=== PATIENT | male | born 1945 | race Caucasian/White ===

== ENCOUNTER → 2016-10-06 | Outpatient (CLI) | payer OTHER ==
[~2016-10-06] MED LIST: ALLO300T2 PO; AMLO-110 PO; ASPI-435 PO; ATOR10TA88 PO; BENA1TAB19 PO; CHOL1000 PO; COLC0.6T54 PO; FLM4 PO; INSUINJ12 SC; LEVE500T13 PO; LVMI SQ; METO50TA17 PO; NTRGSL/4 SL; NVLG SQ; NVLGI SC; PANT1TAB48 PO; PHEN-1043 PO; PRS5 PO; PYRI50TA2 PO; SENN-91 PO
[2016-10-06 13:28] LABS: ESTIMATED AVERAGE GLUCOSE 206 mg/dl; HA1C FLAG Normal (Normal)
[2016-10-06 13:41] LABS: HEMATOCRIT 42.5 % (42-52); MEAN CELL VOLUME 86.9 fL (80-100); MEAN CORPUSCULAR HEMOGLOBIN 28.2 pg (25-34); MEAN CORPUSCULAR HGB CONC 32.5 g/dl (32-36); MEAN PLATELET VOLUME 11.7 fL (7.4-10.4); PLATELET COUNT 217 K/uL (130-400); RED BLOOD COUNT 4.89 M/uL (4.7-6.1); WHITE BLOOD COUNT 7.73 K/uL (4.8-10.8)
[2016-10-06 13:46] LABS: BLOOD UREA NITROGEN 41 mg/dl (7-18); BUN/CREATININE RATIO 21.3 (10-20); CALCIUM 9.4 mg/dl (8.5-10.1); CARBON DIOXIDE 24 mmol/L (21-32); CHLORIDE 108 mmol/L (98-107); GLUCOSE 178 mg/dl (70-99); PHOSPHORUS 3.6 mg/dl (2.5-4.9); POTASSIUM 4.5 mmol/L (3.5-5.1); SODIUM 142 mmol/L (136-145)
[2016-10-06 13:49] LABS: URINE APPEARANCE CLEAR (CLEAR); URINE BILIRUBIN NEG (NEG); URINE COLOR YELLOW; URINE EPITHELIAL CELL AUTO >30 /lpf (0-5); URINE NITRITE NEG (NEG); URINE PROTIEN/CREAT RATIO 0.4 (0-0.2); URINE SPECIFIC GRAVITY 1.011 (1.000-1.030); URINE TOTAL PROTEIN 49.4 mg/dl (0-11.9); UROBILINOGEN NEG (NEG)
[2016-10-06 14:01] LABS: MANUAL MICROSCOPIC REQUIRED? NO; REVIEW REQ? YES
== END ==
LOC: C.LABMFLN 16:26
PROVIDERS: ATTEND Internal Medicine Nephrology
DX: N18.3 Chronic kidney disease, stage 3 (moderate) (principal); E55.9 Vitamin D deficiency, unspecified; E11.22 Type 2 diabetes mellitus with diabetic chronic kidney disease

== ENCOUNTER → 2017-01-10 | Outpatient (CLI) | payer OTHER ==
[~2017-01-10] MED LIST changes: +ATOR10TA82 PO; -ATOR10TA88 PO; -BENA1TAB19 PO; +BENA1TAB53 PO; -PYRI50TA2 PO; +PYRI50TA8 PO
== END | disposition home or self-care (01) ==
LOC: C.LABMFLN 11:14
PROVIDERS: ATTEND Physician Assistant
DX: R30.0 Dysuria (principal); A49.8 Other bacterial infections of unspecified site

== ENCOUNTER 2017-01-11 11:36 | Inpatient (IN) | payer OTHER ==
[~2017-01-11] VITALS: Ht 167.6 cm; Wt 96.6 kg
[~2017-01-11 11:36] MED LIST changes: -ASPI-435 PO; -BENA1TAB53 PO; -FLM4 PO; -LVMI SQ; -METO50TA17 PO; -NVLG SQ; -PHEN-1043 PO; -PRS5 PO
[2017-01-11] MEDS ORDERED: BENA1TAB53 PO (11:59)
[2017-01-11] MEDS ORDERED: LVMI SQ (11:59)
[2017-01-11] MEDS ORDERED: ASPI-435 PO (11:59)
[2017-01-11] MEDS ORDERED: NVLG SQ (11:59)
[2017-01-11] MEDS ORDERED: SODIUM CHLORIDE 0.9% 1000ML 250 ML IV STA (12:44)
[2017-01-11] MEDS ORDERED: SODIUM CHLORIDE 0.9% 1000ML 1,000 ML IV STA (12:44)
--- NOTE | 2017-01-11 13:04 | DIAGNOSTIC IMAGING REPORT ---
CHEST ONE VIEW PORTABLE CLINICAL HISTORY: CHEST PAIN pain COMPARISON STUDY: 06/08/2016 FINDINGS: Mild cardiomegaly. Prior median sternotomy. Diaphragms smooth. Lungs are clear. IMPRESSION: Mild stable cardiomegaly. Otherwise negative study Electronically signed by: Prashant Glasgow M.D. 01/11/2017 1:03 PM Dictated Date/Time: 01/11/2017 1:02 PM
[2017-01-11] MEDS ORDERED: CEFTRIAXONE SOD INJ 1 GM ADDVIAL IV STA (13:10)
[2017-01-11 13:40] LABS: HEMATOCRIT 35.2 % (42-52); MEAN CELL VOLUME 87.8 fL (80-100); MEAN CORPUSCULAR HEMOGLOBIN 29.2 pg (25-34); MEAN CORPUSCULAR HGB CONC 33.2 g/dl (32-36); MEAN PLATELET VOLUME 10.9 fL (7.4-10.4); PLATELET COUNT 192 K/uL (130-400); RED BLOOD COUNT 4.01 M/uL (4.7-6.1); WHITE BLOOD COUNT 26.32 K/uL (4.8-10.8)
[2017-01-11 13:52] LABS: INR 1.1 (0.9-1.1); PARTIAL THROMBOPLASTIN RATIO 1.3
[2017-01-11 14:03] LABS: BUN/CREATININE RATIO 14.8 (10-20); CALCIUM 9.4 mg/dl (8.5-10.1); CREATININE 2.6 mg/dl (0.60-1.40); POTASSIUM 3.9 mmol/L (3.5-5.1)
--- NOTE | 2017-01-11 14:03 | DIAGNOSTIC IMAGING REPORT ---
HEAD CT NONCONTRAST CT DOSE: 638.56 mGycm HISTORY: Mental status change eval for weakness in left leg TECHNIQUE: Multiaxial CT images of the head were performed without the use of intravenous contrast. Comparison: 10/31/2015 Findings: The paranasal sinuses and mastoid air cells are clear. Old right cerebral infarct unchanged in the prior exam. No new or interval finding. No evidence for acute intracranial hemorrhage. No midline shift. Impression: Old right cerebral infarct. No acute process. Electronically signed by: Prashant Glasgow M.D. 01/11/2017 2:02 PM Dictated Date/Time: 01/11/2017 2:00 PM
[2017-01-11 14:32] LABS: BASO % 0.2 %; BASO ABS # 0.04 K/uL (0-0.2); COMPLETE YES; IG% 0.5 %; LYMPH % 8.5 %; LYMPH ABS # 2.24 K/uL (1.2-3.4); MONO % 5.4 %; NEUT % 85.4 %
--- NOTE | 2017-01-11 14:50 | EMERGENCY ROOM VISIT NOTE ---
History Report prepared by Anthony: Alphonso Molina Under the Supervision of: Dr. Virgilio Regalado M.D. First contact with patient: 12:40 Chief Complaint: FALL Stated Complaint: FALL,FEVER History of Present Illness The patient is a 71 year old male who presents to the Emergency Room with complaints of persistent fever of 102 degrees beginning two days ago. He was seen by his PCP's office yesterday for similar symptoms. Per , the patient has been having increased urinary frequency recently. She states that the patient was started on Ciprofloxacin for a possible UTI yesterday. The patient states that he developed diarrhea last night. He denies any black or bloody stool. The patient's states that the patient has fallen three times since yesterday as well. She states "his legs just give out". She states that he has been having difficulties with this for several days. The patient states that the only part of his body that hurts are his knees. He has a history of previous strokes, and has baseline left leg weakness. He denies any chest pain, SOB, or headache. The patient is not on any blood thinners other than aspirin. Source of History: patient, spouse/significant other () Onset: Yesterday Symptom Intensity: 102 degrees Quality: other (fever) Timing: other (persistent) Associated Symptoms: + urinary symptoms (increased frequency), No SOB, No chest pain, No headache Review of Systems See HPI for pertinent positives & negatives. A total of 10 systems reviewed and were otherwise negative. Past Medical & Surgical Medical Problems: (1) CVA (cerebral infarction) (2) Diabetes (3) Hyperkalemia (4) Pulmonary embolism Surgical Problems: (1) H/O heart bypass surgery (2) History of back surgery (3) History of penile implant Old medical records were reviewed. Nurse's notes were reviewed and I agree with. Family History Diabetes mellitus Hypertension Kidney disease Social History Smoking Status: Former Smoker Alcohol Use: none Drug Use: none Marital Status: Housing Status: lives with family Occupation Status: retired Current/Historical Medications Scheduled Allopurinol (Zyloprim), 300 MG PO DAILY Amlodipine (Norvasc), 10 MG PO DAILY Aspirin (Aspirin 81), 81 MG PO DAILY Atorvastatin (Lipitor), 20 MG PO DAILY Benazepril (Lotensin), 40 MG PO DAILY Cholecalciferol (Vitamin D3), 5,000 UNITS PO DAILY Colchicine (Colchicine), 0.6 MG PO DAILY Insulin Aspart (Novolog), 18 UNIT SQ WM Insulin Detemir (Levemir), 65 UNITS SQ HS Levetiracetam (Keppra), 500 MG PO Q12 Nitroglycerin (Nitrostat), 1 TAB SL UD Pantoprazole (Protonix), 40 MG PO DAILY Pyridoxine Hcl (Vitamin B-6), 100 MG PO DAILY Sennosides-Docusate Sodium (Senna S), 1 TABLET PO AMPM Allergies Coded Allergies: Aspirin (Verified Allergy, Severe, SWOLLEN TONGUE, 01/11/17) Citric Acid (Verified Allergy, Severe, SWOLLEN TONGUE, 01/11/17) Sodium Bicarbonate (Verified Allergy, Severe, SWOLLEN TONGUE, 01/11/17) Adhesives (Verified Allergy, Unknown, SKIN BLISTERS AND TEARING, 01/11/17) Physical Exam Vital Signs Date Time Temp Pulse Resp B/P Pulse Ox O2 Delivery O2 Flow Rate FiO2 01/11/17 14:06 98 20 143/71 01/11/17 12:38 100 24 163/90 95 Room Air 01/11/17 12:35 95 Room Air 01/11/17 11:40 36.8 108 20 135/66 97 Room Air Physical Exam General: Well developed, well nourished, chronically ill appearing older male in no acute distress, breathing comfortably on room air. Normal speech. [place] catheter in place with a leg bag in place draining yellow urine. HEENT: Normal cephalic atraumatic. Pupils are equal round and reactive to light. Extraocular movements are intact. Oropharynx is pink with moist mucous membranes. No swelling of the mouth lips or tongue. Neck: Supple with a midline trachea. No meningeal signs or stiffness, no JVD or bruits. No Stridor. Chest: Clear to auscultation bilaterally. No wheezes or rhonchi. No increased work of breathing. Heart: regular rate and rhythm. Abdomen: Soft nontender, nondistended without rebound guarding or rigidity. Extremities: No cyanosis clubbing or edema. No calf tenderness or assymetry Spine/Back. Non tender to palpation. No CVA tenderness Skin: Good turgor without rashes. Neurologic exam: Cranial nerves two through 12 are intact. Motor and sensation are intact. Baseline weakness of the left side. Medical Decision & Procedures ER Provider Diagnostic Interpretation: Radiology results as stated below per my review and radiologist interpretation: HEAD CT NONCONTRAST Findings: The paranasal sinuses and mastoid air cells are clear. Old right cerebral infarct unchanged in the prior exam. No new or interval finding. No evidence for acute intracranial hemorrhage. No midline shift. Impression: Old right cerebral infarct. No acute process. Electronically signed by: Prashant Glasgow M.D. CHEST ONE VIEW PORTABLE FINDINGS: Mild cardiomegaly. Prior median sternotomy. Diaphragms smooth. Lungs are clear. IMPRESSION: Mild stable cardiomegaly. Otherwise negative study Electronically signed by: Prashant Glasgow M.D. Laboratory Results 01/11/17 13:15 Red Blood Count 4.01, Mean Corpuscular Volume 87.8, Mean Corpuscular Hemoglobin 29.2, Mean Corpuscular Hemoglobin Concent 33.2, Mean Platelet Volume 10.9, Neutrophils (%) (Auto) 85.4, Lymphocytes (%) (Auto) 8.5, Monocytes (%) (Auto) 5.4, Eosinophils (%) (Auto) 0.0, Basophils (%) (Auto) 0.2, Neutrophils # (Auto) 22.50, Lymphocytes # (Auto) 2.24, Monocytes # (Auto) 1.42, Eosinophils # (Auto) 0.00, Basophils # (Auto) 0.04 01/11/17 13:15 Test 01/11/17 12:23 01/11/17 13:15 01/11/17 13:18 01/11/17 13:21 Bedside Prothrombin Time INR 1.2 (0.9-1.1) Bedside Glucose 179 mg/dl (70-99) White Blood Count 26.32 K/uL (4.8-10.8) Red Blood Count 4.01 M/uL (4.7-6.1) Hemoglobin 11.7 g/dL (14.0-18.0) Hematocrit 35.2 % (42-52) Mean Corpuscular Volume 87.8 fL (80-100) Mean Corpuscular Hemoglobin 29.2 pg (25-34) Mean Corpuscular Hemoglobin Concent 33.2 g/dl (32-36) Platelet Count 192 K/uL (130-400) Mean Platelet Volume 10.9 fL (7.4-10.4) Neutrophils (%) (Auto) 85.4 % Lymphocytes (%) (Auto) 8.5 % Monocytes (%) (Auto) 5.4 % Eosinophils (%) (Auto) 0.0 % Basophils (%) (Auto) 0.2 % Neutrophils # (Auto) 22.50 K/uL (1.4-6.5) Lymphocytes # (Auto) 2.24 K/uL (1.2-3.4) Monocytes # (Auto) 1.42 K/uL (0.11-0.59) Eosinophils # (Auto) 0.00 K/uL (0-0.5) Basophils # (Auto) 0.04 K/uL (0-0.2) RDW Standard Deviation 48.9 fL (36.4-46.3) RDW Coefficient of Variation 15.2 % (11.5-14.5) Immature Granulocyte % (Auto) 0.5 % Immature Granulocyte # (Auto) 0.12 K/uL (0.00-0.02) Prothrombin Time 12.0 SECONDS (9.0-12.0) Prothromb Time International Ratio 1.1 (0.9-1.1) Activated Partial Thromboplast Time 34.1 SECONDS (21.0-31.0) Partial Thromboplastin Ratio 1.3 Anion Gap 8.0 mmol/L (3-11) Est Creatinine Clear Calc Drug Dose 27.4 ml/min Estimated GFR () 27.1 Estimated GFR (Non- 23.4 BUN/Creatinine Ratio 14.8 (10-20) Calcium Level 9.4 mg/dl (8.5-10.1) Total Bilirubin 0.8 mg/dl (0.2-1) Direct Bilirubin 0.2 mg/dl (0-0.2) Aspartate Amino Transf (AST/SGOT) 31 U/L (15-37) Alanine Aminotransferase (ALT/SGPT) 49 U/L (12-78) Alkaline Phosphatase 95 U/L (45-117) Total Protein 8.0 gm/dl (6.4-8.2) Albumin 3.4 gm/dl (3.4-5.0) Lipase 139 U/L (73-393) Bedside Troponin I 0.810 ng/ml (0-0.045) Bedside Lactic Acid Venous 1.55 mmol/L (0.90-1.70) Laboratory studies as stated above per my review. Medications Administered Medications (Trade) Dose Ordered Sig/Ziyad Route Start Time Stop Time Status Last Admin Dose Admin Sodium Chloride 250 ml @ 999 mls/hr Q16M STAT IV 01/11/17 12:44 01/11/17 12:59 DC 01/11/17 13:08 999 MLS/HR Sodium Chloride (Nss 1000ml) 1,000 ml @ 100 mls/hr Q10H STAT IV 01/11/17 12:44 01/11/17 22:43 01/11/17 13:05 100 MLS/HR Ceftriaxone Sodium (Rocephin Inj) 1 gm NOW STAT IV 01/11/17 13:10 01/11/17 13:12 DC 01/11/17 14:42 1 GM ECG Indication: other (falls) Rate (beats per minute): 99 Rhythm: normal sinus Findings: other (LVH. LAD. ) Comparison ECG Date: Jun 08, 2016 Change: The rate has increased. ED Course 1240: Past medical records reviewed. The patient was evaluated in room B12B, and a complete history and physical examination were performed. 1244: Ordered Sodium Chloride 1000 ml @ 100 mls/hr IV, Sodium Chloride 250 ml @ 999 mls/hr IV. 1322: I reassessed the patient. She is resting comfortably awaiting his CT. 1310: Ordered Rocephin Inj 1 gm IV. 1442: Upon reevaluation, the patient is resting comfortably. I discussed the results and treatment plan with the patient. He verbalized agreement of the treatment plan. The patient will be evaluated for further management. Medical Decision Differentials include, but are not limited to; sepsis, UTI, CVA, dehydration, and electrolyte or metabolic abnormality. This patient comes in as described above. he's had weakness and falls. He was seen by his doctors office yesterday with fever and urinary symptoms. He was started on Cipro, he had 3 dosages. He's fallen twice a day has baseline weakness on his left side from previous stroke but seems more weaker just in general. IV access established. Initially he was coughing and I wanted make sure he was in congestive heart failure so was given a smaller bolus initially as he was normotensive and non-tachycardic. Chest x-ray noted up being clear. I checked his urinalysis from yesterday and culture and he has gram negative bacilli. Most likely this is Escherichia coli. I did consult hour ED pharmacist recommended Rocephin based on this. He was given 1 g Rocephin IV. His lactic acid is not elevated. His white count was significantly elevated. BUN and creatinine are elevated compared to baseline mildly. He is not anemic. CAT scan of his head is unremarkable. With his creatinine being at more elevated as well as his white count being elevated, I did also order a CT stone study to make sure that he does not have a no obstructive uropathy. I have consulted Dr. Gray who saw the patient ER and will admit him for further treatment and evaluation. Consults Time Called: 1418 Consulting Physician: Dr. Vianney IniguezTHE [facility] [place] Returned Call: [phone] Discussed the patient's case with Dr. Faith. The patient will be evaluated for further management. Impression Primary Impression: UTI (urinary tract infection) Additional Impressions: Sepsis Weakness Scribe Attestation The scribe's documentation has been prepared under my direction and personally reviewed by me in its entirety. I confirm that the note above accurately reflects all work, treatment, procedures, and medical decision making performed by me. Departure Information Dispostion Being Evaluated By Hospitalist Referrals Tamiko Maier M.D. (PCP) Patient Instructions My [facility] Problem Qualifiers
[2017-01-11] MEDS ORDERED: POLYETHYLENE (MIRALAX) 17 GM PACK PO PRN (15:00)
[2017-01-11] MEDS ORDERED: NITROGLYCERIN 0.4 MG SL PER TAB CHARGE SL PRN (15:00)
[2017-01-11] MEDS ORDERED: MAGNESIUM HYDROXIDE SUSP 30 ML UDC PO PRN (15:00)
[2017-01-11] MEDS ORDERED: ALUMINUM/MAGNESIUM/SIMETH (MAALOX MAX) 30 ML UDC PO PRN (15:00)
[2017-01-11] MEDS ORDERED: ONDANSETRON INJ 2 MG/ML 2 ML VIAL IV PRN (15:00)
[2017-01-11] MEDS ORDERED: GLUCOSE 10 TABS/TUBE PO PRN (15:15)
[2017-01-11] MEDS ORDERED: GLUCAGON FOR INJ 1 MG VIAL SQ PRN (15:15)
[2017-01-11] MEDS ORDERED: DEXTROSE 50% 50 ML SYR IV PRN (15:15)
[2017-01-11] MEDS ORDERED: GLUCOSE 40% GEL 15 GM TUBE PO PRN (15:15)
--- NOTE | 2017-01-11 15:27 | History and Physical ---
History & Physical Date & Time of Service: January 11, 2017 at 15:02 Chief Complaint: Fall,Fever Primary Care Physician: Tamiko Maier M.D. History of Present Illness Source: patient, family, clinic records, hospital records Patient is a pleasant 71 y/o male, with PMHx of CVA w/ residual left-sided weakness, T2DM, CKD stage III, HTN, seizure disorder, GERD, and gout, who presented to the ED because of persistent fevers/chills, weakness, and pain w/ urination. According to family, patient has been spiking a fever around 102 since Tuesday. Patient admits to bilateral lower extremity weakness. According to family, patient is usually able to ambulate w/ a walker. On Tuesday, patient was so weak, he was unable to ambulation to hindu. +burning w/ urination. Patient does have a history of CVA w/ residual left-sided weakness. Patient denies confusion, facial droop, changes in vision, slurred speech, worsening/ new weakness. Patient denies any sweats, lightheadedness, dizziness, vision changes, CP, palpitations, edema, SOB, wheezing, cough, abdominal pain, nausea, vomiting, diarrhea, melena, numbness/tingling, muscle/joint pain, anxiety/ depression, active bleeding, or new skin discoloration/changes. Past Medical/Surgical History Medical Problems: CVA w/ residual left-sided weakness T2DM CKD stage III HTN seizure disorder GERD gout Surgical Problems: (1) H/O heart bypass surgery Status: Resolved (2) History of back surgery Status: Resolved (3) History of penile implant Status: Resolved Family History Diabetes mellitus Hypertension Kidney disease Social History Smoking Status: Former Smoker Drug Use: none Marital Status: Housing status: lives with family Occupational Status: retired Immunizations History of Influenza Vaccine: Yes History of Tetanus Vaccine?: Yes History of Pneumococcal: Yes Pneumococcal Date: Mar 17, 2008 History of Hepatitis B Vaccine: Unknown Multi-Drug Resistant Organisms History of MDRO: No Allergies Coded Allergies: Aspirin (Verified Allergy, Severe, SWOLLEN TONGUE, 01/11/17) Citric Acid (Verified Allergy, Severe, SWOLLEN TONGUE, 01/11/17) Sodium Bicarbonate (Verified Allergy, Severe, SWOLLEN TONGUE, 01/11/17) Adhesives (Verified Allergy, Unknown, SKIN BLISTERS AND TEARING, 01/11/17) Home Medications Scheduled Allopurinol (Zyloprim), 300 MG PO DAILY Amlodipine (Norvasc), 10 MG PO DAILY Aspirin (Aspirin 81), 81 MG PO DAILY Atorvastatin (Lipitor), 20 MG PO DAILY Benazepril (Lotensin), 40 MG PO DAILY Cholecalciferol (Vitamin D3), 5,000 UNITS PO DAILY Colchicine (Colchicine), 0.6 MG PO DAILY Insulin Aspart (Novolog), 18 UNIT SQ WM Insulin Detemir (Levemir), 65 UNITS SQ HS Levetiracetam (Keppra), 500 MG PO Q12 Nitroglycerin (Nitrostat), 1 TAB SL UD Pantoprazole (Protonix), 40 MG PO DAILY Pyridoxine Hcl (Vitamin B-6), 100 MG PO DAILY Sennosides-Docusate Sodium (Senna S), 1 TABLET PO AMPM Physical Exam Vital Signs Date Time Temp Pulse Resp B/P Pulse Ox O2 Delivery O2 Flow Rate FiO2 01/11/17 14:06 98 20 143/71 01/11/17 12:38 100 24 163/90 95 Room Air 01/11/17 12:35 95 Room Air 01/11/17 11:40 36.8 108 20 135/66 97 Room Air General Appearance: no apparent distress, + obese Head: normocephalic, atraumatic Eyes: normal inspection, PERRL ENT: hearing grossly normal Neck: supple Respiratory/Chest: lungs clear, no respiratory distress, no accessory muscle use Cardiovascular: + tachycardia (rhythm regular ) Abdomen/GI: normal bowel sounds, soft, + tenderness (suprapubic tenderness ) Extremities/Musculoskelatal: no calf tenderness, no pedal edema Neurologic/Psych: alert, normal mood/affect, oriented x 3 Skin: normal color, warm/dry, no rash Diagnostics Laboratory Results Results Past 24 Hours Test 01/11/17 12:23 01/11/17 13:15 01/11/17 13:18 01/11/17 13:21 Range/Units Bedside Prothrombin Time INR 1.2 0.9-1.1 Bedside Glucose 179 70-99 mg/dl White Blood Count 26.32 4.8-10.8 K/uL Red Blood Count 4.01 4.7-6.1 M/uL Hemoglobin 11.7 14.0-18.0 g/dL Hematocrit 35.2 42-52 % Mean Corpuscular Volume 87.8 80-100 fL Mean Corpuscular Hemoglobin 29.2 25-34 pg Mean Corpuscular Hemoglobin Concent 33.2 32-36 g/dl Platelet Count 192 130-400 K/uL Mean Platelet Volume 10.9 7.4-10.4 fL Neutrophils (%) (Auto) 85.4 % Lymphocytes (%) (Auto) 8.5 % Monocytes (%) (Auto) 5.4 % Eosinophils (%) (Auto) 0.0 % Basophils (%) (Auto) 0.2 % Neutrophils # (Auto) 22.50 1.4-6.5 K/uL Lymphocytes # (Auto) 2.24 1.2-3.4 K/uL Monocytes # (Auto) 1.42 0.11-0.59 K/uL Eosinophils # (Auto) 0.00 0-0.5 K/uL Basophils # (Auto) 0.04 0-0.2 K/uL RDW Standard Deviation 48.9 36.4-46.3 fL RDW Coefficient of Variation 15.2 11.5-14.5 % Immature Granulocyte % (Auto) 0.5 % Immature Granulocyte # (Auto) 0.12 0.00-0.02 K/uL Prothrombin Time 12.0 9.0-12.0 SECONDS Prothromb Time International Ratio 1.1 0.9-1.1 Activated Partial Thromboplast Time 34.1 21.0-31.0 SECONDS Partial Thromboplastin Ratio 1.3 Sodium Level 140 136-145 mmol/L Potassium Level 3.9 3.5-5.1 mmol/L Chloride Level 107 98-107 mmol/L Carbon Dioxide Level 25 21-32 mmol/L Anion Gap 8.0 3-11 mmol/L Blood Urea Nitrogen 39 7-18 mg/dl Creatinine 2.60 0.60-1.40 mg/dl Est Creatinine Clear Calc Drug Dose 27.4 ml/min Estimated GFR () 27.1 Estimated GFR (Non- 23.4 BUN/Creatinine Ratio 14.8 10-20 Random Glucose 184 70-99 mg/dl Calcium Level 9.4 8.5-10.1 mg/dl Total Bilirubin 0.8 0.2-1 mg/dl Direct Bilirubin 0.2 0-0.2 mg/dl Aspartate Amino Transf (AST/SGOT) 31 15-37 U/L Alanine Aminotransferase (ALT/SGPT) 49 12-78 U/L Alkaline Phosphatase 95 45-117 U/L Total Protein 8.0 6.4-8.2 gm/dl Albumin 3.4 3.4-5.0 gm/dl Lipase 139 73-393 U/L Bedside Troponin I 0.810 0-0.045 ng/ml Bedside Lactic Acid Venous 1.55 0.90-1.70 mmol/L Microbiology Results 01/11/17 Blood Culture, Received Pending 01/11/17 Blood Culture, Received Pending Diagnostic Radiology HEAD CT NONCONTRAST CT DOSE: 638.56 mGycm HISTORY: Mental status change eval for weakness in left leg TECHNIQUE: Multiaxial CT images of the head were performed without the use of intravenous contrast. Comparison: 10/31/2015 Findings: The paranasal sinuses and mastoid air cells are clear. Old right cerebral infarct unchanged in the prior exam. No new or interval finding. No evidence for acute intracranial hemorrhage. No midline shift. Impression: Old right cerebral infarct. No acute process. Electronically signed by: Prashant Glasgow M.D. 01/11/2017 2:02 PM Dictated Date/Time: 01/11/2017 2:00 PM The status of this report is Signed. Draft = Not yet reviewed or approved by Radiologist. Signed = Reviewed and approved by Radiologist. CHEST ONE VIEW PORTABLE CLINICAL HISTORY: CHEST PAIN pain COMPARISON STUDY: 06/08/2016 FINDINGS: Mild cardiomegaly. Prior median sternotomy. Diaphragms smooth. Lungs are clear. IMPRESSION: Mild stable cardiomegaly. Otherwise negative study Electronically signed by: Prashant Glasgow M.D. 01/11/2017 1:03 PM Dictated Date/Time: 01/11/2017 1:02 PM The status of this report is Signed. Draft = Not yet reviewed or approved by Radiologist. Signed = Reviewed and approved by Radiologist. EKG REMIGIO WEATHERS ID:[id number] 11-JAN-2017 14:01:10 [facility] Normal sinus rhythm Left axis deviation Abnormal ECG When compared with ECG of 08-JUN-2016 22:38, Vent. rate has increased BY 46 BPM 25mm/s 10mm/mV 150Hz 8.0 SP2 12SL 241 VIVIANA: 13 Referred by: Referred Self Unconfirmed Vent. rate 99 BPM KS interval 172 ms QRS duration 110 ms QT/QTc 350/449 ms P-R-T axes 63 -63 84 1945 (71 yr) Male 89in 1lb [facility]15 [employer]erial [employer] Duster:CHACORTA TINAJERO Test ind: Impression Assessment and Plan 71 y/o male, with PMHx of CVA w/ residual left-sided weakness, T2DM, CKD stage III, HTN, seizure disorder, GERD, and gout, who presented to the ED because of persistent fevers/chills, weakness, and pain w/ urination. UTI w/ sepsis w/ HR >90 and WBC >12.00: - Admit to tele for cardiac monitoring - Trend cardiac enzymes- initial trop 0.810 - IV Rocephin - IVF @ 125 ml/hr - Pyridium contraindicated due to CrCl <50 - UCx and BCx pending - Tylenol PRN pain and/or fever - Head CT- negative for acute intracranial process - CXR- negative study - Abdominal CT pending CARLITOS on CKD stage III- baseline Cr. 1.6-2.0: - Treat w/ IVF - Follow PRP - Hold nephrotoxic agents Weakness: PT/OT consulted HTN: - Hold Benazepril due to CARLITOS - Continue Norvasc 10 mg daily - Hydralazine 10 mg IV PRN Gout: - Continue Allopurinol - Hold Colchicine due to CARLITOS T2DM: - Hold home regimen - BSG ACHS w/ sliding insulin scale h/o CVA w/ residual left-sided weakness: Continue ASA 81 mg daily and Lipitor 20 mg daily Seizure disorder: Keppra 500 mg PO q12h GERD: Protonix daily GI Prophylaxis: Maalox PRN, IV Zofran PRN, Colace and/or Milk of Mag PRN DVT prophylaxis: Heparin 5000 units SQ q12 hrs, PHIL and SCDs Code Status: LEVEL I, FULL Dispo: - From home, lives w/ family - PT/OT consulted - immigration services officer consulted Level of Care Telemetry Resuscitation Status FULL RESUSCITATION VTE Prophylaxis VTE Risk Assessment Done? Y/N: Yes Risk Level: Moderate Given or contraindicated: Unfractionated heparin SQ, T.E.D. Stockings, SCD's
[2017-01-11] MEDS: INSULIN ASPART 100 UNITS/ML 3 ML PEN SC SCH ×2 (16:30→21:08)
[2017-01-11 16:43] VITALS: BP 163/76; PULSE 102; TEMP 37.3; O2SAT 93
--- NOTE | 2017-01-11 16:50 | DIAGNOSTIC IMAGING REPORT ---
CT SCAN OF THE ABDOMEN AND PELVIS WITHOUT CONTRAST CLINICAL HISTORY: Generalized abdominal pain. Trauma. Small bowel obstruction. COMPARISON STUDY: October 19, 2013 TECHNIQUE: CT scan of the abdomen and pelvis was performed from the lung bases to the proximal femurs. Images are reviewed in the axial, sagittal, and coronal planes. IV contrast was not administered for this examination. CT DOSE: 2022.42 mGy.cm FINDINGS: Lower chest: There is respiratory motion artifact. There are no significant pleural effusions. There is no pneumothorax. There is small hiatal hernia Liver: There is mild hepatomegaly ((21 cm). No masses are visualized this noncontrast study. Gallbladder: Unremarkable. Spleen: The spleen is borderline enlarged measuring 11.5 cm Pancreas: Unremarkable. Adrenal glands: Unremarkable. Kidneys: The unenhanced kidneys are normal in size without hydronephrosis. There is no contour deforming renal mass lesion. No renal calculi are identified. Bowel: There are no transition zones indicate bowel obstruction. There is colonic diverticulosis. There are no acute peridiverticular inflammatory changes. There is no evidence of acute appendicitis Peritoneum: There is no intraperitoneal free air or abdominal ascites. There is small fat-containing hernias. Vasculature: There is an indwelling IVC filter. There is no abdominal aortic aneurysm. Adenopathy: None. Pelvic viscera: The prostate is enlarged measuring 6.3 cm. There is a reservoir from a trial implant. There is bladder wall thickening. Skeletal structures: There are postsurgical changes of discectomies laminectomies and posterior spinal fusion. IMPRESSION: 1. No acute abdominal or pelvic findings 2. No evidence of bowel obstruction. No evidence of free air 3. Diverticulosis. No evidence of acute diverticulitis. No evidence of acute appendicitis 4. Prostamegaly and mild bladder wall thickening Electronically signed by: Julius Veronica M.D. 01/11/2017 4:48 PM Dictated Date/Time: 01/11/2017 4:43 PM
[2017-01-11 17:03] VITALS: BP 163/76; PULSE 102; TEMP 37.3; O2SAT 93; Ht 167.6 cm; Wt 96.6 kg
[2017-01-11] MEDS: SODIUM CHLORIDE 0.9% 1000ML 1,000 ML IV SCH (17:26)
[2017-01-11] MEDS: ACETAMINOPHEN 325 MG TAB PO PRN (17:34)
[2017-01-11 19:13] VITALS: BP 130/63; PULSE 98; TEMP 37; O2SAT 92
[2017-01-11] MEDS: LEVETIRACETAM 500 MG TAB PO SCH (21:01)
[2017-01-11] MEDS: HEPARIN SOD 5000 UNIT/0.5 ML CARP SQ SCH (21:08)
[2017-01-11 21:50] LABS: URINE APPEARANCE CLEAR (CLEAR); URINE BILIRUBIN NEG (NEG); URINE COLOR YELLOW; URINE EPITHELIAL CELL AUTO >30 /lpf (0-5); URINE NITRITE NEG (NEG); URINE SPECIFIC GRAVITY 1.019 (1.000-1.030); UROBILINOGEN NEG (NEG)
[2017-01-11 21:52] LABS: MANUAL MICROSCOPIC REQUIRED? NO; REVIEW REQ? NO
[2017-01-11 23:49] VITALS: BP 169/76; PULSE 100; TEMP 36.9; O2SAT 97
[2017-01-12] MEDS: SODIUM CHLORIDE 0.9% 1000ML 1,000 ML IV SCH ×4 (00:42→23:59)
[2017-01-12 05:01] VITALS: BP 157/73; PULSE 99; TEMP 36.9; O2SAT 93
[2017-01-12 05:07] LABS: HEMATOCRIT 33.1 % (42-52); MEAN CELL VOLUME 88.5 fL (80-100); MEAN CORPUSCULAR HEMOGLOBIN 28.3 pg (25-34); MEAN PLATELET VOLUME 10.5 fL (7.4-10.4); PLATELET COUNT 190 K/uL (130-400); RED BLOOD COUNT 3.74 M/uL (4.7-6.1); WHITE BLOOD COUNT 19.06 K/uL (4.8-10.8)
[2017-01-12 05:34] LABS: BLOOD UREA NITROGEN 39 mg/dl (7-18); BUN/CREATININE RATIO 19.4 (10-20); CALCIUM 8.7 mg/dl (8.5-10.1); CARBON DIOXIDE 24 mmol/L (21-32); CHLORIDE 108 mmol/L (98-107); GLUCOSE 258 mg/dl (70-99); POTASSIUM 4.2 mmol/L (3.5-5.1); SODIUM 141 mmol/L (136-145)
[2017-01-12 06:58] VITALS: BP 160/73; PULSE 108; TEMP 36.7; O2SAT 93
[2017-01-12] MEDS: INSULIN ASPART 100 UNITS/ML 3 ML PEN SC SCH ×4 (08:51→21:20)
[2017-01-12] MEDS: PYRIDOXINE HCL 50 MG TAB PO SCH (08:57)
[2017-01-12] MEDS: ALLOPURINOL 300 MG TAB PO SCH (08:58)
[2017-01-12] MEDS: ATORVASTATIN 20 MG TAB PO SCH (08:58)
[2017-01-12] MEDS: PANTOprazole SOD 40 MG TAB PO SCH (08:59)
[2017-01-12] MEDS: CHOLECALCIFEROL 1000 INTER.UNIT TAB PO SCH (08:59)
[2017-01-12] MEDS: AMLODIPINE BESYLATE 5 MG TAB PO SCH (08:59)
[2017-01-12] MEDS: ASPIRIN 81 MG ECTAB PO SCH (08:59)
[2017-01-12] MEDS ORDERED: COLCHICINE 0.6 MG TAB PO SCH (09:00)
[2017-01-12] MEDS: HEPARIN SOD 5000 UNIT/0.5 ML CARP SQ SCH ×2 (09:03→21:20)
--- NOTE | 2017-01-12 09:49 | Hospitalist Progress Note ---
Hospitalist Progress Note Date of Service January 12, 2017. (Chitra Bah PA-C) Subjective Pt evaluation today including: conversation w/ patient, physical exam, chart review, lab review, review of studies, review of inpatient medication list Patient seen and evaluated. He was admitted overnight for fevers/chills, weakness, and painful urination. He states he uses [place] catheters at home when necessary. CT reveals prostamegaly and mild bladder wall thickening. He states the discomfort with urination is improving but frequency remains. During exam patient states he feels like he needs to void but having some retention. He does not recall having issues with broken stream or hesitancy in the past. Will bladder scan and he may need straight cath vs [place] placed. He does not think he has been seen by a Urologist and could not see anything in [employer] He does not recall ever being on medications such as Flomax or Proscar. He states that he feels better overall and was actually anticipating going home today. He does report looser stools [employer] but states he BM here was formed. Constitutional: + weakness (improving), No chills, No fever ENT: No nasal symptoms, No sore throat Respiratory: + cough, No shortness of breath Cardiovascular: No chest pain Abdomen: No GI bleeding, No constipation, No diarrhea, No nausea, No pain, No vomiting Musculoskeletal: No calf pain Male : + dysuria, + incontinence, + urinary frequency, No hematuria Neurologic: + numbness/tingling (chronic - intermittent) Heme: No abnormal bleeding/bruising Skin: No rash (Chitra Bah, ASHLEYC) Medications Current Inpatient Medications Medications (Trade) Dose Ordered Sig/Ziyad Route Start Time Stop Time Status Last Admin Dose Admin Heparin Sodium (Porcine) 5000 unit 5,000 unit Q12 SQ 01/11/17 21:00 02/10/17 20:59 01/12/17 09:03 5,000 UNIT Sodium Chloride (Nss 1000ml) 1,000 ml @ 125 mls/hr Q8H IV 01/11/17 16:30 02/10/17 14:51 01/12/17 08:57 125 MLS/HR Acetaminophen (Tylenol Tab) 650 mg Q4H PRN PO 01/11/17 15:00 02/10/17 14:59 01/11/17 17:34 650 MG Al Hydrox/Mg Hydrox/Simethicone (Maalox Max Susp) 15 ml Q4H PRN PO 01/11/17 15:00 02/10/17 14:59 Magnesium Hydroxide (Milk Of Magnesia Susp) 30 ml Q12H PRN PO 01/11/17 15:00 02/10/17 14:59 Ondansetron HCl (Zofran Inj) 4 mg Q6H PRN IV 01/11/17 15:00 02/10/17 14:59 Nitroglycerin (Nitrostat Tab) 0.4 mg UD PRN SL 01/11/17 15:00 02/10/17 14:59 Polyethylene (Miralax Powder Packet) 17 gm DAILY PRN PO 01/11/17 15:00 02/10/17 14:59 Allopurinol (Zyloprim Tab) 300 mg DAILY PO 01/12/17 09:00 02/11/17 08:59 01/12/17 08:58 300 MG Amlodipine Besylate (Norvasc Tab) 10 mg DAILY PO 01/12/17 09:00 02/11/17 08:59 01/12/17 08:59 10 MG Aspirin (Ecotrin Tab) 81 mg DAILY PO 01/12/17 09:00 02/11/17 08:59 01/12/17 08:59 81 MG Atorvastatin Calcium (Lipitor Tab) 20 mg DAILY PO 01/12/17 09:00 02/11/17 08:59 01/12/17 08:58 20 MG Cholecalciferol (Vitamin D Tab) 1,000 inter.unit DAILY PO 01/12/17 09:00 02/11/17 08:59 01/12/17 08:59 1,000 INTER.UNIT Levetiracetam (Keppra Tab) 500 mg Q12 PO 01/11/17 21:00 02/10/17 20:59 01/11/17 21:01 500 MG Pantoprazole Sodium (Protonix Tab) 40 mg DAILY PO 01/12/17 09:00 02/11/17 08:59 01/12/17 08:59 40 MG Pyridoxine HCl (Vitamin B-6 Tab) 100 mg DAILY PO 01/12/17 09:00 02/11/17 08:59 01/12/17 08:57 100 MG Senna/Docusate Sodium (Senokot S Tab) 1 tab BID PRN PO 01/11/17 15:00 02/10/17 14:59 Hydralazine HCl 10 mg 10 mg Q6 PRN IV. 01/11/17 15:00 02/10/17 14:59 Ceftriaxone Sodium/Dextrose (Rocephin Inj/ Dextrose Add-[place] 50ML) 50 ml @ 100 mls/hr Q24H IV 01/12/17 14:00 01/20/17 13:59 Insulin Aspart (novoLOG ASPART) SLIDING SCALE G... ACHS SC 01/11/17 16:30 02/10/17 16:29 01/12/17 08:51 5 UNITS Glucose (Glucose 40% Gel) 15-30 GRAMS 15 GRAMS... UD PRN PO 01/11/17 15:15 02/10/17 15:14 Glucose (Glucose Chew Tab) 4-8 Tablets 4 Tabl... UD PRN PO 01/11/17 15:15 02/10/17 15:14 Dextrose (Dextrose 50% 50ML Syringe) 25-50ML OF 50% DW IV FOR... UD PRN IV 01/11/17 15:15 02/10/17 15:14 Glucagon (Glucagon Inj) 1 mg UD PRN SQ 01/11/17 15:15 02/10/17 15:14 (Chitra Bah, ASHLEYC) Objective Vital Signs Date Time Temp Pulse Resp B/P Pulse Ox O2 Delivery O2 Flow Rate FiO2 01/12/17 06:58 36.7 108 18 160/73 93 Room Air 01/12/17 05:01 36.9 99 20 157/73 93 Room Air 01/12/17 04:00 Room Air 01/12/17 00:00 Room Air 01/11/17 23:49 36.9 100 20 169/76 97 Room Air 01/11/17 20:00 Room Air 01/11/17 19:13 37.0 98 22 130/63 92 Room Air 01/11/17 17:03 37.3 102 20 163/76 93 Room Air 01/11/17 16:43 37.3 102 20 163/76 93 Room Air 01/11/17 15:59 36.8 102 24 154/72 95 01/11/17 15:30 102 24 154/72 01/11/17 15:00 103 25 153/72 01/11/17 14:06 98 20 143/71 01/11/17 12:38 100 24 163/90 95 Room Air 01/11/17 12:35 95 Room Air 01/11/17 11:40 36.8 108 20 135/66 97 Room Air (Chitra Bah PA-C) Physical Exam General Appearance: WD/WN, no apparent distress, + obese, + pertinent finding ( flat affect/mask-like face) Eyes: normal inspection ENT: hearing grossly normal Neck: supple, no JVD, trachea midline Respiratory/Chest: lungs clear, normal breath sounds, no respiratory distress, no accessory muscle use Cardiovascular: regular rate, rhythm, no gallop, no murmur Abdomen: normal bowel sounds, non tender, + distended Extremities: no pedal edema, no calf tenderness Neurologic/Psychiatric: alert, oriented x 3, + pertinent finding (L residual deficits from previous CVA (baseline)) Skin: normal color (Chitra Bah, ASHLEYC) Laboratory Results Last 24 Hours Test 01/11/17 12:23 01/11/17 13:15 01/11/17 13:18 01/11/17 13:21 Bedside Prothrombin Time INR 1.2 Bedside Glucose 179 mg/dl White Blood Count 26.32 K/uL Red Blood Count 4.01 M/uL Hemoglobin 11.7 g/dL Hematocrit 35.2 % Mean Corpuscular Volume 87.8 fL Mean Corpuscular Hemoglobin 29.2 pg Mean Corpuscular Hemoglobin Concent 33.2 g/dl Platelet Count 192 K/uL Mean Platelet Volume 10.9 fL Neutrophils (%) (Auto) 85.4 % Lymphocytes (%) (Auto) 8.5 % Monocytes (%) (Auto) 5.4 % Eosinophils (%) (Auto) 0.0 % Basophils (%) (Auto) 0.2 % Neutrophils # (Auto) 22.50 K/uL Lymphocytes # (Auto) 2.24 K/uL Monocytes # (Auto) 1.42 K/uL Eosinophils # (Auto) 0.00 K/uL Basophils # (Auto) 0.04 K/uL RDW Standard Deviation 48.9 fL RDW Coefficient of Variation 15.2 % Immature Granulocyte % (Auto) 0.5 % Immature Granulocyte # (Auto) 0.12 K/uL Prothrombin Time 12.0 SECONDS Prothromb Time International Ratio 1.1 Activated Partial Thromboplast Time 34.1 SECONDS Partial Thromboplastin Ratio 1.3 Sodium Level 140 mmol/L Potassium Level 3.9 mmol/L Chloride Level 107 mmol/L Carbon Dioxide Level 25 mmol/L Anion Gap 8.0 mmol/L Blood Urea Nitrogen 39 mg/dl Creatinine 2.60 mg/dl Est Creatinine Clear Calc Drug Dose 27.4 ml/min Estimated GFR () 27.1 Estimated GFR (Non- 23.4 BUN/Creatinine Ratio 14.8 Random Glucose 184 mg/dl Calcium Level 9.4 mg/dl Total Bilirubin 0.8 mg/dl Direct Bilirubin 0.2 mg/dl Aspartate Amino Transf (AST/SGOT) 31 U/L Alanine Aminotransferase (ALT/SGPT) 49 U/L Alkaline Phosphatase 95 U/L Total Protein 8.0 gm/dl Albumin 3.4 gm/dl Lipase 139 U/L Bedside Troponin I 0.810 ng/ml Bedside Lactic Acid Venous 1.55 mmol/L Test 01/11/17 16:48 01/11/17 19:57 01/11/17 21:00 01/11/17 21:18 Bedside Glucose 166 mg/dl 230 mg/dl Creatine Kinase MB Ratio Creatine Kinase MB 1.5 ng/ml Troponin I 0.433 ng/ml Test 01/12/17 04:55 01/12/17 07:31 White Blood Count 19.06 K/uL Red Blood Count 3.74 M/uL Hemoglobin 10.6 g/dL Hematocrit 33.1 % Mean Corpuscular Volume 88.5 fL Mean Corpuscular Hemoglobin 28.3 pg Mean Corpuscular Hemoglobin Concent 32.0 g/dl RDW Standard Deviation 49.4 fL RDW Coefficient of Variation 15.3 % Platelet Count 190 K/uL Mean Platelet Volume 10.5 fL Sodium Level 141 mmol/L Potassium Level 4.2 mmol/L Chloride Level 108 mmol/L Carbon Dioxide Level 24 mmol/L Anion Gap 9.0 mmol/L Blood Urea Nitrogen 39 mg/dl Creatinine 2.00 mg/dl Est Creatinine Clear Calc Drug Dose 35.7 ml/min Estimated GFR () 37.3 Estimated GFR (Non- 32.2 BUN/Creatinine Ratio 19.4 Random Glucose 258 mg/dl Calcium Level 8.7 mg/dl Creatine Kinase MB 1.1 ng/ml Creatine Kinase MB Ratio Troponin I 0.228 ng/ml Bedside Glucose 259 mg/dl (Chitra Bah PA-C) Assessment and Plan 71 y/o male, with PMHx of CVA w/ residual left-sided weakness, T2DM, CKD stage III, HTN, seizure disorder, GERD, and gout, who presented to the ED because of persistent fevers/chills, weakness, and pain w/ urination. Sepsis 2/2 UTI: Klebsiella and E. Coli - UCx (outpatient 01/10) - Pansensitive Klebsiella pneumoniae and pansensitive E. 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 - patient has H/O inflatable implant for ED - Continue Rocephin 1 g IV until BCx results - did receive one dose Cipro [employer] - NSS 125 mL/hr - Bladder scan and straight cath as necessary - consideration for Urology input or outpatient follow-up Elevated Troponins: - Troponins peaked at 0.810 (POC reading), thne 0.433 and now 0.228 - likely demand ischemia vs CARLITOS on CKD Acute Kidney Injury on CKD Stage III: Baseline Cr 1.6-2.0 - Cr improved to 2.0 from 2.6 on admission - continue hydration - Hold nephrotoxic agents and follow BMP Weakness: Likely from UTI superimposed on L residual deficits from prior CVA - PT/OT evaluations - pending HTN: - Hold Benazepril due to CARLITOS - Continue Norvasc 10 mg daily and Hydralazine 10 mg IV PRN T2DM: - Hold home regimen - Levemir 65 units SC HS and Novolog - Add Lantus 20 units SC BID with SSI with correction factor 30 and carb ratio 9 - will monitor sugars and possible place back on home regimen - BSG ACHS H/O CVA w/ Residual L-Sided Weakness: ASA 81 mg daily and Lipitor 20 mg daily Seizure Disorder: STABLE - Keppra 500 mg BID DVT Prophylaxis: Heparin 5000 units SC Q12H, PHIL/SCDs Code Status: FULL RESUSCITATION Dispo: From home, lives w/ family - PT/OT consulted - director financial services consulted Continued [facility] stay due to: multiple IV medications needed (Chitra Bah PA-C)
[2017-01-12] MEDS: LEVETIRACETAM 500 MG TAB PO SCH ×2 (09:59→21:21)
[2017-01-12 12:00] VITALS: BP 167/75; PULSE 97; TEMP 36.9; O2SAT 97
[2017-01-12] MEDS ORDERED: INSULIN GLARGINE SOLOSTAR 100 UNITS/ML 3 ML PEN SC ONE (13:00)
[2017-01-12] MEDS ORDERED: CEFTRIAXONE SOD INJ 1 GM in DEXTROSE 5% ADD-VANTAGE 50ML 50 ML IV SCH (14:00)
[2017-01-12 15:32] VITALS: BP 136/70; PULSE 91; TEMP 37.1; O2SAT 94
[2017-01-12 20:06] VITALS: BP 153/71; PULSE 99; TEMP 37.4; O2SAT 94
[2017-01-12] MEDS: INSULIN GLARGINE SOLOSTAR 100 UNITS/ML 3 ML PEN SC SCH (21:19)
[2017-01-12 23:31] VITALS: BP 161/74; PULSE 93; TEMP 36.9; O2SAT 93
[2017-01-13] VITALS (9 sets, daily range): BP systolic 149–176; BP diastolic 65–82; PULSE 82–92; TEMP 36.4–36.8; O2SAT 92–95
[2017-01-13] MEDS ORDERED: OXYCODONE HCL IR 5 MG TAB (IMMEDIATE RELEASE) PO PRN (00:30)
[2017-01-13 05:48] LABS: MEAN CELL VOLUME 88.9 fL (80-100); MEAN CORPUSCULAR HEMOGLOBIN 29.2 pg (25-34); MEAN CORPUSCULAR HGB CONC 32.8 g/dl (32-36); MEAN PLATELET VOLUME 10.9 fL (7.4-10.4); PLATELET COUNT 191 K/uL (130-400); WHITE BLOOD COUNT 11.56 K/uL (4.8-10.8)
[2017-01-13 06:26] LABS: BUN/CREATININE RATIO 20.8 (10-20); CREATININE 1.6 mg/dl (0.60-1.40); POTASSIUM 3.9 mmol/L (3.5-5.1)
[2017-01-13 06:29] LABS: CALCIUM 8.8 mg/dl (8.5-10.1)
[2017-01-13] MEDS: SODIUM CHLORIDE 0.9% 1000ML 1,000 ML IV SCH ×3 (08:00→23:44)
[2017-01-13] MEDS: LEVETIRACETAM 500 MG TAB PO SCH ×2 (08:01→21:29)
[2017-01-13] MEDS: CHOLECALCIFEROL 1000 INTER.UNIT TAB PO SCH (08:02)
[2017-01-13] MEDS: PYRIDOXINE HCL 50 MG TAB PO SCH (08:02)
[2017-01-13] MEDS: PANTOprazole SOD 40 MG TAB PO SCH (08:02)
[2017-01-13] MEDS: ALLOPURINOL 300 MG TAB PO SCH (08:02)
[2017-01-13] MEDS: ATORVASTATIN 20 MG TAB PO SCH (08:03)
[2017-01-13] MEDS: AMLODIPINE BESYLATE 5 MG TAB PO SCH (08:03)
[2017-01-13] MEDS: ASPIRIN 81 MG ECTAB PO SCH (08:03)
[2017-01-13] MEDS: INSULIN GLARGINE SOLOSTAR 100 UNITS/ML 3 ML PEN SC SCH ×2 (08:05→21:33)
[2017-01-13] MEDS: HEPARIN SOD 5000 UNIT/0.5 ML CARP SQ SCH ×2 (08:06→21:34)
[2017-01-13] MEDS: INSULIN ASPART 100 UNITS/ML 3 ML PEN SC SCH ×4 (08:08→21:32)
--- NOTE | 2017-01-13 09:33 | Hospitalist Progress Note ---
Hospitalist Progress Note Date of Service January 13, 2017. (Chitra Bah PA-C) Subjective Pt evaluation today including: conversation w/ patient, conversation w/ family (Denise (phone)), physical exam, chart review, lab review, review of studies, review of inpatient medication list Patient seen and evaluated. Had run of SVT overnight that was not sustained. Had bladder pain overnight overnight with frequency and minimal urine output when voiding. Pain improved with pain medication. Consulted urology as patient has not been evaluated in the past and prostamegaly present on imaging. Also had a previous penile implant procedure. Per , patient does frequently take baths at home and soaks in the tub. She states he does not get UTIs frequently. She states that the only use the [place] catheters when needed. These catheters were more frequently used prior to admission as he was having a lot of weakness and incontinence. He continues to have some incontinence. Constitutional: No chills, No fever Eyes: No worsening of vision ENT: No sore throat, No trouble swallowing Respiratory: No cough, No shortness of breath Cardiovascular: No chest pain Abdomen: No constipation, No diarrhea, No nausea, No pain, No vomiting Musculoskeletal: No calf pain, No swelling Male : + incontinence, + urinary frequency Neurologic: + balance problems (H/O CVA), + weakness (generalized (improving ); L sided residual deficits) Skin: No rash (Chitra Bah, ASHLEYC) Medications Current Inpatient Medications Medications (Trade) Dose Ordered Sig/Ziyad Route Start Time Stop Time Status Last Admin Dose Admin Heparin Sodium (Porcine) 5000 unit 5,000 unit Q12 SQ 01/11/17 21:00 02/10/17 20:59 01/13/17 08:06 5,000 UNIT Sodium Chloride (Nss 1000ml) 1,000 ml @ 125 mls/hr Q8H IV 01/11/17 16:30 02/10/17 14:51 01/13/17 08:00 125 MLS/HR Acetaminophen (Tylenol Tab) 650 mg Q4H PRN PO 01/11/17 15:00 02/10/17 14:59 01/11/17 17:34 650 MG Al Hydrox/Mg Hydrox/Simethicone (Maalox Max Susp) 15 ml Q4H PRN PO 01/11/17 15:00 02/10/17 14:59 Magnesium Hydroxide (Milk Of Magnesia Susp) 30 ml Q12H PRN PO 01/11/17 15:00 02/10/17 14:59 Ondansetron HCl (Zofran Inj) 4 mg Q6H PRN IV 01/11/17 15:00 02/10/17 14:59 Nitroglycerin (Nitrostat Tab) 0.4 mg UD PRN SL 01/11/17 15:00 02/10/17 14:59 Polyethylene (Miralax Powder Packet) 17 gm DAILY PRN PO 01/11/17 15:00 02/10/17 14:59 Allopurinol (Zyloprim Tab) 300 mg DAILY PO 01/12/17 09:00 02/11/17 08:59 01/13/17 08:02 300 MG Amlodipine Besylate (Norvasc Tab) 10 mg DAILY PO 01/12/17 09:00 02/11/17 08:59 01/13/17 08:03 10 MG Aspirin (Ecotrin Tab) 81 mg DAILY PO 01/12/17 09:00 02/11/17 08:59 01/13/17 08:03 81 MG Atorvastatin Calcium (Lipitor Tab) 20 mg DAILY PO 01/12/17 09:00 02/11/17 08:59 01/13/17 08:03 20 MG Cholecalciferol (Vitamin D Tab) 1,000 inter.unit DAILY PO 01/12/17 09:00 02/11/17 08:59 01/13/17 08:02 1,000 INTER.UNIT Levetiracetam (Keppra Tab) 500 mg Q12 PO 01/11/17 21:00 02/10/17 20:59 01/13/17 08:01 500 MG Pantoprazole Sodium (Protonix Tab) 40 mg DAILY PO 01/12/17 09:00 02/11/17 08:59 01/13/17 08:02 40 MG Pyridoxine HCl (Vitamin B-6 Tab) 100 mg DAILY PO 01/12/17 09:00 02/11/17 08:59 01/13/17 08:02 100 MG Senna/Docusate Sodium (Senokot S Tab) 1 tab BID PRN PO 01/11/17 15:00 02/10/17 14:59 Hydralazine HCl 10 mg 10 mg Q6 PRN IV. 01/11/17 15:00 02/10/17 14:59 Ceftriaxone Sodium/Dextrose (Rocephin Inj/ Dextrose Add-[place] 50ML) 50 ml @ 100 mls/hr Q24H IV 01/12/17 14:00 01/20/17 13:59 01/12/17 12:37 100 MLS/HR Insulin Aspart (novoLOG ASPART) SLIDING SCALE G... ACHS SC 01/11/17 16:30 02/10/17 16:29 01/13/17 08:08 5 UNITS Glucose (Glucose 40% Gel) 15-30 GRAMS 15 GRAMS... UD PRN PO 01/11/17 15:15 02/10/17 15:14 Glucose (Glucose Chew Tab) 4-8 Tablets 4 Tabl... UD PRN PO 01/11/17 15:15 02/10/17 15:14 Dextrose (Dextrose 50% 50ML Syringe) 25-50ML OF 50% DW IV FOR... UD PRN IV 01/11/17 15:15 02/10/17 15:14 Glucagon (Glucagon Inj) 1 mg UD PRN SQ 01/11/17 15:15 02/10/17 15:14 Insulin Glargine (Lantus Solostar Pen) 20 unit BID SC 01/12/17 21:00 02/11/17 20:59 01/13/17 08:05 20 UNIT Oxycodone HCl (Roxicodone Immediate Rel Tab) 5 mg Q4H PRN PO 01/13/17 00:30 01/27/17 00:29 01/13/17 00:54 5 MG (Chitra Bah PA-C) Objective Vital Signs Date Time Temp Pulse Resp B/P Pulse Ox O2 Delivery O2 Flow Rate FiO2 01/13/17 07:41 36.5 90 16 149/65 93 Room Air 01/13/17 04:00 36.6 87 20 154/74 92 01/13/17 04:00 Room Air 01/13/17 00:00 Room Air 01/12/17 23:31 36.9 93 16 161/74 93 01/12/17 20:06 37.4 99 18 153/71 94 Room Air 01/12/17 20:00 Room Air 01/12/17 16:00 Room Air 01/12/17 15:32 37.1 91 20 136/70 94 Room Air 01/12/17 12:00 36.9 97 20 167/75 97 Room Air 01/12/17 12:00 Room Air (Chitra Bah PA-C) Physical Exam General Appearance: WD/WN, no apparent distress, + pertinent finding (flat affect; mask-like face) Eyes: sclerae normal ENT: hearing grossly normal Neck: supple, no JVD, trachea midline Respiratory/Chest: lungs clear, normal breath sounds, no respiratory distress, no accessory muscle use Cardiovascular: regular rate, rhythm, no gallop, no murmur Abdomen: normal bowel sounds, non tender, soft, + distended Extremities: no pedal edema, no calf tenderness Neurologic/Psychiatric: alert, oriented x 3 Skin: normal color (Chitra Bah PA-C) Laboratory Results Last 24 Hours Test 01/12/17 11:40 01/12/17 16:21 01/12/17 20:27 01/13/17 05:15 Bedside Glucose 347 mg/dl 318 mg/dl 319 mg/dl White Blood Count 11.56 K/uL Red Blood Count 3.60 M/uL Hemoglobin 10.5 g/dL Hematocrit 32.0 % Mean Corpuscular Volume 88.9 fL Mean Corpuscular Hemoglobin 29.2 pg Mean Corpuscular Hemoglobin Concent 32.8 g/dl RDW Standard Deviation 48.7 fL RDW Coefficient of Variation 15.0 % Platelet Count 191 K/uL Mean Platelet Volume 10.9 fL Sodium Level 143 mmol/L Potassium Level 3.9 mmol/L Chloride Level 112 mmol/L Carbon Dioxide Level 24 mmol/L Anion Gap 7.0 mmol/L Blood Urea Nitrogen 33 mg/dl Creatinine 1.60 mg/dl Est Creatinine Clear Calc Drug Dose 44.5 ml/min Estimated GFR () 48.8 Estimated GFR (Non- 42.1 BUN/Creatinine Ratio 20.8 Random Glucose 200 mg/dl Calcium Level 8.8 mg/dl Test 01/13/17 07:43 Bedside Glucose 191 mg/dl (Chitra Bah PA-C) Assessment and Plan 71 y/o male, with PMHx of CVA w/ residual left-sided weakness, T2DM, CKD stage III, HTN, seizure disorder, GERD, and gout, who presented to the ED because of persistent fevers/chills, weakness, and pain w/ urination. Sepsis 2/2 UTI: Klebsiella, E. Coli, Pseudomonas: - UCx (outpatient 01/10) - Pansensitive Klebsiella pneumoniae, pansensitive E. 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 implant malfunction/complication? is having pain along shaft of penis Elevated Troponins: - Troponins peaked at 0.810 (POC reading), thne 0.433 and now 0.228 - likely demand ischemia vs CARLITOS on CKD Acute Kidney Injury on CKD Stage III: Baseline Cr 1.6-2.0 - Cr is improved to approx. baseline at 1.6 today - Hold nephrotoxic agents and follow BMP Weakness: Likely from UTI superimposed on L residual deficits from prior CVA - PT/OT evaluations - recommendations for acute inpatient rehab HTN: - Hold Benazepril due to CARLITOS - Continue Norvasc 10 mg daily and Hydralazine 10 mg IV PRN T2DM: - Hold home regimen - Levemir 65 units SC HS and Novolog - Continues to have glucose in 300s and will tighten coverage as below: - Add Lantus 25 units SC BID with SSI with correction factor 25 and carb ratio 8 - will monitor sugars and possible place back on home regimen - BSG ACHS H/O CVA w/ Residual L-Sided Weakness: ASA 81 mg daily and Lipitor 20 mg daily Seizure Disorder: STABLE - Keppra 500 mg BID DVT Prophylaxis: Heparin 5000 units SC Q12H, PHIL/SCDs Code Status: FULL RESUSCITATION Dispo: From home, lives w/ family - PT/OT consulted - recommendations for possible inpatient rehab - patient would like [facility] - guest services attendant consulted (Chitra Bah, PAHiraC)
[2017-01-13] MEDS: DOCUSATE SODIUM/SENNA 50/8.6MG TAB PO PRN (10:54)
[2017-01-13] MEDS ORDERED: CEFEPIME CONSULT ACTIVE PRN ×2 (13:00)
[2017-01-13] MEDS: CEFEPIME IV 2,000 MG in DEXTROSE 5% 100ML 100 ML IV SCH (14:34)
--- NOTE | 2017-01-13 14:39 | Progress Note ---
Progress Note Date of Service January 13, 2017. Progress Note ID Consult Dictated #[id number] A/P: 1. UTI - polymicrobial -Would continue with cefepime for 10 days total, no po options -blood cultures negative, ok for picc line -thank you
[2017-01-13] MEDS: ACETAMINOPHEN 325 MG TAB PO PRN (16:00)
--- NOTE | 2017-01-13 16:52 | INFECT. DISEASE CONSULTATION ---
DATE OF CONSULTATION: 01/13/2017 HISTORY OF PRESENT ILLNESS: This is a 71-year-old gentleman who was admitted after he had fevers at home as high as 102 degrees. He also had generalized weakness. His is present on my examination and provides the majority of his history. She states that he had increased weakness over the weekend and then developed fevers. They were seen by their primary physician on 01/10/2017 and a urine culture was obtained. Results of that are growing pansensitive Klebsiella pneumonia, pansensitive E. coli and pseudomonas which is resistant to Cipro and Levaquin. He was given Cipro by his primary care physician. His gave him 1 dose and he had a fall at home and an episode of diarrhea. His symptoms continued and he was admitted to the hospital on 01/11/2017. Blood and urine cultures from 01/11/2017 are negative. His urinalysis in the ER had 10-30 WBCs but no bacteria. He has been afebrile since admission to the hospital. His initial white blood cell count was elevated at 26 but has improved to 11.5 today. His initial creatinine was also elevated at 2.6 and has improved to 1.6 today. A CAT scan of the abdomen and pelvis was done in the ER and shows an enlarged prostate at 6.3 cm with old implant in place. There were no other infectious concerns on CAT scan. On my examination today, he is out of bed to chair and states he is feeling better. He states his fevers and chills are resolved; however, he continues to complain of dysuria and burning sensation. His appetite is poor, but he denies any nausea, vomiting or any additional diarrhea. He denies any chest pain, cough, shortness of breath. All remaining review of systems are reviewed and are negative. PAST MEDICAL HISTORY: Significant for CVA with left-sided weakness, type 2 diabetes, chronic kidney disease, hypertension, seizure disorder, gout and GERD. SURGICAL HISTORY: Significant for CABG, back surgery and penile implant. FAMILY HISTORY: Noncontributory. SOCIAL HISTORY: Significant for a history of tobacco use. He denies any alcohol or drug use. He is and lives with his . ALLERGIES: HE HAS ALLERGIES TO ASPIRIN, CITRIC ACID, SODIUM BICARBONATE, AND TAPE. CURRENT MEDICATIONS: Include Lantus, cefepime, Roxicodone, allopurinol, Norvasc, Ecotrin, Lipitor, vitamin D, Protonix, vitamin B6, subcu heparin, Keppra, insulin, Tylenol, Maalox, Zofran, Senokot, MiraLax and hydralazine. PHYSICAL EXAMINATION: VITAL SIGNS: He is afebrile, pulse is 92, respiratory rate 16, blood pressure 165/74, oxygen saturation is 95% on room air. GENERAL: He is awake, alert and oriented. He is in no acute distress. HEENT: Mucous membranes are moist. Extraocular muscles are intact. HEART: Regular. LUNGS: Clear bilaterally. ABDOMEN: Soft, nontender, nondistended. There is no edema. SKIN: Without rash. LABORATORY STUDIES: CBC today reveals a white blood cell count of 11.5, hemoglobin 10.5, platelets are 191. Chemistry panel today reveals sodium of 143, potassium 3.9, chloride 112, bicarbonate 24, BUN 33, creatinine 1.6, glucose is 310. Micro is as reviewed previously. Imaging is as above. ASSESSMENT AND PLAN: Urinary tract infection. Unfortunately, there are no oral options to treat the pseudomonas. He can remain on his current dose of cefepime to complete a 10-day course. His blood cultures are negative and he certainly would be approved for a PICC line. Thank you for this consultation.
[2017-01-14] VITALS (10 sets, daily range): BP systolic 144–193; BP diastolic 69–81; PULSE 78–94; TEMP 36.6–37.3; O2SAT 94–98
[2017-01-14] MEDS ORDERED: INSULIN HUMAN REGULAR SC STA (00:36)
[2017-01-14] MEDS ORDERED: INSULIN ASPART 100 UNITS/ML 3 ML PEN SC STA (01:01)
[2017-01-14 08:16] LABS: HEMATOCRIT 32.7 % (42-52); MEAN CELL VOLUME 88.1 fL (80-100); MEAN CORPUSCULAR HEMOGLOBIN 28.6 pg (25-34); MEAN CORPUSCULAR HGB CONC 32.4 g/dl (32-36); MEAN PLATELET VOLUME 10.4 fL (7.4-10.4); PLATELET COUNT 213 K/uL (130-400); RED BLOOD COUNT 3.71 M/uL (4.7-6.1); WHITE BLOOD COUNT 8.81 K/uL (4.8-10.8)
[2017-01-14] MEDS: AMLODIPINE BESYLATE 5 MG TAB PO SCH (08:42)
[2017-01-14] MEDS: ASPIRIN 81 MG ECTAB PO SCH (08:42)
[2017-01-14] MEDS: ATORVASTATIN 20 MG TAB PO SCH (08:42)
[2017-01-14] MEDS: CHOLECALCIFEROL 1000 INTER.UNIT TAB PO SCH (08:43)
[2017-01-14] MEDS: PANTOprazole SOD 40 MG TAB PO SCH (08:43)
[2017-01-14] MEDS: PYRIDOXINE HCL 50 MG TAB PO SCH (08:43)
[2017-01-14 08:44] LABS: BUN/CREATININE RATIO 15.9 (10-20); CREATININE 1.4 mg/dl (0.60-1.40)
[2017-01-14] MEDS: LEVETIRACETAM 500 MG TAB PO SCH ×2 (08:44→20:55)
[2017-01-14] MEDS: ALLOPURINOL 300 MG TAB PO SCH (08:44)
[2017-01-14] MEDS: SODIUM CHLORIDE 0.9% 1000ML 1,000 ML IV SCH (08:46)
[2017-01-14] MEDS: INSULIN ASPART 100 UNITS/ML 3 ML PEN SC SCH ×4 (08:48→21:02)
[2017-01-14] MEDS: INSULIN GLARGINE SOLOSTAR 100 UNITS/ML 3 ML PEN SC SCH ×2 (08:49→21:01)
[2017-01-14] MEDS: HEPARIN SOD 5000 UNIT/0.5 ML CARP SQ SCH ×2 (08:50→21:02)
--- NOTE | 2017-01-14 12:27 | Urology Consultation ---
History General Date of Service: January 14, 2017. Primary Care Physician: Tamiko Maier M.D. Pt seen a urologist before?: Yes (ED) History of Present Illness 71 year old male admitted for UTI. Urology is consulted for enlarged prostate and bladder wall thickening seen upon CT scan- images reviewed- penile implant also noted along with reservoir. Pt recently diagnosed with multiple organisms UTI klebsiella, Ecoli and pseudomonas-currently treated with IV cefipime- followed by ID. Reports he has had significant burning with urination for past 2 weeks. Regarding prostate symptoms - baseline symptoms prior to UTI were not overly bothersome. He did have urinary frequency and urgency- he attributed this to his diabetes. Denies Nocturia, incontinence, weak stream or inability to empty. During this hospitalization his PVR was normal at 84 ml. Current blood and urine cultures show no growth. Remained afebrile throughout hospitalization. Reported fevers as high as 102F at home. White count and creatinine initially elevated but have normalized. Creatinine was as high as 2.6 He has seen urology ( Dr. Brown) in the past for his penile implant for ED. Denies hx of BPH. Imaging Imaging: CT Laboratory Last 24 Hours Test 01/13/17 16:34 01/13/17 20:34 01/13/17 23:33 01/14/17 07:38 Bedside Glucose 316 mg/dl 329 mg/dl 223 mg/dl White Blood Count 8.81 K/uL Red Blood Count 3.71 M/uL Hemoglobin 10.6 g/dL Hematocrit 32.7 % Mean Corpuscular Volume 88.1 fL Mean Corpuscular Hemoglobin 28.6 pg Mean Corpuscular Hemoglobin Concent 32.4 g/dl RDW Standard Deviation 48.0 fL RDW Coefficient of Variation 14.8 % Platelet Count 213 K/uL Mean Platelet Volume 10.4 fL Sodium Level 145 mmol/L Potassium Level 4.0 mmol/L Chloride Level 113 mmol/L Carbon Dioxide Level 22 mmol/L Anion Gap 10.0 mmol/L Blood Urea Nitrogen 22 mg/dl Creatinine 1.40 mg/dl Est Creatinine Clear Calc Drug Dose 50.9 ml/min Estimated GFR () 57.4 Estimated GFR (Non- 49.5 BUN/Creatinine Ratio 15.9 Random Glucose 203 mg/dl Calcium Level 9.0 mg/dl Test 01/14/17 08:10 Bedside Glucose 213 mg/dl Current Inpatient Medications Medications (Trade) Dose Ordered Sig/Ziyad Route Start Time Stop Time Status Last Admin Dose Admin Heparin Sodium (Porcine) 5000 unit 5,000 unit Q12 SQ 01/11/17 21:00 02/10/17 20:59 01/14/17 08:50 5,000 UNIT Sodium Chloride (Nss 1000ml) 1,000 ml @ 125 mls/hr Q8H IV 01/11/17 16:30 02/10/17 14:51 01/14/17 08:46 125 MLS/HR Acetaminophen (Tylenol Tab) 650 mg Q4H PRN PO 01/11/17 15:00 02/10/17 14:59 01/13/17 16:00 650 MG Al Hydrox/Mg Hydrox/Simethicone (Maalox Max Susp) 15 ml Q4H PRN PO 01/11/17 15:00 02/10/17 14:59 Magnesium Hydroxide (Milk Of Magnesia Susp) 30 ml Q12H PRN PO 01/11/17 15:00 02/10/17 14:59 Ondansetron HCl (Zofran Inj) 4 mg Q6H PRN IV 01/11/17 15:00 02/10/17 14:59 Nitroglycerin (Nitrostat Tab) 0.4 mg UD PRN SL 01/11/17 15:00 02/10/17 14:59 Polyethylene (Miralax Powder Packet) 17 gm DAILY PRN PO 01/11/17 15:00 02/10/17 14:59 01/13/17 10:54 17 GM Allopurinol (Zyloprim Tab) 300 mg DAILY PO 01/12/17 09:00 02/11/17 08:59 01/14/17 08:44 300 MG Amlodipine Besylate (Norvasc Tab) 10 mg DAILY PO 01/12/17 09:00 02/11/17 08:59 01/14/17 08:42 10 MG Aspirin (Ecotrin Tab) 81 mg DAILY PO 01/12/17 09:00 02/11/17 08:59 01/14/17 08:42 81 MG Atorvastatin Calcium (Lipitor Tab) 20 mg DAILY PO 01/12/17 09:00 02/11/17 08:59 01/14/17 08:42 20 MG Cholecalciferol (Vitamin D Tab) 1,000 inter.unit DAILY PO 01/12/17 09:00 02/11/17 08:59 01/14/17 08:43 1,000 INTER.UNIT Levetiracetam (Keppra Tab) 500 mg Q12 PO 01/11/17 21:00 02/10/17 20:59 01/14/17 08:44 500 MG Pantoprazole Sodium (Protonix Tab) 40 mg DAILY PO 01/12/17 09:00 02/11/17 08:59 01/14/17 08:43 40 MG Pyridoxine HCl (Vitamin B-6 Tab) 100 mg DAILY PO 01/12/17 09:00 02/11/17 08:59 01/14/17 08:43 100 MG Senna/Docusate Sodium (Senokot S Tab) 1 tab BID PRN PO 01/11/17 15:00 02/10/17 14:59 01/13/17 10:54 1 TAB Hydralazine HCl (HydrALAZINE INJ) 10 mg Q6 PRN IV. 01/11/17 15:00 02/10/17 14:59 Insulin Aspart (novoLOG ASPART) SLIDING SCALE G... ACHS SC 01/11/17 16:30 02/10/17 16:29 01/14/17 08:48 8 UNITS Glucose (Glucose 40% Gel) 15-30 GRAMS 15 GRAMS... UD PRN PO 01/11/17 15:15 02/10/17 15:14 Glucose (Glucose Chew Tab) 4-8 Tablets 4 Tabl... UD PRN PO 01/11/17 15:15 02/10/17 15:14 Dextrose (Dextrose 50% 50ML Syringe) 25-50ML OF 50% DW IV FOR... UD PRN IV 01/11/17 15:15 02/10/17 15:14 Glucagon (Glucagon Inj) 1 mg UD PRN SQ 01/11/17 15:15 02/10/17 15:14 Oxycodone HCl 5 mg 5 mg Q4H PRN PO 01/13/17 00:30 01/27/17 00:29 01/13/17 00:54 5 MG Cefepime HCl/ Dextrose (Maxipime IV/D5 100ml) 112.5 ml @ 200 mls/hr Q24H IV 01/13/17 13:00 01/23/17 12:59 01/13/17 14:34 200 MLS/HR Cefepime HCl (Consult) 1 ea UD PRN N/A 01/13/17 13:00 02/12/17 12:59 Insulin Glargine (Lantus Solostar Pen) 30 unit BID SC 01/14/17 21:00 02/13/17 20:59 UNV Labs were reviewed and are within normal limits unless listed below. Labs are available in the chart and at [facility] Problem List Medical Problems: (1) Chronic kidney disease Status: Acute (2) Contusion of ribs Status: Acute (3) Sepsis Status: Acute (4) UTI (urinary tract infection) Status: Acute (5) Weakness Status: Acute Past History BPH, CVA/TIA/stroke, diabetes, GERD, gout, hypertension, renal disease, seizure Past Surgical History: coronary bypass surgery, orthopedic surgery (back surgery), other (penile implant) Family History Diabetes mellitus Hypertension Kidney disease Social History Hx Tobacco Use In Past Year?: No Smoking: quit greater than 1 year Marital status: Housing status: lives with family Occupation status: retired Immunizations History of Influenza Vaccine: Yes History of Tetanus Vaccine?: Yes History of Pneumococcal: Yes Pneumococcal Date: Mar 17, 2008 History of Hepatitis B Vaccine: Unknown History of MDRO No Allergies Coded Allergies: Aspirin (Verified Allergy, Severe, SWOLLEN TONGUE, 01/11/17) Citric Acid (Verified Allergy, Severe, SWOLLEN TONGUE, 01/11/17) Sodium Bicarbonate (Verified Allergy, Severe, SWOLLEN TONGUE, 01/11/17) Adhesives (Verified Allergy, Unknown, SKIN BLISTERS AND TEARING, 01/11/17) Medications Home Medications: Home Meds and Scripts Medications Dose Route/Sig Max Daily Dose Days Date Category Aspirin 81 (Aspirin) 81 Mg Tab 81 Mg PO DAILY 01/11/17 Reported Lotensin (Benazepril HCl) 40 Mg Tab 40 Mg PO DAILY 01/11/17 Reported Novolog (Insulin Aspart) 100 Units/Ml Inj 18 Unit SQ WM 01/11/17 Reported Levemir (Insulin Detemir) 100 Units/Ml Inj 65 Units SQ HS 01/11/17 Reported Vitamin D3 (Cholecalciferol) 1,000 Unit Tab 5,000 Units PO DAILY 90 02/07/16 Reported Zyloprim (Allopurinol) 300 Mg Tab 300 Mg PO DAILY 02/07/16 Reported Colchicine 0.6 Mg Tab 0.6 Mg PO DAILY 02/07/16 Reported Vitamin B-6 (Pyridoxine Hcl) 50 Mg Tab 100 Mg PO DAILY 06/21/15 Reported Nitrostat (Nitroglycerin) 0.4 Mg Tab 1 Tab SL UD 06/21/15 Reported Keppra (Levetiracetam) 500 Mg Tab 500 Mg PO Q12 05/22/14 Reported Lipitor (Atorvastatin Calcium) 10 Mg Tab 20 Mg PO DAILY 05/22/14 Reported Norvasc (Amlodipine Besylate) 5 Mg Tab 10 Mg PO DAILY 05/22/14 Reported Senna S (Sennosides-Docusate Sodium) 1 Tab Tab 1 Tablet PO AMPM 10/18/13 Reported Protonix (Pantoprazole) 40 Mg Tab 40 Mg PO DAILY 10/18/13 Reported Inpatient Medications: Current Inpatient Medications Medications (Trade) Dose Ordered Sig/Ziyad Route Start Time Stop Time Status Last Admin Dose Admin Heparin Sodium (Porcine) 5000 unit 5,000 unit Q12 SQ 01/11/17 21:00 02/10/17 20:59 01/14/17 08:50 5,000 UNIT Sodium Chloride (Nss 1000ml) 1,000 ml @ 125 mls/hr Q8H IV 01/11/17 16:30 02/10/17 14:51 01/14/17 08:46 125 MLS/HR Acetaminophen (Tylenol Tab) 650 mg Q4H PRN PO 01/11/17 15:00 02/10/17 14:59 01/13/17 16:00 650 MG Al Hydrox/Mg Hydrox/Simethicone (Maalox Max Susp) 15 ml Q4H PRN PO 01/11/17 15:00 02/10/17 14:59 Magnesium Hydroxide (Milk Of Magnesia Susp) 30 ml Q12H PRN PO 01/11/17 15:00 02/10/17 14:59 Ondansetron HCl (Zofran Inj) 4 mg Q6H PRN IV 01/11/17 15:00 02/10/17 14:59 Nitroglycerin (Nitrostat Tab) 0.4 mg UD PRN SL 01/11/17 15:00 02/10/17 14:59 Polyethylene (Miralax Powder Packet) 17 gm DAILY PRN PO 01/11/17 15:00 02/10/17 14:59 01/13/17 10:54 17 GM Allopurinol (Zyloprim Tab) 300 mg DAILY PO 01/12/17 09:00 02/11/17 08:59 01/14/17 08:44 300 MG Amlodipine Besylate (Norvasc Tab) 10 mg DAILY PO 01/12/17 09:00 02/11/17 08:59 01/14/17 08:42 10 MG Aspirin (Ecotrin Tab) 81 mg DAILY PO 01/12/17 09:00 02/11/17 08:59 01/14/17 08:42 81 MG Atorvastatin Calcium (Lipitor Tab) 20 mg DAILY PO 01/12/17 09:00 02/11/17 08:59 01/14/17 08:42 20 MG Cholecalciferol (Vitamin D Tab) 1,000 inter.unit DAILY PO 01/12/17 09:00 02/11/17 08:59 01/14/17 08:43 1,000 INTER.UNIT Levetiracetam (Keppra Tab) 500 mg Q12 PO 01/11/17 21:00 02/10/17 20:59 01/14/17 08:44 500 MG Pantoprazole Sodium (Protonix Tab) 40 mg DAILY PO 01/12/17 09:00 02/11/17 08:59 01/14/17 08:43 40 MG Pyridoxine HCl (Vitamin B-6 Tab) 100 mg DAILY PO 01/12/17 09:00 02/11/17 08:59 01/14/17 08:43 100 MG Senna/Docusate Sodium (Senokot S Tab) 1 tab BID PRN PO 01/11/17 15:00 02/10/17 14:59 01/13/17 10:54 1 TAB Hydralazine HCl (HydrALAZINE INJ) 10 mg Q6 PRN IV. 01/11/17 15:00 02/10/17 14:59 Insulin Aspart (novoLOG ASPART) SLIDING SCALE G... ACHS SC 01/11/17 16:30 02/10/17 16:29 01/14/17 08:48 8 UNITS Glucose (Glucose 40% Gel) 15-30 GRAMS 15 GRAMS... UD PRN PO 01/11/17 15:15 02/10/17 15:14 Glucose (Glucose Chew Tab) 4-8 Tablets 4 Tabl... UD PRN PO 01/11/17 15:15 02/10/17 15:14 Dextrose (Dextrose 50% 50ML Syringe) 25-50ML OF 50% DW IV FOR... UD PRN IV 01/11/17 15:15 02/10/17 15:14 Glucagon (Glucagon Inj) 1 mg UD PRN SQ 01/11/17 15:15 02/10/17 15:14 Oxycodone HCl 5 mg 5 mg Q4H PRN PO 01/13/17 00:30 01/27/17 00:29 01/13/17 00:54 5 MG Cefepime HCl/ Dextrose (Maxipime IV/D5 100ml) 112.5 ml @ 200 mls/hr Q24H IV 01/13/17 13:00 01/23/17 12:59 01/13/17 14:34 200 MLS/HR Cefepime HCl (Consult) 1 ea UD PRN N/A 01/13/17 13:00 02/12/17 12:59 Insulin Glargine (Lantus Solostar Pen) 30 unit BID SC 01/14/17 21:00 02/13/17 20:59 UNV Review of Systems Review of Systems Constitutional: No chills, No fever Eyes: No blurred vision Neurological: No dizzy Endocrine: No excessive thirst Gastrointestinal: No abdominal pain Cardiovascular: No chest pain, No heart murmur Respiratory: No shortness of breath Blood / Lymphatic: No bleed easily Male : + painful urination, + see HPI Physical Exam Vital Signs: Vital Signs Past 12 Hours Date Time Temp Pulse Resp B/P Pulse Ox O2 Delivery O2 Flow Rate FiO2 01/14/17 11:48 36.8 93 20 175/77 96 01/14/17 08:00 Room Air 01/14/17 07:43 36.8 89 18 178/80 94 Room Air 01/14/17 04:00 Room Air 01/14/17 04:00 36.6 85 20 161/81 97 Room Air 01/14/17 00:30 167/76 Physical Exam: General Appearance: WD/WN, no apparent distress ENT: hearing grossly normal Neck: no JVD Respiratory/Chest: no respiratory distress, no accessory muscle use Extremities: normal inspection Neurologic/Psychiatric: alert, normal mood/affect Skin: normal color, warm/dry Assessment & Plan Assessment & Plan Imaging: CT BPH His baseline symptoms were not overly bothersome and his PVR was reasonable. However, given he has UTI and prostate appears enlarged on CT will treat his prostatomegaly with tamsulosin and finasteride. Discussed mechanism of action and side effects with pt. He is very bothered by dysuria- start pt on pyridium for a short course- BID prn for 5-7 days. (creatinine is now normal) Nothing further needed from an acute standpoint. We will follow him as outpt- schedule for cysto once his UTI has resolved ( at least 6 weeks out). Thanks for the consult. Please recall prn.
[2017-01-14] MEDS ORDERED: INSULIN GLARGINE SOLOSTAR 100 UNITS/ML 3 ML PEN SC ONE (12:30)
--- NOTE | 2017-01-14 12:55 | Hospitalist Progress Note ---
Hospitalist Progress Note Date of Service January 14, 2017. (Chitra Bah PA-C) Subjective Pt evaluation today including: conversation w/ patient, conversation w/ family , physical exam, chart review, lab review, review of studies, review of inpatient medication list Patient seen and evaluated. No acute events overnight. Continues to have painful urination and frequency. Feeling overall improved. Participating in PT/OT that continues to recommend rehab. Patient and going back and forth about rehab. Discussed with both and now in agreement to pursue [facility]. Consented for PICC line placement. Verbalizes no new complaints. Constitutional: No chills, No fever Respiratory: No shortness of breath Cardiovascular: No chest pain Abdomen: No constipation, No diarrhea, No nausea, No pain, No vomiting Musculoskeletal: No calf pain Male : + dysuria, + incontinence, + urinary frequency, No hematuria Neurologic: + balance problems Skin: No rash (Chitra Bah PA-C) Medications Current Inpatient Medications Medications (Trade) Dose Ordered Sig/Ziyad Route Start Time Stop Time Status Last Admin Dose Admin Heparin Sodium (Porcine) 5000 unit 5,000 unit Q12 SQ 01/11/17 21:00 02/10/17 20:59 01/14/17 08:50 5,000 UNIT Sodium Chloride (Nss 1000ml) 1,000 ml @ 125 mls/hr Q8H IV 01/11/17 16:30 02/10/17 14:51 01/14/17 08:46 125 MLS/HR Acetaminophen (Tylenol Tab) 650 mg Q4H PRN PO 01/11/17 15:00 02/10/17 14:59 01/13/17 16:00 650 MG Al Hydrox/Mg Hydrox/Simethicone (Maalox Max Susp) 15 ml Q4H PRN PO 01/11/17 15:00 02/10/17 14:59 Magnesium Hydroxide (Milk Of Magnesia Susp) 30 ml Q12H PRN PO 01/11/17 15:00 02/10/17 14:59 Ondansetron HCl (Zofran Inj) 4 mg Q6H PRN IV 01/11/17 15:00 02/10/17 14:59 Nitroglycerin (Nitrostat Tab) 0.4 mg UD PRN SL 01/11/17 15:00 02/10/17 14:59 Polyethylene (Miralax Powder Packet) 17 gm DAILY PRN PO 01/11/17 15:00 02/10/17 14:59 01/13/17 10:54 17 GM Allopurinol (Zyloprim Tab) 300 mg DAILY PO 01/12/17 09:00 02/11/17 08:59 01/14/17 08:44 300 MG Amlodipine Besylate (Norvasc Tab) 10 mg DAILY PO 01/12/17 09:00 02/11/17 08:59 01/14/17 08:42 10 MG Aspirin (Ecotrin Tab) 81 mg DAILY PO 01/12/17 09:00 02/11/17 08:59 01/14/17 08:42 81 MG Atorvastatin Calcium (Lipitor Tab) 20 mg DAILY PO 01/12/17 09:00 02/11/17 08:59 01/14/17 08:42 20 MG Cholecalciferol (Vitamin D Tab) 1,000 inter.unit DAILY PO 01/12/17 09:00 02/11/17 08:59 01/14/17 08:43 1,000 INTER.UNIT Levetiracetam (Keppra Tab) 500 mg Q12 PO 01/11/17 21:00 02/10/17 20:59 01/14/17 08:44 500 MG Pantoprazole Sodium (Protonix Tab) 40 mg DAILY PO 01/12/17 09:00 02/11/17 08:59 01/14/17 08:43 40 MG Pyridoxine HCl (Vitamin B-6 Tab) 100 mg DAILY PO 01/12/17 09:00 02/11/17 08:59 01/14/17 08:43 100 MG Senna/Docusate Sodium (Senokot S Tab) 1 tab BID PRN PO 01/11/17 15:00 02/10/17 14:59 01/13/17 10:54 1 TAB Hydralazine HCl (HydrALAZINE INJ) 10 mg Q6 PRN IV. 01/11/17 15:00 02/10/17 14:59 Insulin Aspart (novoLOG ASPART) SLIDING SCALE G... ACHS SC 01/11/17 16:30 02/10/17 16:29 01/14/17 08:48 8 UNITS Glucose (Glucose 40% Gel) 15-30 GRAMS 15 GRAMS... UD PRN PO 01/11/17 15:15 02/10/17 15:14 Glucose (Glucose Chew Tab) 4-8 Tablets 4 Tabl... UD PRN PO 01/11/17 15:15 02/10/17 15:14 Dextrose (Dextrose 50% 50ML Syringe) 25-50ML OF 50% DW IV FOR... UD PRN IV 01/11/17 15:15 02/10/17 15:14 Glucagon (Glucagon Inj) 1 mg UD PRN SQ 01/11/17 15:15 02/10/17 15:14 Oxycodone HCl 5 mg 5 mg Q4H PRN PO 01/13/17 00:30 01/27/17 00:29 01/13/17 00:54 5 MG Cefepime HCl/ Dextrose (Maxipime IV/D5 100ml) 112.5 ml @ 200 mls/hr Q24H IV 01/13/17 13:00 01/23/17 12:59 01/13/17 14:34 200 MLS/HR Cefepime HCl (Consult) 1 ea UD PRN N/A 01/13/17 13:00 02/12/17 12:59 Insulin Glargine (Lantus Solostar Pen) 30 unit BID SC 01/14/17 21:00 02/13/17 20:59 Tamsulosin HCl (Flomax Cap) 0.4 mg HS PO 01/14/17 21:00 02/13/17 20:59 UNV Finasteride (Proscar Tab) 5 mg HS PO 01/14/17 21:00 02/13/17 20:59 UNV Phenazopyridine HCl (Pyridium Tab) 200 mg BID PRN PO 01/14/17 12:30 02/13/17 12:29 UNV (Chitra Bah PA-C) Objective Vital Signs Date Time Temp Pulse Resp B/P Pulse Ox O2 Delivery O2 Flow Rate FiO2 01/14/17 11:48 36.8 93 20 175/77 96 01/14/17 08:00 Room Air 01/14/17 07:43 36.8 89 18 178/80 94 Room Air 01/14/17 04:00 Room Air 01/14/17 04:00 36.6 85 20 161/81 97 Room Air 01/14/17 00:30 167/76 01/14/17 00:05 36.8 83 18 170/78 94 Room Air 01/14/17 00:00 Room Air 01/13/17 20:39 36.4 82 18 165/72 95 Room Air 01/13/17 20:00 95 Room Air 01/13/17 17:54 36.7 82 20 166/75 93 Room Air 01/13/17 16:00 95 Room Air 01/13/17 15:38 89 95 01/13/17 15:24 36.8 89 22 176/82 95 Room Air (Chitra Bah PA-C) Physical Exam General Appearance: WD/WN, no apparent distress Eyes: sclerae normal ENT: hearing grossly normal Neck: supple, no JVD, trachea midline Respiratory/Chest: lungs clear, normal breath sounds, no respiratory distress, no accessory muscle use Cardiovascular: regular rate, rhythm, no gallop, no murmur Abdomen: normal bowel sounds, non tender, soft Extremities: no pedal edema, no calf tenderness Neurologic/Psychiatric: alert, oriented x 3, + pertinent finding (L sided weakness (chronic 2/2 CVA)) Skin: normal color, warm/dry (Chitra Bah, PA-C) Laboratory Results Last 24 Hours Test 01/13/17 16:34 01/13/17 20:34 01/13/17 23:33 01/14/17 07:38 Bedside Glucose 316 mg/dl 329 mg/dl 223 mg/dl White Blood Count 8.81 K/uL Red Blood Count 3.71 M/uL Hemoglobin 10.6 g/dL Hematocrit 32.7 % Mean Corpuscular Volume 88.1 fL Mean Corpuscular Hemoglobin 28.6 pg Mean Corpuscular Hemoglobin Concent 32.4 g/dl RDW Standard Deviation 48.0 fL RDW Coefficient of Variation 14.8 % Platelet Count 213 K/uL Mean Platelet Volume 10.4 fL Sodium Level 145 mmol/L Potassium Level 4.0 mmol/L Chloride Level 113 mmol/L Carbon Dioxide Level 22 mmol/L Anion Gap 10.0 mmol/L Blood Urea Nitrogen 22 mg/dl Creatinine 1.40 mg/dl Est Creatinine Clear Calc Drug Dose 50.9 ml/min Estimated GFR () 57.4 Estimated GFR (Non- 49.5 BUN/Creatinine Ratio 15.9 Random Glucose 203 mg/dl Calcium Level 9.0 mg/dl Test 01/14/17 08:10 01/14/17 12:17 Bedside Glucose 213 mg/dl 256 mg/dl (Chitra Bah, PAGianni) Assessment and Plan 71 y/o male, with PMHx of CVA w/ residual left-sided weakness, T2DM, CKD stage III, HTN, seizure disorder, GERD, and gout, who presented to the ED because of persistent fevers/chills, weakness, and pain w/ urination. Sepsis (RESOLVED) / UTI: Klebsiella, E. Coli, Pseudomonas: - UCx (outpatient 01/10) - Pansensitive Klebsiella pneumoniae, pansensitive E. coli, and pseudomonas aeruginosa (resistant/intermediate to cipro and levaquin) - Abd/Pelvis CT - prostamegaly and mild bladder wall thickening - presence of reservoir in prostate - patient has H/O inflatable implant for ED - Cefepime 2 g IV daily - DAY #10/15 - Bladder scan and straight cath as necessary - Urology consultation placed - recommendations reviewed -- Flomax 0.4 mg daily, Proscar 5 mg daily, and Pyridium 200 mg BID PRN -- Outpatient cystoscopy x 6 weeks (at least) Elevated Troponins: - Troponins peaked at 0.810 (POC reading), then 0.433 and now 0.228 - likely demand ischemia vs CARLITOS on CKD Acute Kidney Injury on CKD Stage III: Baseline Cr 1.6-2.0 - Cr is improved to approx. baseline at 1.6 today - Hold nephrotoxic agents and follow BMP Weakness: Likely from UTI superimposed on L residual deficits from prior CVA - PT/OT evaluations - recommendations for acute inpatient rehab HTN: - Will reinstitute Benazepril as CARLITOS resolved - Continue Norvasc 10 mg daily and Hydralazine 10 mg IV PRN T2DM: - Hold home regimen - Levemir 65 units SC HS and Novolog - Continues to have glucose in 300s and will tighten coverage as below: - Add Lantus 30 units SC BID with SSI with correction factor 25 and carb ratio 8 - will monitor sugars and possible place back on home regimen - BSG ACHS H/O CVA w/ Residual L-Sided Weakness: ASA 81 mg daily and Lipitor 20 mg daily Seizure Disorder: STABLE - Keppra 500 mg BID DVT Prophylaxis: Heparin 5000 units SC Q12H, PHIL/SCDs Code Status: FULL RESUSCITATION Dispo: [facility] - once PICC placed and authorization obtained patient would be optimal for D/C Continued [facility] stay due to: multiple IV medications needed Discharge planning: rehab hospital (Chitra Bah, PAHiraC)
[2017-01-14] MEDS: CEFEPIME IV 2,000 MG in DEXTROSE 5% 100ML 100 ML IV SCH (13:03)
[2017-01-14] MEDS ORDERED: LISINOPRIL 20 MG TAB PO STA (16:42)
[2017-01-14] MEDS: FINASTERIDE 5 MG TAB PO SCH (20:55)
[2017-01-14] MEDS: TAMSULOSIN HCL 0.4 MG CAP PO SCH (20:55)
[2017-01-15 04:41] VITALS: BP 171/81; PULSE 79; TEMP 36.8; O2SAT 96
[2017-01-15 08:30] VITALS: BP 175/72; PULSE 81; TEMP 37; O2SAT 94
[2017-01-15] MEDS: ASPIRIN 81 MG ECTAB PO SCH (08:55)
[2017-01-15] MEDS: ATORVASTATIN 20 MG TAB PO SCH (08:56)
[2017-01-15] MEDS: PYRIDOXINE HCL 50 MG TAB PO SCH (08:56)
[2017-01-15] MEDS: CHOLECALCIFEROL 1000 INTER.UNIT TAB PO SCH (08:56)
[2017-01-15] MEDS: AMLODIPINE BESYLATE 5 MG TAB PO SCH (08:56)
[2017-01-15] MEDS: LEVETIRACETAM 500 MG TAB PO SCH ×2 (08:56→20:48)
[2017-01-15] MEDS: ALLOPURINOL 300 MG TAB PO SCH (08:56)
[2017-01-15] MEDS: PANTOprazole SOD 40 MG TAB PO SCH (08:56)
[2017-01-15] MEDS: PHENAZOPYRIDINE HCL 200 MG TAB PO PRN (08:57)
[2017-01-15] MEDS: LISINOPRIL 20 MG TAB PO SCH (08:58)
[2017-01-15] MEDS: DOCUSATE SODIUM/SENNA 50/8.6MG TAB PO PRN (09:01)
[2017-01-15] MEDS: INSULIN ASPART 100 UNITS/ML 3 ML PEN SC SCH ×4 (09:08→20:44)
[2017-01-15] MEDS: INSULIN GLARGINE SOLOSTAR 100 UNITS/ML 3 ML PEN SC SCH ×2 (09:09→20:46)
[2017-01-15] MEDS: HEPARIN SOD 5000 UNIT/0.5 ML CARP SQ SCH ×2 (09:10→20:46)
[2017-01-15 11:37] VITALS: BP 162/77; PULSE 91; TEMP 36.5; O2SAT 97
[2017-01-15] MEDS: CEFEPIME IV 2,000 MG in DEXTROSE 5% 100ML 100 ML IV SCH (13:22)
[2017-01-15 15:35] VITALS: BP 125/83; PULSE 101; TEMP 36.3; O2SAT 95
--- NOTE | 2017-01-15 15:55 | Hospitalist Progress Note ---
Hospitalist Progress Note Date of Service January 15, 2017. Subjective Pt evaluation today including: conversation w/ patient, physical exam, chart review Doing well Medications Medications (Trade) Dose Ordered Sig/Ziyad Route Start Time Stop Time Status Last Admin Dose Admin Insulin Glargine (Lantus Solostar Pen) 30 unit BID SC 01/14/17 21:00 02/13/17 20:59 01/15/17 09:09 30 UNIT Tamsulosin HCl (Flomax Cap) 0.4 mg HS PO 01/14/17 21:00 02/13/17 20:59 01/14/17 20:55 0.4 MG Finasteride (Proscar Tab) 5 mg HS PO 01/14/17 21:00 02/13/17 20:59 01/14/17 20:55 5 MG Lisinopril (Zestril Tab) 20 mg QAM PO 01/15/17 09:00 02/14/17 08:59 01/15/17 08:58 20 MG Lisinopril (Zestril Tab) 20 mg NOW STAT PO 01/14/17 16:42 01/14/17 16:59 DC 01/14/17 17:45 20 MG Objective Vital Signs Date Time Temp Pulse Resp B/P Pulse Ox O2 Delivery O2 Flow Rate FiO2 01/15/17 15:35 36.3 101 18 125/83 95 01/15/17 12:00 Room Air 01/15/17 11:37 36.5 91 18 162/77 97 01/15/17 08:30 37.0 81 18 175/72 94 01/15/17 08:00 Room Air 01/15/17 04:41 36.8 79 20 171/81 96 Room Air 01/15/17 04:00 Room Air 01/15/17 00:00 Room Air 01/14/17 23:33 36.9 81 20 183/69 95 Room Air 01/14/17 20:00 Room Air 01/14/17 19:25 36.9 94 20 193/71 94 Room Air 01/14/17 16:00 Room Air Physical Exam General Appearance: WD/WN Eyes: normal inspection ENT: normal ENT inspection Neck: supple Respiratory/Chest: chest non-tender, lungs clear Cardiovascular: regular rate, rhythm, no edema Abdomen: normal bowel sounds, non tender, soft Extremities: normal range of motion 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 Sepsis (RESOLVED) 2/ UTI: Klebsiella, E. Coli, Pseudomonas: - UCx (outpatient 01/10) - Pansensitive Klebsiella pneumoniae, pansensitive E. coli, and pseudomonas aeruginosa (resistant/intermediate to cipro and levaquin) - Abd/Pelvis CT - prostamegaly and mild bladder wall thickening - presence of reservoir in prostate - patient has H/O inflatable implant for ED - Cefepime 2 g IV daily - DAY #3 - Bladder scan and straight cath as necessary - Urology consultation placed - recommendations reviewed -- Flomax 0.4 mg daily, Proscar 5 mg daily, and Pyridium 200 mg BID PRN -- Outpatient cystoscopy x 6 weeks (at least) - PICC line placed yesterday. Elevated Troponins: - Troponins peaked at 0.810 (POC reading), then 0.433 and now 0.228 - likely demand ischemia vs CARLITOS on CKD Acute Kidney Injury on CKD Stage III: Baseline Cr 1.6-2.0 - Cr is improved to approx. baseline at 1.6 today - Hold nephrotoxic agents and follow BMP Weakness: Likely from UTI superimposed on L residual deficits from prior CVA - PT/OT evaluations - recommendations for acute inpatient rehab HTN: - Lisinopril restarted y.day. BP stable. - Continue Norvasc 10 mg daily and Hydralazine 10 mg IV PRN T2DM: - Hold home regimen - Levemir 65 units SC HS and Novolog - Continues to have glucose in 300s and will tighten coverage as below: - Add Lantus 30 units SC BID with SSI with correction factor 25 and carb ratio 8 - will monitor sugars and possible place back on home regimen - BSG ACHS H/O CVA w/ Residual L-Sided Weakness: ASA 81 mg daily and Lipitor 20 mg daily Seizure Disorder: STABLE - Keppra 500 mg BID DVT Prophylaxis: Heparin 5000 units SC Q12H, PHIL/SCDs Code Status: FULL RESUSCITATION
[2017-01-15 20:15] VITALS: BP 171/70; PULSE 92; TEMP 36.7; O2SAT 95
[2017-01-15] MEDS: FINASTERIDE 5 MG TAB PO SCH (20:48)
[2017-01-15] MEDS: TAMSULOSIN HCL 0.4 MG CAP PO SCH (20:48)
[2017-01-15 23:57] VITALS: BP 188/70; PULSE 74; TEMP 36.9; O2SAT 95
[2017-01-16] MEDS: HydrALAZINE HCL 20 MG/ML VIAL IV. PRN (00:02)
[2017-01-16 05:08] VITALS: BP 188/68; PULSE 95; TEMP 36.1; O2SAT 98
[2017-01-16 06:37] LABS: CREATININE 1.5 mg/dl (0.60-1.40)
[2017-01-16 07:24] VITALS: BP 166/80; PULSE 87; TEMP 36.8; O2SAT 93
[2017-01-16] MEDS: ALLOPURINOL 300 MG TAB PO SCH (08:36)
[2017-01-16] MEDS: LEVETIRACETAM 500 MG TAB PO SCH ×2 (08:36→20:19)
[2017-01-16] MEDS: DOCUSATE SODIUM/SENNA 50/8.6MG TAB PO PRN (08:37)
[2017-01-16] MEDS: LISINOPRIL 20 MG TAB PO SCH ×2 (08:37→20:20)
[2017-01-16] MEDS: ATORVASTATIN 20 MG TAB PO SCH (08:37)
[2017-01-16] MEDS: AMLODIPINE BESYLATE 5 MG TAB PO SCH (08:37)
[2017-01-16] MEDS: PHENAZOPYRIDINE HCL 200 MG TAB PO PRN (08:37)
[2017-01-16] MEDS: ASPIRIN 81 MG ECTAB PO SCH (08:37)
[2017-01-16] MEDS: CHOLECALCIFEROL 1000 INTER.UNIT TAB PO SCH (08:38)
[2017-01-16] MEDS: PANTOprazole SOD 40 MG TAB PO SCH (08:38)
[2017-01-16] MEDS: PYRIDOXINE HCL 50 MG TAB PO SCH (08:38)
[2017-01-16] MEDS: INSULIN ASPART 100 UNITS/ML 3 ML PEN SC SCH ×4 (08:43→20:25)
[2017-01-16] MEDS: HEPARIN SOD 5000 UNIT/0.5 ML CARP SQ SCH ×2 (08:44→20:24)
[2017-01-16] MEDS: INSULIN GLARGINE SOLOSTAR 100 UNITS/ML 3 ML PEN SC SCH ×2 (08:44→20:24)
--- NOTE | 2017-01-16 11:21 | Hospitalist Progress Note ---
Hospitalist Progress Note Date of Service January 16, 2017. Subjective Pt evaluation today including: conversation w/ patient, physical exam, chart review No complaints. Objective Vital Signs Date Time Temp Pulse Resp B/P Pulse Ox O2 Delivery O2 Flow Rate FiO2 01/16/17 08:00 Room Air 01/16/17 07:24 36.8 87 22 166/80 93 Room Air 01/16/17 05:08 36.1 95 20 188/68 98 Room Air 01/16/17 04:00 Room Air 01/16/17 00:00 Room Air 01/15/17 23:57 36.9 74 18 188/70 95 Room Air 01/15/17 20:15 36.7 92 20 171/70 95 Room Air 01/15/17 20:00 Room Air 01/15/17 16:00 Room Air 01/15/17 15:35 36.3 101 18 125/83 95 01/15/17 12:00 Room Air 01/15/17 11:37 36.5 91 18 162/77 97 Physical Exam General Appearance: WD/WN Eyes: normal inspection ENT: normal ENT inspection Neck: supple Respiratory/Chest: chest non-tender Cardiovascular: regular rate, rhythm, no murmur Abdomen: normal bowel sounds, non tender Extremities: normal range of motion Skin: normal color Laboratory Results Last 24 Hours Test 01/15/17 11:52 01/15/17 16:07 01/15/17 20:37 01/16/17 05:47 Bedside Glucose 252 mg/dl 214 mg/dl 162 mg/dl Creatinine 1.50 mg/dl Est Creatinine Clear Calc Drug Dose 48.4 ml/min Estimated GFR () 52.8 Estimated GFR (Non- 45.5 Test 01/16/17 07:41 Bedside Glucose 150 mg/dl Assessment and Plan 71 y/o male, with PMHx of CVA w/ residual left-sided weakness, T2DM, CKD stage III, HTN, seizure disorder, GERD, and gout, who presented to the ED because of persistent fevers/chills, weakness, and pain w/ urination. Sepsis (RESOLVED) 2/2 UTI: Klebsiella, E. Coli, Pseudomonas: - UCx (outpatient 01/10) - Pansensitive Klebsiella pneumoniae, pansensitive E. coli, and pseudomonas aeruginosa (resistant/intermediate to cipro and levaquin) - Abd/Pelvis CT - prostamegaly and mild bladder wall thickening - presence of reservoir in prostate - patient has H/O inflatable implant for ED - Cefepime 2 g IV daily - DAY #12/13 - Bladder scan and straight cath as necessary - Urology consultation placed - recommendations reviewed -- Flomax 0.4 mg daily, Proscar 5 mg daily, and Pyridium 200 mg BID PRN -- Outpatient cystoscopy x 6 weeks (at least) - PICC line placed yesterday. Elevated Troponins: - Troponins peaked at 0.810 (POC reading), then 0.433 and now 0.228 - likely demand ischemia vs CARLITOS on CKD Acute Kidney Injury on CKD Stage III: Baseline Cr 1.6-2.0 - Cr is improved to approx. baseline at 1.6 today - Hold nephrotoxic agents and follow BMP Weakness: Likely from UTI superimposed on L residual deficits from prior CVA - PT/OT evaluations - recommendations for acute inpatient rehab HTN: - Lisinopril restarted y.day. Since BP trend is high will increase lisinopril to 20mg bid. - Continue Norvasc 10 mg daily and Hydralazine 10 mg IV PRN T2DM: - Hold home regimen - Levemir 65 units SC HS and Novolog - Continues to have glucose in 300s and will tighten coverage as below: - Add Lantus 30 units SC BID with SSI with correction factor 25 and carb ratio 8 - will monitor sugars and possible place back on home regimen - BSG ACHS H/O CVA w/ Residual L-Sided Weakness: ASA 81 mg daily and Lipitor 20 mg daily Seizure Disorder: STABLE - Keppra 500 mg BID DVT Prophylaxis: Heparin 5000 units SC Q12H, PHIL/SCDs Code Status: FULL RESUSCITATION
[2017-01-16 11:44] VITALS: BP 173/67; PULSE 90; TEMP 36.4; O2SAT 94
[2017-01-16] MEDS: CEFEPIME IV 2,000 MG in DEXTROSE 5% 100ML 100 ML IV SCH (13:14)
[2017-01-16 15:00] VITALS: BP 155/59; PULSE 82; TEMP 36.5; O2SAT 95
[2017-01-16 19:17] VITALS: BP 171/68; PULSE 86; TEMP 37; O2SAT 97
[2017-01-16] MEDS: TAMSULOSIN HCL 0.4 MG CAP PO SCH (20:18)
[2017-01-16] MEDS: FINASTERIDE 5 MG TAB PO SCH (20:18)
[2017-01-16 23:55] VITALS: BP 178/68; PULSE 85; TEMP 37.1; O2SAT 95
[2017-01-17] VITALS (7 sets, daily range): BP systolic 165–195; BP diastolic 63–73; PULSE 66–92; TEMP 36.7–37; O2SAT 92–99
[2017-01-17] MEDS: PHENAZOPYRIDINE HCL 200 MG TAB PO PRN ×2 (00:47→08:24)
[2017-01-17] MEDS: HydrALAZINE HCL 20 MG/ML VIAL IV. PRN (04:34)
[2017-01-17] MEDS ORDERED: METOPROLOL TARTRATE 25 MG TAB PO ONE ×2 (06:30→09:15)
[2017-01-17] MEDS: AMLODIPINE BESYLATE 5 MG TAB PO SCH (08:25)
[2017-01-17] MEDS: LISINOPRIL 20 MG TAB PO SCH ×2 (08:25→21:52)
[2017-01-17] MEDS: LEVETIRACETAM 500 MG TAB PO SCH ×2 (08:25→21:54)
[2017-01-17] MEDS: ALLOPURINOL 300 MG TAB PO SCH (08:25)
[2017-01-17] MEDS: CHOLECALCIFEROL 1000 INTER.UNIT TAB PO SCH (08:26)
[2017-01-17] MEDS: ASPIRIN 81 MG ECTAB PO SCH (08:26)
[2017-01-17] MEDS: DOCUSATE SODIUM/SENNA 50/8.6MG TAB PO PRN (08:26)
[2017-01-17] MEDS: PYRIDOXINE HCL 50 MG TAB PO SCH (08:26)
[2017-01-17] MEDS: ATORVASTATIN 20 MG TAB PO SCH (08:26)
[2017-01-17] MEDS: PANTOprazole SOD 40 MG TAB PO SCH (08:27)
[2017-01-17] MEDS: INSULIN ASPART 100 UNITS/ML 3 ML PEN SC SCH ×4 (08:33→22:05)
[2017-01-17] MEDS: INSULIN GLARGINE SOLOSTAR 100 UNITS/ML 3 ML PEN SC SCH ×2 (08:34→22:06)
[2017-01-17] MEDS: HEPARIN SOD 5000 UNIT/0.5 ML CARP SQ SCH ×2 (08:34→22:07)
[2017-01-17] MEDS: CEFEPIME IV 2,000 MG in DEXTROSE 5% 100ML 100 ML IV SCH (12:39)
[2017-01-17 13:14] LABS: CREATININE 1.5 mg/dl (0.60-1.40)
[2017-01-17] MEDS ORDERED: SODIUM CHLORIDE 0.65% NA SOLN 45 ML (OCEAN) ONE (14:33)
[2017-01-17] MEDS ORDERED: NURSING VERBAL MED ORDER ONE (14:45)
[2017-01-17] MEDS ORDERED: SODIUM CHLORIDE 0.65% NA SOLN 45 ML (OCEAN) PRN (15:00)
--- NOTE | 2017-01-17 15:44 | Progress Note ---
Subjective Date of Service: January 17, 2017. Subjective Pt evaluation today including: conversation w/ patient, physical exam, lab review, review of inpatient medication list Pain: pain on urination PO Intake: adequate Voiding: no voiding problems patient still with burning on urination, little improvement since admission on antibiotics no penile discharge, no fever, no suprapubic pain had RN perform post void residual, only 100cc which is okay transferred to medical floor, no tele needs awaiting repeat PT/OT evaluations to see about rehab Problem List Medical Problems: (1) Chronic kidney disease Status: Acute (2) Contusion of ribs Status: Acute (3) Sepsis Status: Acute (4) UTI (urinary tract infection) Status: Acute (5) Weakness Status: Acute Review of Systems Constitutional: + fatigue, + weakness Male : + dysuria Neurologic: + balance problems, + weakness All Other Systems: Reviewed and Negative Medications Current Inpatient Medications Medications (Trade) Dose Ordered Sig/Ziyad Route Start Time Stop Time Status Last Admin Dose Admin Heparin Sodium (Porcine) (Heparin Sq 5000 Unit/0.5ml) 5,000 unit Q12 SQ 01/11/17 21:00 02/10/17 20:59 01/17/17 08:34 5,000 UNIT Acetaminophen (Tylenol Tab) 650 mg Q4H PRN PO 01/11/17 15:00 02/10/17 14:59 01/13/17 16:00 650 MG Al Hydrox/Mg Hydrox/Simethicone (Maalox Max Susp) 15 ml Q4H PRN PO 01/11/17 15:00 02/10/17 14:59 Magnesium Hydroxide (Milk Of Magnesia Susp) 30 ml Q12H PRN PO 01/11/17 15:00 02/10/17 14:59 Ondansetron HCl (Zofran Inj) 4 mg Q6H PRN IV 01/11/17 15:00 02/10/17 14:59 Nitroglycerin (Nitrostat Tab) 0.4 mg UD PRN SL 01/11/17 15:00 02/10/17 14:59 Polyethylene (Miralax Powder Packet) 17 gm DAILY PRN PO 01/11/17 15:00 02/10/17 14:59 01/13/17 10:54 17 GM Allopurinol (Zyloprim Tab) 300 mg DAILY PO 01/12/17 09:00 02/11/17 08:59 01/17/17 08:25 300 MG Amlodipine Besylate (Norvasc Tab) 10 mg DAILY PO 01/12/17 09:00 02/11/17 08:59 01/17/17 08:25 10 MG Aspirin (Ecotrin Tab) 81 mg DAILY PO 01/12/17 09:00 02/11/17 08:59 01/17/17 08:26 81 MG Atorvastatin Calcium (Lipitor Tab) 20 mg DAILY PO 01/12/17 09:00 02/11/17 08:59 01/17/17 08:26 20 MG Cholecalciferol (Vitamin D Tab) 1,000 inter.unit DAILY PO 01/12/17 09:00 02/11/17 08:59 01/17/17 08:26 1,000 INTER.UNIT Levetiracetam (Keppra Tab) 500 mg Q12 PO 01/11/17 21:00 02/10/17 20:59 01/17/17 08:25 500 MG Pantoprazole Sodium (Protonix Tab) 40 mg DAILY PO 01/12/17 09:00 02/11/17 08:59 01/17/17 08:27 40 MG Pyridoxine HCl (Vitamin B-6 Tab) 100 mg DAILY PO 01/12/17 09:00 02/11/17 08:59 01/17/17 08:26 100 MG Senna/Docusate Sodium (Senokot S Tab) 1 tab BID PRN PO 01/11/17 15:00 02/10/17 14:59 01/17/17 08:26 1 TAB Hydralazine HCl (HydrALAZINE INJ) 10 mg Q6 PRN IV. 01/11/17 15:00 02/10/17 14:59 01/17/17 04:34 10 MG Insulin Aspart (novoLOG ASPART) SLIDING SCALE G... ACHS SC 01/11/17 16:30 02/10/17 16:29 01/17/17 12:39 13 UNITS Glucose (Glucose 40% Gel) 15-30 GRAMS 15 GRAMS... UD PRN PO 01/11/17 15:15 02/10/17 15:14 Glucose (Glucose Chew Tab) 4-8 Tablets 4 Tabl... UD PRN PO 01/11/17 15:15 02/10/17 15:14 Dextrose (Dextrose 50% 50ML Syringe) 25-50ML OF 50% DW IV FOR... UD PRN IV 01/11/17 15:15 02/10/17 15:14 Glucagon (Glucagon Inj) 1 mg UD PRN SQ 01/11/17 15:15 02/10/17 15:14 Oxycodone HCl 5 mg 5 mg Q4H PRN PO 01/13/17 00:30 01/27/17 00:29 01/13/17 00:54 5 MG Cefepime HCl/ Dextrose (Maxipime IV/D5 100ml) 112.5 ml @ 200 mls/hr Q24H IV 01/13/17 13:00 01/23/17 12:59 01/17/17 12:39 200 MLS/HR Cefepime HCl (Consult) 1 ea UD PRN N/A 01/13/17 13:00 02/12/17 12:59 Insulin Glargine (Lantus Solostar Pen) 30 unit BID SC 01/14/17 21:00 02/13/17 20:59 01/17/17 08:34 30 UNIT Tamsulosin HCl (Flomax Cap) 0.4 mg HS PO 01/14/17 21:00 02/13/17 20:59 01/16/17 20:18 0.4 MG Finasteride (Proscar Tab) 5 mg HS PO 01/14/17 21:00 02/13/17 20:59 01/16/17 20:18 5 MG Phenazopyridine HCl (Pyridium Tab) 200 mg BID PRN PO 01/14/17 12:30 02/13/17 12:29 01/17/17 08:24 200 MG Heparin Sodium (Porcine) (Heparin 10 Unit/ ml 5 ml Flush) 5 ml PRN PRN FLUSH 01/14/17 23:45 02/13/17 23:44 01/17/17 12:20 5 ML Lisinopril (Zestril Tab) 20 mg BID PO 01/16/17 21:00 02/15/17 20:59 01/17/17 08:25 20 MG Metoprolol Tartrate (Lopressor Tab) 50 mg BID PO 01/17/17 20:00 02/16/17 20:59 Sodium Chloride (Noble Nasal [place]) 1 sprays PRN PRN NA 01/17/17 15:00 02/16/17 14:59 Objective Vital Signs Date Time Temp Pulse Resp B/P Pulse Ox O2 Delivery O2 Flow Rate FiO2 01/17/17 15:30 36.8 66 20 167/65 93 Room Air 01/17/17 11:11 36.7 82 20 195/66 99 Room Air 01/17/17 10:56 36.8 87 20 96 01/17/17 08:02 Room Air 01/17/17 07:04 36.8 87 20 175/63 96 Room Air 01/17/17 05:52 91 187/72 01/17/17 04:27 37.0 92 20 181/68 92 Room Air 01/17/17 04:00 Room Air 01/17/17 00:00 Room Air 01/16/17 23:55 37.1 85 20 178/68 95 Room Air 01/16/17 20:00 Room Air 01/16/17 19:17 37.0 86 20 171/68 97 Room Air 01/16/17 16:00 Room Air Physical Exam General Appearance: WD/WN, no apparent distress Eyes: normal inspection, EOMI Neck: supple, no adenopathy, no JVD, trachea midline Respiratory/Chest: chest non-tender, lungs clear, normal breath sounds, no respiratory distress, no accessory muscle use Cardiovascular: regular rate, rhythm, no edema, no gallop, no JVD, no murmur Abdomen: normal bowel sounds, non tender, soft, no organomegaly Extremities: normal range of motion, non-tender, normal inspection, no pedal edema, no calf tenderness Neurologic/Psychiatric: 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 as tested, no motor/sensory deficits, alert, normal mood/affect, oriented x 3 Skin: normal color, warm/dry, no rash Laboratory Results Last 24 Hours Test 01/16/17 16:48 01/16/17 19:53 01/17/17 07:50 01/17/17 11:47 Bedside Glucose 223 mg/dl 197 mg/dl 165 mg/dl 295 mg/dl Test 01/17/17 12:24 Creatinine 1.50 mg/dl Est Creatinine Clear Calc Drug Dose 47.7 ml/min Estimated GFR () 52.8 Estimated GFR (Non- 45.5 Assessment and Plan 71 y/o male, with PMHx of CVA w/ residual left-sided weakness, T2DM, CKD stage III, HTN, seizure disorder, GERD, and gout, who presented to the ED because of persistent fevers/chills, weakness, and pain w/ urination. Sepsis (RESOLVED) 2/2 UTI: Klebsiella, E. Coli, Pseudomonas: - UCx (outpatient 01/10) - Pansensitive Klebsiella pneumoniae, pansensitive E. coli, and pseudomonas aeruginosa (resistant/intermediate to cipro and levaquin) - Abd/Pelvis CT - prostamegaly and mild bladder wall thickening - presence of reservoir in prostate - patient has H/O inflatable implant for ED - Cefepime 2 g IV daily - DAY #01/12 - Bladder scan and straight cath as necessary - only 100cc post void residual today, urinating well - Urology consultation placed - recommendations reviewed -- Flomax 0.4 mg daily, Proscar 5 mg daily, and Pyridium 200 mg BID PRN -- Outpatient cystoscopy x 6 weeks (at least) - PICC line placed 01/15 Elevated Troponins: - Troponins peaked at 0.810 (POC reading), then 0.433 and now 0.228 - likely demand ischemia vs CARLITOS on CKD Acute Kidney Injury on CKD Stage III: Baseline Cr 1.6-2.0 - Cr is improved to approx. baseline at 1.5 today - Hold nephrotoxic agents and follow BMP Weakness: Likely from UTI superimposed on L residual deficits from prior CVA - PT/OT evaluations - recommendations for acute inpatient rehab - needs repeat evaluations for insurance purposes HTN: quite elevated during admission - outpatient regimen reviewed, takes Benazepril 40mg, HCTZ 25mg, Norvasc 10mg - will increase Lopressor to 50mg BID, BP better and HR tolerating with rates in 60-70's T2DM: - Hold home regimen - Levemir 65 units SC HS and Novolog - continue Lantus 30 units SC BID with SSI with correction factor 25 and carb ratio 8 - BSG ACHS H/O CVA w/ Residual L-Sided Weakness: ASA 81 mg daily and Lipitor 20 mg daily Seizure Disorder: STABLE - Keppra 500 mg BID DVT Prophylaxis: Heparin 5000 units SC Q12H, PHIL/SCDs Code Status: FULL RESUSCITATION Continued [facility] stay due to: multiple IV medications needed Discharge planning: rehab hospital
[2017-01-17] MEDS ORDERED: METOPROLOL TARTRATE 25 MG TAB PO SCH (21:00)
[2017-01-17] MEDS: METOPROLOL TARTRATE 50 MG TAB PO SCH (21:51)
[2017-01-17] MEDS: TAMSULOSIN HCL 0.4 MG CAP PO SCH (21:55)
[2017-01-17] MEDS: FINASTERIDE 5 MG TAB PO SCH (21:56)
[2017-01-18] VITALS: O2SAT 97
[2017-01-18 07:13] VITALS: BP 146/62; PULSE 73; TEMP 36.8; O2SAT 96
[2017-01-18] MEDS: LISINOPRIL 20 MG TAB PO SCH (08:10)
[2017-01-18] MEDS: ATORVASTATIN 20 MG TAB PO SCH (08:11)
[2017-01-18] MEDS: ALLOPURINOL 300 MG TAB PO SCH (08:11)
[2017-01-18] MEDS: AMLODIPINE BESYLATE 5 MG TAB PO SCH (08:11)
[2017-01-18] MEDS: PYRIDOXINE HCL 50 MG TAB PO SCH (08:11)
[2017-01-18] MEDS: CHOLECALCIFEROL 1000 INTER.UNIT TAB PO SCH (08:11)
[2017-01-18] MEDS: ASPIRIN 81 MG ECTAB PO SCH (08:11)
[2017-01-18] MEDS: PANTOprazole SOD 40 MG TAB PO SCH (08:11)
[2017-01-18] MEDS: METOPROLOL TARTRATE 50 MG TAB PO SCH (08:12)
[2017-01-18] MEDS: LEVETIRACETAM 500 MG TAB PO SCH (08:12)
[2017-01-18] MEDS: ACETAMINOPHEN 325 MG TAB PO PRN (08:13)
[2017-01-18 08:33] LABS: HEMATOCRIT 31.4 % (42-52); MEAN CELL VOLUME 88.2 fL (80-100); MEAN CORPUSCULAR HEMOGLOBIN 28.9 pg (25-34); MEAN CORPUSCULAR HGB CONC 32.8 g/dl (32-36); MEAN PLATELET VOLUME 10.1 fL (7.4-10.4); PLATELET COUNT 280 K/uL (130-400); RED BLOOD COUNT 3.56 M/uL (4.7-6.1)
[2017-01-18] MEDS: INSULIN GLARGINE SOLOSTAR 100 UNITS/ML 3 ML PEN SC SCH (08:56)
[2017-01-18] MEDS: INSULIN ASPART 100 UNITS/ML 3 ML PEN SC SCH ×2 (08:56→13:06)
[2017-01-18] MEDS: HEPARIN SOD 5000 UNIT/0.5 ML CARP SQ SCH (08:57)
[2017-01-18 09:06] LABS: CREATININE 1.5 mg/dl (0.60-1.40)
[2017-01-18] MEDS ORDERED: METO50TA17 PO (12:33)
[2017-01-18] MEDS ORDERED: PHEN-1043 PO (12:33)
[2017-01-18] MEDS ORDERED: FLM4 PO (12:33)
[2017-01-18] MEDS ORDERED: PRS5 PO (12:33)
[2017-01-18] MEDS: CEFEPIME IV 2,000 MG in DEXTROSE 5% 100ML 100 ML IV SCH (12:38)
--- NOTE | 2017-01-18 12:42 | Discharge Instructions ---
Discharge Instructions Date of Service January 18, 2017. Admission Reason for Admission: UTI Discharge Discharge Diagnosis / Problem: UTI - Pseudomas, resistant strain. Uncontrolled HTN, BPH Discharge Goals Goal(s): Improve function, Improve disease control, Diagnostic testing ( cystoscopy in 6 weeks) Activity Recommendations Activity Limitations: resume your previous activity Lifting Limitations: none Exercise/Sports Limitations: as tolerated May Resume Sexual Activity: after follow-up appointment Shower/Bathe: no limitations Driving or Machine Use: no limitations . Instructions / Follow-Up Instructions / Follow-Up Medications: all new scripts sent to [facility] pharmacy except for Cefepime that was faxed to home nursing supplier - CEFEPIME: intravenous antibiotic that will be administered once daily for 4 more days, starting tomorrow, this treats your urinary tract infection - LOPRESSOR: 50mg twice a day, started during hospitalization for elevated blood pressure despite being on your home medications - FLOMAX: started by urology to help relax the prostate - FINASTERIDE: started by urology, helps shrink prostate over time, will take months to work - PYRIDIUM: continue to use only as needed for burning with urination UTI: urine culture grew several bacteria including E coli and a resistant strain of Pseudomonas, Infectious disease specialist recommended 10 day course of Cefepime IV you received 6 doses while hospitalized, need 4 more doses at home will go home with a PICC line in the arm, can be removed once treatment finished Uncontrolled hypertension: you were already on Norvasc 10mg, Benazepril 40mg daily and HCTZ 25mg daily stop taking the HCTZ 25mg (this was held in hospital) started on Lopressor 50mg twice a day, continue this medication follow up with Dr. Maier in a week BPH (enlarged prostate): started on Flomax and Finasteride by urology, continue these FOLLOW UP - Dr. Maier, please call for appointment in next 5-7 days for hospital follow up - Dr. Trimble, [facility], you need outpatient cystoscopy in 6 weeks, call to schedule, Current Hospital Diet Patient's current hospital diet: Diabetes Type 2 Diet Discharge Diet Recommended Diet: Diabetes Type 2 Diet Pending Studies Studies pending at discharge: no Medical Emergencies . Who to Call and When: Medical Emergencies: If at any time you feel your situation is an emergency, please call 911 immediately. . Non-Emergent Contact Non-Emergency issues call your: Primary Care Provider Call Non-Emergent contact if: you have a fever, you have any medication questions . Past History Medical & Surgical History: (1) Hypertension (2) BPH (benign prostatic hyperplasia) (3) UTI (urinary tract infection) (4) Sepsis . "Provider Documentation" section prepared by Ryne Umaña. . VTE Core Measure Inpt VTE Proph given/why not?: Unfractionated heparin NABOR, T.E.Everton. Yeny, SCD 's [place] Drug Monitoring Program Search Results: no issues identified
--- NOTE | 2017-01-18 12:51 | Discharge Summary ---
Discharge Summary Date of Service January 18, 2017. Discharge Summary Admission Date: January 11, 2017 at 15:01 Discharge Date: January 18, 2017 Discharge Disposition: Home with services Principal Diagnosis: UTI with sepsis, Pseudomonas Problems/Secondary Diagnoses: Uncontrolled hypertension BPH DM type II Immunizations: Have You Had Influenza Vaccine: Yes History of Tetanus Vaccine?: Yes History of Pneumococcal: Yes Pneumococcal Date: Mar 17, 2008 History of Hepatitis B Vaccine: Unknown Procedures: none Consultations: Urology Infectious Disease Medication Reconciliation New Medications: Finasteride (Finasteride) 5 Mg Tab 5 MG PO HS, #30 TAB 3 Refills Metoprolol Tartrate (Metoprolol Tartrate) 50 Mg Tab 50 MG PO BID, #60 TAB 3 Refills Phenazopyridine HCl (Phenazopyridine HCl) 200 Mg Tab 200 MG PO BID PRN for Bladder pain, #14 TAB 1 Refill Tamsulosin HCl (Tamsulosin HCl) 0.4 Mg Cap 0.4 MG PO HS, #30 CAP 3 Refills Continued Medications: Allopurinol (Zyloprim) 300 Mg Tab 300 MG PO DAILY, TAB Amlodipine (Norvasc) 5 Mg Tab 10 MG PO DAILY, TAB Aspirin (Aspirin 81) 81 Mg Tab 81 MG PO DAILY Atorvastatin (Lipitor) 10 Mg Tab 20 MG PO DAILY, TAB Benazepril (Lotensin) 40 Mg Tab 40 MG PO DAILY, TAB Cholecalciferol (Vitamin D3) 1,000 Unit Tab 5000 UNITS PO DAILY for 90 Days, TAB 3 Refills Colchicine (Colchicine) 0.6 Mg Tab 0.6 MG PO DAILY, TAB Insulin Aspart (Novolog) 100 Units/Ml Inj 18 UNIT SQ WM Insulin Detemir (Levemir) 100 Units/Ml Inj 65 UNITS SQ HS Levetiracetam (Keppra) 500 Mg Tab 500 MG PO Q12, TAB Nitroglycerin (Nitrostat) 0.4 Mg Tab 1 TAB SL UD, #100 TAB 3 Refills Pantoprazole (Protonix) 40 Mg Tab 40 MG PO DAILY, TAB Pyridoxine Hcl (Vitamin B-6) 50 Mg Tab 100 MG PO DAILY Sennosides-Docusate Sodium (Senna S) 1 Tab Tab 1 TABLET PO AMPM Discharge Exam Patient feeling well today, was denied rehab but actually wanted to go home anyway. Arranged for home IV antibiotics and discussed plan with patient, all questions answered. Review of Systems: Constitutional: No chills, No fatigue, No fever, No problem reported, No sweats, No weakness, No weight loss Eyes: No diplopia, No discharge, No eye pain, No problem reported, No redness, No worsening of vision ENT: No dental problems, No hearing loss, No nasal symptoms, No problem reported, No sore throat, No tinnitus, No trouble swallowing, No unusual epistaxis Respiratory: No cough, No dyspnea at rest, No dyspnea on exertion, No hemoptysis, No problem reported, No shortness of breath, No sputum, No wheezing Cardiovascular: No PND, No chest pain, No claudication, No edema, No orthopnea, No palpitations, No problem reported Abdomen: No GI bleeding, No constipation, No diarrhea, No nausea, No pain, No problem reported, No vomiting Musculoskeletal: No calf pain, No joint pain, No muscle pain, No problem reported, No swelling Genitourinary - Male: + dysuria (slightly, but improved overall), No hematuria, No penile discharge, No urinary frequency, No urinary hesitancy, No urinary incontinence, No urinary retention, No urinary urgency Neurologic: No balance problems, No memory loss, No numbness/tingling, No paralysis, No problem reported, No vertigo, No weakness Psychiatric: No anhedonism, No anxiety, No depression symptoms, No insomnia , No problem reported, No substance abuse Endocrine: No excessive thirst, No excessive urination, No fatigue, No problem reported Hematologic / Lymphatic: No abnormal bleeding/bruising, No clotting problems , No night sweats, No problem reported, No swollen lymph nodes Integumentary: No bleeding, No color change, No itch, No new/changing skin lesions, No problem reported, No rash Physical Exam: General Appearance: WD/WN, no apparent distress Eyes: normal inspection, EOMI, sclerae normal ENT: normal ENT inspection, hearing grossly normal, pharynx normal Neck: supple, no adenopathy, no JVD, trachea midline Respiratory/Chest: chest non-tender, lungs clear, normal breath sounds, no respiratory distress, no accessory muscle use Cardiovascular: regular rate, rhythm, no edema, no gallop, no JVD, no murmur , normal peripheral pulses Abdomen / GI: normal bowel sounds, non tender, soft, no organomegaly Extremities: normal inspection, no calf tenderness, normal capillary refill , no pedal edema, normal range of motion Neurologic/Psychiatric: comedian II-XII nml as tested, no motor/sensory deficits , alert, normal mood/affect, normal reflexes, oriented x 3 Skin: normal color, warm/dry, no rash Lymphatic: no adenopathy Hospital Course 71 y/o male, with PMHx of CVA w/ residual left-sided weakness, T2DM, CKD stage III, HTN, seizure disorder, GERD, and gout, who presented to the ED because of persistent fevers/chills, weakness, and pain w/ urination. Sepsis (RESOLVED) secondary to UTI: Klebsiella, E. Coli, Pseudomonas on outpatient culture - UCx (outpatient 01/10) - Pansensitive Klebsiella pneumoniae, pansensitive E. coli, and pseudomonas aeruginosa (resistant/intermediate to cipro and levaquin) - Abd/Pelvis CT - prostamegaly and mild bladder wall thickening - presence of reservoir in prostate - patient has H/O inflatable implant for ED - Cefepime 2 g IV daily - DAY #02/12 - Bladder scan and straight cath as necessary - only 100cc post void residual, urinating well - Urology consultation placed - recommendations reviewed -- started on Flomax 0.4 mg daily, Proscar 5 mg daily, and Pyridium 200 mg BID PRN -- Outpatient cystoscopy x 6 weeks (at least) - PICC line placed 01/15 will d/c home on Cefepime 2gm IV daily x 4 more days, follow up with PCP in 5 -7 days continue the Flomax and Finasteride and can use Pyridium PRN (dysuria improving) plan to follow up for cystoscopy in [address] Trimble Acute Kidney Injury on CKD Stage III: Baseline Cr 1.6-2.0 - completely resolved, Cr at baseline for several days, 1.5 today - FRIDA inhibitor initially held but resumed for BP control Weakness: Likely from UTI superimposed on L residual deficits from prior CVA - PT/OT evaluations - recommended rehab initially but patient improved over the weekend, denied rehab today - going home with home health HTN, uncontrolled: quite elevated during admission - outpatient regimen reviewed, takes Benazepril 40mg, HCTZ 25mg, Norvasc 10mg - will increase Lopressor to 50mg BID, BP better and HR tolerating with rates in 60-70's d/c home on Lopressor, Norvasc, Benazepril and stop HCTZ since he was not taking in hospital follow up with PCP in 5-7 days T2DM: - resume home regimen - Levemir 65 units SC HS and Novolog H/O CVA w/ Residual L-Sided Weakness: ASA 81 mg daily and Lipitor 20 mg daily Seizure Disorder: STABLE - Keppra 500 mg BID DVT Prophylaxis: Heparin 5000 units SC Q12H, PHIL/SCDs Code Status: FULL RESUSCITATION Total Time Spent: Greater than 30 minutes This includes examination of the patient, discharge planning, medication reconciliation, and communication with other providers. Discharge Instructions Please refer to the electronic Patient Visit Report (Discharge Instructions) for additional information. Follow-Up Dr. Maier in 5-[address] Trimble in 6 weeks for cystoscopy Additional Copies To Tamiko Maier M.D.; Johnny Trimble MD
[2017-01-18 12:52] VITALS: BP 146/62; PULSE 73; TEMP 36.8; O2SAT 96
== END 2017-01-18 14:46 | disposition home health service (06) | DRG 872 ==
LOC: ENRESERVDT → ENRESERVTM → C.EDB 11:38 → C.MED 15:01 → C.MS4W 01-17 10:59
PROVIDERS: ADMIT Hospitalist; ATTEND Internal Medicine
PROC: 02HV33Z Insertion of Infusion Device into Superior Vena Cava, Percutaneous Approach (ICD-10-PCS; principal; 2017-01-14)
DX: A41.9 Sepsis, unspecified organism (principal); N39.0 Urinary tract infection, site not specified; I69.354 Hemiplegia and hemiparesis following cerebral infarction affecting left non-dominant side; N17.9 Acute kidney failure, unspecified; E11.22 Type 2 diabetes mellitus with diabetic chronic kidney disease; N18.3 Chronic kidney disease, stage 3 (moderate); I12.9 Hypertensive chronic kidney disease with stage 1 through stage 4 chronic kidney disease, or unspecified chronic kidney disease; K21.9 Gastro-esophageal reflux disease without esophagitis; M10.9 Gout, unspecified; G40.909 Epilepsy, unspecified, not intractable, without status epilepticus; N40.0 Benign prostatic hyperplasia without lower urinary tract symptoms; B96.1 Klebsiella pneumoniae [K. pneumoniae] as the cause of diseases classified elsewhere; B96.5 Pseudomonas (aeruginosa) (mallei) (pseudomallei) as the cause of diseases classified elsewhere; Z79.82 Long term (current) use of aspirin; Z79.899 Other long term (current) drug therapy; Z95.1 Presence of aortocoronary bypass graft

== ENCOUNTER → 2017-02-25 | Outpatient (CLI) | payer OTHER ==
[~2017-02-25] MED LIST changes: +ASPI-435 PO; +BENA1TAB53 PO; +FLM4 PO; -INSUINJ12 SC; +LVMI SQ; +METO50TA17 PO; +NVLG SQ; -NVLGI SC; +PHEN-1043 PO; +PRS5 PO
[2017-02-25 14:14] LABS: BASO % 0.6 %; BASO ABS # 0.05 K/uL (0-0.2); COMPLETE YES; EOS % 1.8 %; HEMATOCRIT 38.4 % (42-52); IG% 0.2 %; LYMPH % 25.7 %; LYMPH ABS # 2.15 K/uL (1.2-3.4); MEAN CELL VOLUME 88.5 fL (80-100); MEAN CORPUSCULAR HEMOGLOBIN 27.9 pg (25-34); MEAN CORPUSCULAR HGB CONC 31.5 g/dl (32-36); MEAN PLATELET VOLUME 11.3 fL (7.4-10.4); MONO % 6.2 %; NEUT % 65.5 %; PLATELET COUNT 201 K/uL (130-400); RED BLOOD COUNT 4.34 M/uL (4.7-6.1); WHITE BLOOD COUNT 8.37 K/uL (4.8-10.8)
[2017-02-25 14:34] LABS: ESTIMATED AVERAGE GLUCOSE 163 mg/dl; HA1C FLAG Normal (Normal)
[2017-02-25 14:41] LABS: ALT/SGPT 66 U/L (12-78); AST/SGOT 54 U/L (15-37); BLOOD UREA NITROGEN 32 mg/dl (7-18); CALCIUM 9.4 mg/dl (8.5-10.1); CARBON DIOXIDE 26 mmol/L (21-32); CHLORIDE 112 mmol/L (98-107); CHOLESTEROL 168 mg/dl (0-200); GLUCOSE 113 mg/dl (70-99); POTASSIUM 4.4 mmol/L (3.5-5.1); SODIUM 146 mmol/L (136-145); TRIGLYCERIDES 409 mg/dl (0-150); URIC ACID 9.8 mg/dl (2.6-7.2)
[2017-02-25 14:46] LABS: ALB/GLOB RATIO 1.1 (0.9-2); ALKALINE PHOSPHATASE 84 U/L (45-117); HDL CHOLESTEROL 28 mg/dl
== END | disposition home or self-care (01) ==
LOC: C.LABMFLN 11:38
PROVIDERS: ATTEND Internal Medicine Nephrology
DX: N18.3 Chronic kidney disease, stage 3 (moderate) (principal); E11.29 Type 2 diabetes mellitus with other diabetic kidney complication; E78.5 Hyperlipidemia, unspecified; M10.9 Gout, unspecified

== ENCOUNTER → 2017-02-28 | Outpatient (CLI) | payer OTHER ==
[2017-02-28 18:49] LABS: URINE APPEARANCE CLEAR (CLEAR); URINE BILIRUBIN NEG (NEG); URINE COLOR YELLOW; URINE EPITHELIAL CELL AUTO 0-5 /lpf (0-5); URINE NITRITE NEG (NEG); UROBILINOGEN NEG (NEG)
[2017-02-28 18:51] LABS: URINE PROTIEN/CREAT RATIO 0.8 (0-0.2); URINE TOTAL PROTEIN 83.8 mg/dl (0-11.9)
[2017-02-28 18:55] LABS: MANUAL MICROSCOPIC REQUIRED? NO; REVIEW REQ? NO
== END | disposition home or self-care (01) ==
LOC: C.LABMFLN 12:08
PROVIDERS: ATTEND Internal Medicine Nephrology
DX: N18.3 Chronic kidney disease, stage 3 (moderate) (principal)

== ENCOUNTER → 2017-05-31 | Outpatient (CLI) | payer OTHER ==
[~2017-05-31] MED LIST changes: -ATOR10TA82 PO; +ATOR10TA88 PO; +BENA1TAB19 PO; -BENA1TAB53 PO; +PYRI50TA2 PO; -PYRI50TA8 PO
[2017-05-31 13:55] LABS: BASO % 0.6 %; BASO ABS # 0.05 K/uL (0-0.2); COMPLETE YES; HEMATOCRIT 37.3 % (42-52); IG% 0.3 %; LYMPH % 23.4 %; LYMPH ABS # 1.82 K/uL (1.2-3.4); MEAN CELL VOLUME 86.9 fL (80-100); MEAN CORPUSCULAR HEMOGLOBIN 28.9 pg (25-34); MEAN CORPUSCULAR HGB CONC 33.2 g/dl (32-36); MEAN PLATELET VOLUME 11.9 fL (7.4-10.4); NEUT % 64.7 %; PLATELET COUNT 182 K/uL (130-400); RED BLOOD COUNT 4.29 M/uL (4.7-6.1); WHITE BLOOD COUNT 7.77 K/uL (4.8-10.8)
[2017-05-31 14:21] LABS: ESTIMATED AVERAGE GLUCOSE 186 mg/dl; HA1C FLAG Normal (Normal)
[2017-05-31 14:39] LABS: ALT/SGPT 83 U/L (12-78); AMYLASE 32 U/L (25-115); AST/SGOT 58 U/L (15-37); BLOOD UREA NITROGEN 28 mg/dl (7-18); BUN/CREATININE RATIO 17.2 (10-20); CALCIUM 9.2 mg/dl (8.5-10.1); CARBON DIOXIDE 25 mmol/L (21-32); CHLORIDE 113 mmol/L (98-107); GLUCOSE 68 mg/dl (70-99); POTASSIUM 4.3 mmol/L (3.5-5.1); SODIUM 146 mmol/L (136-145); URIC ACID 6.7 mg/dl (2.6-7.2)
[2017-05-31 14:43] LABS: ALB/GLOB RATIO 0.9 (0.9-2); ALKALINE PHOSPHATASE 132 U/L (45-117)
== END | disposition home or self-care (01) ==
LOC: C.LABMFLN 10:13
PROVIDERS: ATTEND Family Medicine
DX: R10.11 Right upper quadrant pain (principal); M10.9 Gout, unspecified; E11.29 Type 2 diabetes mellitus with other diabetic kidney complication

== ENCOUNTER → 2017-06-03 | Outpatient (CLI) | payer OTHER ==
--- NOTE | 2017-06-03 10:11 | DIAGNOSTIC IMAGING REPORT ---
ABDOMEN LIMITED (US) CLINICAL HISTORY: 71 years-old Male presenting with R10.11 Abdominal pain, RUQ (right upper quadrant)[facility] [phone]. TECHNIQUE: Real-time grayscale and limited color Doppler ultrasound imaging of the abdomen limited to the right upper quadrant was performed. COMPARISON: CT from 01/11/2017. FINDINGS: Pancreas: Largely obscured due to overlying bowel gas. Liver: Moderately hyperechogenic parenchyma with partial obscuration of the right hemidiaphragm, likely indicating moderate steatosis. The liver measures 20.2 cm in maximal sagittal dimension. No sonographic evidence of hepatic mass. Main portal vein patent with normal directional flow. Biliary: No intrahepatic biliary ductal dilatation. Common bile duct measures up to 6 mm in diameter. Gallbladder: No evidence of gallstones, gallbladder wall thickening, gallbladder distention, or pericholecystic fluid or inflammatory change. Right kidney: 1.4 cm anechoic lesion at the lower pole with posterior acoustic enhancement likely simple cyst. No hydronephrosis. Ascites: None. IMPRESSION: 1. Hepatic steatosis. 2. No cholelithiasis or biliary ductal dilatation. Electronically signed by: Kevin Lozano M.D. 06/03/2017 10:10 AM Dictated Date/Time: 06/03/2017 10:07 AM
== END | disposition home or self-care (01) ==
LOC: C.ULTR 09:31
PROVIDERS: ATTEND Family Medicine
DX: R10.11 Right upper quadrant pain (principal); K76.0 Fatty (change of) liver, not elsewhere classified

== ENCOUNTER → 2017-07-18 | Outpatient (CLI) | payer OTHER ==
[~2017-07-18] MED LIST changes: +ATOR10TA82 PO; -ATOR10TA88 PO; -BENA1TAB19 PO; +BENA1TAB53 PO; -PYRI50TA2 PO; +PYRI50TA8 PO
== END | disposition home or self-care (01) ==
LOC: C.LABMFLN 10:13
PROVIDERS: ATTEND Family Medicine
DX: R19.7 Diarrhea, unspecified (principal)

== ENCOUNTER → 2017-09-02 | Outpatient (CLI) | payer OTHER ==
[~2017-09-02] MED LIST changes: -AMLO-110 PO; +AMLO5TAB3 PO; +LSX20 PO; +MTR/600 PO; +PANT1TAB3 PO; -PANT1TAB48 PO
[2017-09-02 18:06] LABS: HEMATOCRIT 38.1 % (42-52); HEMOGLOBIN 12.3 g/dL (14.0-18.0); MEAN CELL VOLUME 89.4 fL (80-100); MEAN CORPUSCULAR HEMOGLOBIN 28.9 pg (25-34); MEAN CORPUSCULAR HGB CONC 32.3 g/dl (32-36); MEAN PLATELET VOLUME 11.7 fL (7.4-10.4); PLATELET COUNT 186 K/uL (130-400); RED CELL DISTRIBUTION WIDTH CV 14.4 % (11.5-14.5); RED CELL DISTRIBUTION WIDTH SD 46.9 fL (36.4-46.3); WHITE BLOOD COUNT 7.19 K/uL (4.8-10.8)
[2017-09-02 18:19] LABS: ALBUMIN 3.5 gm/dl (3.4-5.0); ALT/SGPT 49 U/L (12-78); CALCIUM 9.2 mg/dl (8.5-10.1); CARBON DIOXIDE 29 mmol/L (21-32); CREATININE 1.54 mg/dl (0.60-1.40); GLUCOSE 205 mg/dl (70-99); POTASSIUM 4.8 mmol/L (3.5-5.1); SODIUM 141 mmol/L (136-145)
[2017-09-02 18:22] LABS: ALKALINE PHOSPHATASE 111 U/L (45-117); AST/SGOT 43 U/L (15-37); PHOSPHORUS 3.3 mg/dl (2.5-4.9); TOTAL PROTEIN 7.4 gm/dl (6.4-8.2)
[2017-09-02 18:25] LABS: BLOOD UREA NITROGEN 27 mg/dl (7-18)
[2017-09-03 07:59] LABS: HEMOGLOBIN A1C 7.6 % (4.5-5.6)
== END | disposition home or self-care (01) ==
LOC: C.LABMFLN 11:02
PROVIDERS: ATTEND Internal Medicine Nephrology
DX: E11.22 Type 2 diabetes mellitus with diabetic chronic kidney disease (principal); N18.3 Chronic kidney disease, stage 3 (moderate)

== ENCOUNTER 2017-11-24 17:11 | Observation (INO) | payer OTHER ==
[~2017-11-24] VITALS: Ht 160 cm; Wt 97.8 kg
[~2017-11-24 17:11] MED LIST changes: +AMLO-110 PO; -AMLO5TAB3 PO; -LSX20 PO; -MTR/600 PO
[2017-11-24] MEDS ORDERED: NITROGLYCERIN 2% OINTMENT 30GM TUBE EXT ONE (17:30)
[2017-11-24 17:55] LABS: BASO % 0.6 %; BASO ABS # 0.04 K/uL (0-0.2); EOS % 2.1 %; EOS ABS # 0.14 K/uL (0-0.5); HEMATOCRIT 35.1 % (42-52); HEMOGLOBIN 11.6 g/dL (14.0-18.0); IG# 0.02 K/uL (0.00-0.02); LYMPH % 30.2 %; LYMPH ABS # 2.01 K/uL (1.2-3.4); MEAN CELL VOLUME 86.2 fL (80-100); MEAN CORPUSCULAR HEMOGLOBIN 28.5 pg (25-34); MEAN PLATELET VOLUME 10.5 fL (7.4-10.4); MONO % 6.3 %; MONO ABS # 0.42 K/uL (0.11-0.59); NEUT % 60.5 %; NEUT ABS # 4.03 K/uL (1.4-6.5); PLATELET COUNT 190 K/uL (130-400); RED CELL DISTRIBUTION WIDTH CV 15.7 % (11.5-14.5); RED CELL DISTRIBUTION WIDTH SD 49.1 fL (36.4-46.3); WHITE BLOOD COUNT 6.66 K/uL (4.8-10.8)
[2017-11-24 18:06] LABS: PTT PATIENT 24.1 SECONDS (21.0-31.0)
--- NOTE | 2017-11-24 18:07 | DIAGNOSTIC IMAGING REPORT ---
CHEST ONE VIEW PORTABLE HISTORY: 72 years-old Male cp acute atypical chest pain COMPARISON: Chest radiograph 01/11/2017, chest CT 06/08/2016 TECHNIQUE: Portable AP view of the chest FINDINGS: Cardiac silhouette is again enlarged, unchanged. Prior median sternotomy and CABG. No pneumothorax, pleural effusion, focal airspace consolidation or overt pulmonary edema. Mild right hemidiaphragmatic elevation is unchanged. Degenerative changes are seen within the shoulders and spine. IMPRESSION: Cardiomegaly without overt pulmonary edema. The above report was generated using voice recognition software. It may contain grammatical, syntax or spelling errors. Electronically signed by: Nico Cornell M.D. 11/24/2017 6:05 PM Dictated Date/Time: 11/24/2017 6:03 PM
[2017-11-24 18:14] LABS: BLOOD UREA NITROGEN 39 mg/dl (7-18); CALCIUM 8.9 mg/dl (8.5-10.1); CARBON DIOXIDE 25 mmol/L (21-32); CREATININE 1.88 mg/dl (0.60-1.40); GLUCOSE 292 mg/dl (70-99); POTASSIUM 4.3 mmol/L (3.5-5.1); SODIUM 140 mmol/L (136-145)
[2017-11-24] MEDS ORDERED: GLUCOSE 40% GEL 15 GM TUBE PO PRN (19:00)
[2017-11-24] MEDS ORDERED: ONDANSETRON INJ 2 MG/ML 2 ML VIAL IV PRN (19:00)
[2017-11-24] MEDS ORDERED: ALUMINUM/MAGNESIUM/SIMETH (MAALOX MAX) 30 ML UDC PO PRN (19:00)
[2017-11-24] MEDS ORDERED: GLUCAGON FOR INJ 1 MG VIAL SQ PRN (19:00)
[2017-11-24] MEDS ORDERED: ACETAMINOPHEN 325 MG TAB PO PRN (19:00)
[2017-11-24] MEDS ORDERED: POLYETHYLENE (MIRALAX) 17 GM PACK PO PRN (19:00)
[2017-11-24] MEDS ORDERED: DEXTROSE 50% 50 ML SYR IV PRN (19:00)
[2017-11-24] MEDS ORDERED: NITROGLYCERIN 0.4 MG SL PER TAB CHARGE SL PRN (19:00)
[2017-11-24] MEDS ORDERED: GLUCOSE 10 TABS/TUBE PO PRN (19:00)
[2017-11-24] MEDS ORDERED: MAGNESIUM HYDROXIDE SUSP 30 ML UDC PO PRN (19:00)
--- NOTE | 2017-11-24 19:19 | History and Physical ---
History & Physical Date & Time of Service: Nov 24, 2017 at 19:13 Chief Complaint: Heart Pain- Cardiac Hx Primary Care Physician: Tamiko Maier M.D. History of Present Illness Source: patient, spouse Mr. 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 Patient states his chest pain started suddenly approximately 10 minutes after eating a snack of Jell-O, Cool Whip, and strawberries. He states after eating he ambulated a short distance to his chair and developed left chest pain that is located in the anterior axillary line at approximately rib level 4-5. He describes his pain as sharp in nature and is exacerbated by deep breathing. He did take 2 nitroglycerin tablets which improved his symptoms. Upon arrival to the ED, he reports his chest pain completely resolved. He denies any burning sensation or belching with this chest pain. He does use Protonix for acid reflux. Since his chest pain was still mild even after 2 nitroglycerin he was brought to the emergency room because that was the last 2 tablets he had. He does report an associated dry cough that has been going on for about a week with associated nasal congestion, postnasal drip, and mildly sore throat. He also reports chronic bilateral lower extremity edema with only minimal improvement with Lasix. He reports some discomfort in his legs when the edema is significant but currently reporting no pain. Patient has a history of hemorrhagic CVA. reports he had development of DVTs and has a IVC filter placed. Patient reports history of shingles vaccine possibly around 2013 time. He denies history of shingles. He denies fever/chills, diaphoresis, SOB, nausea/vomiting , abdominal pain, dysuria, constipation/diarrhea, melena/hematochezia. Past Medical/Surgical History Medical Problems: (1) Acute bronchitis (2) BPH (benign prostatic hyperplasia) (3) CAD (coronary artery disease) (4) Chest pain (5) Chronic kidney disease (6) Contusion of ribs (7) CVA (cerebral infarction) (8) Diabetes (9) Hemorrhagic stroke (10) Hyperkalemia (11) Hypertension (12) Laceration of hand (13) Laryngitis (14) Pulmonary embolism (15) Sepsis (16) UTI (urinary tract infection) (17) Weakness Surgical Problems: (1) H/O heart bypass surgery (2) History of back surgery (3) History of penile implant Family History Diabetes mellitus Hypertension Kidney disease Social History Smoking Status: Former Smoker Drug Use: none Marital Status: Housing status: lives with family Occupational Status: retired Immunizations History of Influenza Vaccine: Yes History of Tetanus Vaccine?: Yes History of Pneumococcal: Yes Pneumococcal Date: Mar 17, 2008 History of Hepatitis B Vaccine: Unknown Allergies Coded Allergies: Aspirin (Verified Allergy, Severe, SWOLLEN TONGUE, 01/11/17) Citric Acid (Verified Allergy, Severe, SWOLLEN TONGUE, 01/11/17) Sodium Bicarbonate (Verified Allergy, Severe, SWOLLEN TONGUE, 01/11/17) Adhesives (Verified Allergy, Unknown, SKIN BLISTERS AND TEARING, 01/11/17) Home Medications Scheduled Allopurinol (Zyloprim), 300 MG PO DAILY Amlodipine (Norvasc), 10 MG PO DAILY Aspirin (Aspirin 81), 81 MG PO DAILY Atorvastatin (Lipitor), 20 MG PO DAILY Benazepril (Lotensin), 40 MG PO DAILY Cholecalciferol (Vitamin D3), 5,000 UNITS PO DAILY Colchicine (Colchicine), 0.6 MG PO DAILY Finasteride (Finasteride), 5 MG PO HS Furosemide (Furosemide), 20 MG PO DAILY Insulin Aspart (Novolog), 18 UNIT SQ WM Insulin Detemir (Levemir), 65 UNITS SQ HS Levetiracetam (Keppra), 500 MG PO Q12 Metoprolol Tartrate (Metoprolol Tartrate), 50 MG PO BID Nitroglycerin (Nitrostat), 1 TAB SL UD Pantoprazole (Protonix), 40 MG PO DAILY Pyridoxine Hcl (Vitamin B-6), 100 MG PO DAILY Sennosides-Docusate Sodium (Senna S), 1 TABLET PO AMPM Tamsulosin HCl (Tamsulosin HCl), 0.4 MG PO HS Review of Systems Constitutional: No fever, No chills, No sweats, No fatigue ENT: + nasal symptoms, + sore throat, No trouble swallowing Respiratory: + cough, No sputum, No shortness of breath Cardiovascular: + chest pain (L anterior axillary line), No orthopnea, No palpitations Abdomen: No pain, No nausea, No vomiting, No diarrhea, No constipation, No GI bleeding Musculoskeletal: + swelling (Chronic B/L lower extremities) Genitourinary - Male: No dysuria Neurologic: + weakness (chronic L sided residual deficits) Hematologic / Lymphatic: No abnormal bleeding/bruising Integumentary: No rash Physical Exam Vital Signs Date Time Temp Pulse Resp B/P (MAP) Pulse Ox O2 Delivery O2 Flow Rate FiO2 11/24/17 18:11 68 11/24/17 18:02 95 Room Air 11/24/17 17:17 36.9 62 20 164/76 93 Room Air General Appearance: WD/WN, no apparent distress Head: normocephalic, atraumatic Eyes: sclerae normal ENT: hearing grossly normal, pharynx normal Neck: supple, no adenopathy, no JVD, trachea midline Respiratory/Chest: no respiratory distress, no accessory muscle use, + decreased breath sounds (bases b/l - difficult exam given short inspirations), + pertinent finding (tenderness to palpation at anterior axillary line around rib 4-5; no rash appreciated along this line) Cardiovascular: regular rate, rhythm, no gallop, no murmur Abdomen/GI: normal bowel sounds, non tender, soft Back: no CVA tenderness, + pertinent finding (tenderness to palpation of lumbar spine) Extremities/Musculoskelatal: + swelling (b/l 1+ pitting edema of lower extremities) Neurologic/Psych: alert, oriented x 3 Skin: normal color, warm/dry Diagnostics Laboratory Results Results Past 24 Hours Test 11/24/17 17:44 11/24/17 17:47 Range/Units White Blood Count 6.66 4.8-10.8 K/uL Red Blood Count 4.07 4.7-6.1 M/uL Hemoglobin 11.6 14.0-18.0 g/dL Hematocrit 35.1 42-52 % Mean Corpuscular Volume 86.2 80-100 fL Mean Corpuscular Hemoglobin 28.5 25-34 pg Mean Corpuscular Hemoglobin Concent 33.0 32-36 g/dl Platelet Count 190 130-400 K/uL Mean Platelet Volume 10.5 7.4-10.4 fL Neutrophils (%) (Auto) 60.5 % Lymphocytes (%) (Auto) 30.2 % Monocytes (%) (Auto) 6.3 % Eosinophils (%) (Auto) 2.1 % Basophils (%) (Auto) 0.6 % Neutrophils # (Auto) 4.03 1.4-6.5 K/uL Lymphocytes # (Auto) 2.01 1.2-3.4 K/uL Monocytes # (Auto) 0.42 0.11-0.59 K/uL Eosinophils # (Auto) 0.14 0-0.5 K/uL Basophils # (Auto) 0.04 0-0.2 K/uL RDW Standard Deviation 49.1 36.4-46.3 fL RDW Coefficient of Variation 15.7 11.5-14.5 % Immature Granulocyte % (Auto) 0.3 % Immature Granulocyte # (Auto) 0.02 0.00-0.02 K/uL Prothrombin Time 10.0 9.0-12.0 SECONDS Prothromb Time International Ratio 1.0 0.9-1.1 Activated Partial Thromboplast Time 24.1 21.0-31.0 SECONDS Partial Thromboplastin Ratio 0.9 Sodium Level 140 136-145 mmol/L Potassium Level 4.3 3.5-5.1 mmol/L Chloride Level 107 98-107 mmol/L Carbon Dioxide Level 25 21-32 mmol/L Anion Gap 8.0 3-11 mmol/L Blood Urea Nitrogen 39 7-18 mg/dl Creatinine 1.88 0.60-1.40 mg/dl Estimated GFR () 39.9 Estimated GFR (Non- 34.4 BUN/Creatinine Ratio 20.7 10-20 Random Glucose 292 70-99 mg/dl Calcium Level 8.9 8.5-10.1 mg/dl Bedside Troponin I < 0.030 0-0.045 ng/ml Diagnostic Radiology CHEST ONE VIEW PORTABLE FINDINGS: Cardiac silhouette is again enlarged, unchanged. Prior median sternotomy and CABG. No pneumothorax, pleural effusion, focal airspace consolidation or overt pulmonary edema. Mild right hemidiaphragmatic elevation is unchanged. Degenerative changes are seen within the shoulders and spine. IMPRESSION: Cardiomegaly without overt pulmonary edema. EKG Normal sinus rhythm Left axis deviation Nonspecific T wave abnormality Abnormal ECG When compared with ECG of 13-JAN-2017 07:04, Incomplete left bundle block is no longer Present Nonspecific T wave abnormality, worse in Lateral leads Impression Assessment and Plan Atypical Chest Pain with CAD S/P CABG: - Patient has a H/O cardiac disease and reports no chronic CP. Patient is largely immobile reporting he sleeps, walks to the bathroom, and sits in his chair and confirms "he does absolutely nothing" - Pain did improve with NTG however is more pleuritic in nature and reproducible - Will obtain D-Dimer - does have IVC filter but could possibly have clot above filter however low suspicion as patient is not hypoxic or tachycardic -- Could consider VQ scan as patient has CKD and will hold of CTA; ED planning to order b/l LE dopplers - Monitor on telemetry and obtain serial cardiac enzymes - Ordered dobutamine stress test - however could consider D/Cing as low suspicion of ACS as primary cause - ASA 81 mg daily and Atorvastatin 20 mg daily - NTG PRN - will need a renewed Rx to take home - Follows with Dr. Nix of [facility] but is switching to Dr. Bravo Chronic B/L Lower Extremity Edema: - Norvasc may be contributing to his lower extremity edema - Continue Lasix 20 mg daily - was initially Q2D but was increased at last nephrology visit HTN: - Norvasc 10 mg daily, Lopressor 50 mg BID, Benazepril 40 mg daily T2DM: A1c 7.6 - Reduce Levermir to 30 units SC HS given NPO status tomorrow morning and cover with SSI Gout: - Allopurinol 300 mg daily and Colchicine 0.6 mg daily BPH: - Proscar 5 mg HS and Flomax 0.4 mg HS Seizure Disorder: - Keppra 500 mg BID GERD: - Protonix 40 mg daily DVT Prophylaxis: Heparin Disposition: - reporting that he is a fall risk; ambulates with a felix or walker - will obtain PT/OT evaluations - Will need NTG renewed as he used last 2 doses today I personally interviewed and examined the patient. I agree with history of present illness and physical exam mentioned above, I also performed my own history taking and examination. Past medical history and review of system has been obtained by myself I reviewed all pertinent labs and studies Reviewed current medications I discussed and formulated of the assessment and plan mentioned above. Please refer to the Summary mentioned below. 72-year-old man with past medical history of hemorrhagic CVA in 2013 and residual left-sided weakness, currently on aspirin, history of DVT status post IVC filter, chronic kidney disease stage III baseline creatinine around 2, diabetes mellitus type 2, CAD status post CABG, and seizure disorder. Patient presented to the ED with intermittent left-sided pleuritic chest pain increased with deep breathing and reproducible on exam. Given his significant history of DVT in the past despite of having IVC filter, he still could have pulmonary embolism, a d-dimer was ordered if positive then VQ scan will be pursued, since his oxygen saturation currently is normal even if there is PE must be small not to influence his oxygen saturation and vitals no need to start anticoagulation with his history of hemorrhagic CVA in the past until a diagnosis of PE is confirmed and until multiple attendings help us with their input. Also giving his risk factors will trend his troponin rule out any cardiac origin for his pain General Appearance: not in acute distress, morbidly obese Eyes: normal Sclerae, extraocular muscle intact ENT: hearing grossly normal Neck: supple Respiratory/Chest: Decreased air entry bilateral ,no respiratory distress, no accessory muscle use Cardiovascular: regular rate, rhythm, no murmur Abdomen: non tender, soft, no masses Extremities: no edema Neurologic/Psychiatric: Awake alert oriented times place and person moves all extremities sensation intact cranial nerves II-12 appear to be intact, hard hearing Skin: normal color, warm/dry, no rash Jordan Zeng MD, [facility] Resuscitation Status VTE Prophylaxis Will order VTE Prophylaxis: Yes
[2017-11-24] MEDS ORDERED: LSX20 PO (19:37)
--- NOTE | 2017-11-24 20:07 | DIAGNOSTIC IMAGING REPORT ---
VENOUS DOPPLER LWR EXT BILA HISTORY: Pain. Edema. eval for dvt COMPARISON STUDY: None. FINDINGS: Normal venous Doppler right leg. Findings of acute deep venous thrombosis left leg] vein one of the 2. Posterior tibial veins. There is no involvement of the popliteal vein or any structures appear to the knee. IMPRESSION: 1. Normal venous Doppler right leg. 2. Focal acute deep venous thrombosis left posterior tibial vein inferior to the knee. No additional acute findings are present. The above report was generated using voice recognition software. It may contain grammatical, syntax or spelling errors. Electronically signed by: Prashant Glasgow M.D. 11/24/2017 8:06 PM Dictated Date/Time: 11/24/2017 8:04 PM
[2017-11-24 20:55] VITALS: BP 151/68; PULSE 71; TEMP 36.7; O2SAT 95; Ht 160 cm; Wt 97.8 kg
[2017-11-24] MEDS ORDERED: TAMSULOSIN HCL 0.4 MG CAP PO SCH (21:00)
[2017-11-24] MEDS ORDERED: FINASTERIDE 5 MG TAB PO SCH (21:00)
[2017-11-24] MEDS ORDERED: INSULIN DETEMIR FLEXPEN/FLEX TOUCH 100 UNITS/ML 3ML SC SCH (21:00)
[2017-11-24] MEDS: INSULIN ASPART 100 UNITS/ML 3 ML PEN SC SCH (21:21)
[2017-11-24] MEDS: LEVETIRACETAM 500 MG TAB PO SCH (21:28)
[2017-11-24] MEDS: METOPROLOL TARTRATE 50 MG TAB PO SCH (21:29)
--- NOTE | 2017-11-24 21:37 | EMERGENCY ROOM VISIT NOTE ---
History Report prepared by Anthony: Raleigh Auguste Under the Supervision of: Dr. Leeroy Salcedo M.D. First contact with patient: 17:21 Chief Complaint: CHEST PAIN Stated Complaint: HEART PAIN- CARDIAC HX Nursing Triage Summary: Patient presents with c/o left sided chest pain that began today around 1200pm today He has taken nitro x 2 at home He states he currently has no pain He has history of CAD with bypass History of Present Illness The patient is a 72 year old male who presents to the Emergency Room with complaints of intermittent left side chest pain that began at 1200 today. He states it was a sharp pain under his left arm. He has taken two Nitroglycerin and notes the chest pain is now very mild. He has a history of CAD with bypass surgery. He does not remember if the pain is similar to previous chest pain in the past. He notes a cough, though non-productive. He reports bilateral leg swelling for months. He states he is on a water pill. He reports pain in his left leg since a stroke he had in 2013. Per , the patient has left-sided weakness at baseline due to a history of strokes. He denies any nausea, vomiting , fevers, shortness of breath, or abdominal pain. Source of History: patient Onset: 1200 today Position: chest (left-sided) Symptom Intensity: mild Quality: sharp Timing: intermittent Modifying Factors (Relieving): other (Nitroglycerin) Associated Symptoms: + cough, No fevers, No SOB, No nausea, No vomiting, No abdominal pain Note: He notes bilateral leg swelling and left leg pain. Review of Systems See HPI for pertinent positives & negatives. A total of 10 systems reviewed and were otherwise negative. Past Medical & Surgical Medical Problems: (1) BPH (benign prostatic hyperplasia) (2) Chest pain (3) CVA (cerebral infarction) (4) Diabetes (5) Hyperkalemia (6) Hypertension (7) Pulmonary embolism Surgical Problems: (1) H/O heart bypass surgery (2) History of back surgery (3) History of penile implant Family History Diabetes mellitus Hypertension Kidney disease Social History Smoking Status: Former Smoker Alcohol Use: none Drug Use: none Marital Status: Housing Status: lives with family Occupation Status: retired Current/Historical Medications Scheduled Allopurinol (Zyloprim), 300 MG PO DAILY Amlodipine (Norvasc), 10 MG PO DAILY Aspirin (Aspirin 81), 81 MG PO DAILY Atorvastatin (Lipitor), 20 MG PO DAILY Benazepril (Lotensin), 40 MG PO DAILY Cholecalciferol (Vitamin D3), 5,000 UNITS PO DAILY Colchicine (Colchicine), 0.6 MG PO DAILY Finasteride (Finasteride), 5 MG PO HS Furosemide (Furosemide), 20 MG PO DAILY Insulin Aspart (Novolog), 18 UNIT SQ WM Insulin Detemir (Levemir), 65 UNITS SQ HS Levetiracetam (Keppra), 500 MG PO Q12 Metoprolol Tartrate (Metoprolol Tartrate), 50 MG PO BID Nitroglycerin (Nitrostat), 1 TAB SL UD Pantoprazole (Protonix), 40 MG PO DAILY Pyridoxine Hcl (Vitamin B-6), 100 MG PO DAILY Sennosides-Docusate Sodium (Senna S), 1 TABLET PO AMPM Tamsulosin HCl (Tamsulosin HCl), 0.4 MG PO HS Allergies Coded Allergies: Aspirin (Verified Allergy, Severe, SWOLLEN TONGUE-TAKES BABY ASA AT HOME, 11/24/17) Citric Acid (Verified Allergy, Severe, SWOLLEN TONGUE, 01/11/17) Sodium Bicarbonate (Verified Allergy, Severe, SWOLLEN TONGUE, 01/11/17) Adhesives (Verified Allergy, Unknown, SKIN BLISTERS AND TEARING, 01/11/17) Physical Exam Vital Signs Date Time Temp Pulse Resp B/P (MAP) Pulse Ox O2 Delivery O2 Flow Rate FiO2 11/24/17 18:31 62 20 155/69 94 11/24/17 18:11 68 11/24/17 18:02 95 Room Air 11/24/17 18:01 63 20 162/89 95 11/24/17 17:17 36.9 62 20 164/76 93 Room Air Physical Exam Constitutional: Vital signs reviewed. Eyes: Pupils are equal round reactive to light. Conjunctiva are noninjected. ENT: Pharynx is clear without erythema or exudate. Mucous membranes are moist. Neck supple without meningeal signs. Respiratory: Clear to auscultation bilaterally. Breath sounds are equal bilaterally. Cardiovascular: Regular rate and rhythm. No rubs or gallops. GI: Soft, nondistended and nontender. Bowel sounds are present. Musculoskeletal: Bilateral pedal edema. No lower extremity tenderness. Integumentary: No cyanosis. Neurological: The patient is awake and alert. Left-sided weakness. Psychiatric: Normal affect. Medical Decision & Procedures ER Provider Diagnostic Interpretation: Radiology results as stated below per my review and the radiologist's interpretation: CHEST ONE VIEW PORTABLE HISTORY: 72 years-old Male cp acute atypical chest pain COMPARISON: Chest radiograph 01/11/2017, chest CT 06/08/2016 TECHNIQUE: Portable AP view of the chest FINDINGS: Cardiac silhouette is again enlarged, unchanged. Prior median sternotomy and CABG. No pneumothorax, pleural effusion, focal airspace consolidation or overt pulmonary edema. Mild right hemidiaphragmatic elevation is unchanged. Degenerative changes are seen within the shoulders and spine. IMPRESSION: Cardiomegaly without overt pulmonary edema. The above report was generated using voice recognition software. It may contain grammatical, syntax or spelling errors. Electronically signed by: Nico Cornell M.D. 11/24/2017 6:05 PM Dictated Date/Time: 11/24/2017 6:03 PM VENOUS DOPPLER LWR EXT BILA HISTORY: Pain. Edema. eval for dvt COMPARISON STUDY: None. FINDINGS: Normal venous Doppler right leg. Findings of acute deep venous thrombosis left leg] vein one of the 2. Posterior tibial veins. There is no involvement of the popliteal vein or any structures appear to the knee. IMPRESSION: 1. Normal venous Doppler right leg. 2. Focal acute deep venous thrombosis left posterior tibial vein inferior to the knee. No additional acute findings are present. The above report was generated using voice recognition software. It may contain grammatical, syntax or spelling errors. Electronically signed by: Prashant Glasgow M.D. 11/24/2017 8:06 PM Dictated Date/Time: 11/24/2017 8:04 PM Laboratory Results 11/24/17 17:44 Red Blood Count 4.07, Mean Corpuscular Volume 86.2, Mean Corpuscular Hemoglobin 28.5, Mean Corpuscular Hemoglobin Concent 33.0, Mean Platelet Volume 10.5, Neutrophils (%) (Auto) 60.5, Lymphocytes (%) (Auto) 30.2, Monocytes (%) (Auto) 6.3, Eosinophils (%) (Auto) 2.1, Basophils (%) (Auto) 0.6, Neutrophils # (Auto) 4.03, Lymphocytes # (Auto) 2.01, Monocytes # (Auto) 0.42, Eosinophils # (Auto) 0.14, Basophils # (Auto) 0.04 11/24/17 17:44 Test 11/24/17 17:44 11/24/17 17:47 White Blood Count 6.66 K/uL (4.8-10.8) Red Blood Count 4.07 M/uL (4.7-6.1) Hemoglobin 11.6 g/dL (14.0-18.0) Hematocrit 35.1 % (42-52) Mean Corpuscular Volume 86.2 fL (80-100) Mean Corpuscular Hemoglobin 28.5 pg (25-34) Mean Corpuscular Hemoglobin Concent 33.0 g/dl (32-36) Platelet Count 190 K/uL (130-400) Mean Platelet Volume 10.5 fL (7.4-10.4) Neutrophils (%) (Auto) 60.5 % Lymphocytes (%) (Auto) 30.2 % Monocytes (%) (Auto) 6.3 % Eosinophils (%) (Auto) 2.1 % Basophils (%) (Auto) 0.6 % Neutrophils # (Auto) 4.03 K/uL (1.4-6.5) Lymphocytes # (Auto) 2.01 K/uL (1.2-3.4) Monocytes # (Auto) 0.42 K/uL (0.11-0.59) Eosinophils # (Auto) 0.14 K/uL (0-0.5) Basophils # (Auto) 0.04 K/uL (0-0.2) RDW Standard Deviation 49.1 fL (36.4-46.3) RDW Coefficient of Variation 15.7 % (11.5-14.5) Immature Granulocyte % (Auto) 0.3 % Immature Granulocyte # (Auto) 0.02 K/uL (0.00-0.02) Prothrombin Time 10.0 SECONDS (9.0-12.0) Prothromb Time International Ratio 1.0 (0.9-1.1) Activated Partial Thromboplast Time 24.1 SECONDS (21.0-31.0) Partial Thromboplastin Ratio 0.9 Anion Gap 8.0 mmol/L (3-11) Estimated GFR () 39.9 Estimated GFR (Non- 34.4 BUN/Creatinine Ratio 20.7 (10-20) Calcium Level 8.9 mg/dl (8.5-10.1) Bedside Troponin I < 0.030 ng/ml (0-0.045) Laboratory results as reviewed by me. Medications Administered Medications (Trade) Dose Ordered Sig/Ziyad Route Start Time Stop Time Status Last Admin Dose Admin Nitroglycerin (Nitroglycerin 2% Oint) 0.5 inch NOW ONCE EXT 11/24/17 17:30 11/24/17 17:31 DC 11/24/17 17:54 0.5 INCH ECG Per My Interpretation Indication: chest pain Rate (beats per minute): 68 Rhythm: normal sinus Findings: Q waves (Inferior), other (No ST elevation) ED Course 1722: The patient was evaluated in room B12B. A complete history and physical exam was performed. 1729: Ordered Nitroglycerin 0.5 inch EXT 1811: I reassessed the patient at this time. He states that he had a very sharp pain when he took a deep breath. He agreed to have a CT scan. 1817: I reassessed the patient at this time. He is feeling better and resting comfortably. I discussed the results and treatment plan with the patient. The patient's Creat is 1.9. He cannot have a CT scan. I recommended further evaluation. I answered all pertaining questions that he had. He expressed understanding and verbalized agreement. 1818: I spoke with Dr. Adrián Zeng, [facility] hospitalist. We discussed the patient's case. The patient will be evaluated by the [facility] for further management. 2018: I reassessed the patient at this time. He states that he has an IVC filter due to a hemorrhage stroke he had in 2013. 2022: I spoke with Dr. Matthew, [facility] hospitalist. We discussed the patient' s case. He will do a CT Chest without contrast. Medical Decision This is a 72-year-old male who presents with chest pain. Differential diagnosis includes unstable angina, AL, pleurisy, pneumonia, pneumothorax, pulmonary embolism. I did perform a limited focused review of portions of the patient's old chart on the electronic medical record. The patient has had no recent pertinent visits to this hospital. I did evaluate the patient as noted above. Patient is presenting with intermittent chest pain starting at noon today. He states is better after he took to his nitroglycerin. He currently has minimal pain. IV access was established. 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 I did treat him with Nitropaste. I did order and personally review the patient's 12- lead EKG and chest x-ray as described above. I did order and review the patient 's blood work as noted in the electronic medical record. His troponin is negative. He does have chronic kidney disease at baseline. I did reassess the patient. He stated that he had an episode of chest pain which was worse after deep breath but then went away. I was initially planning on doing a CT scan of his chest to rule out PE but unfortunately patient's creatinine was elevated. I therefore ordered Dopplers of the lower extremities to rule out DVT. I did recommend hospitalization for further evaluation and repeat cardiac enzymes. I did discuss case with the hospitalist and case hardener. I did later see the results of the Dopplers. He does have a left tibial vein DVT. I did discuss the test results with the patient and his . He states that he was recently diagnosed with a DVT and had a [place] filter placed as he had a hemorrhagic stroke at that time in 2013. Given he has an IVC filter I was not sure that heparin was indicated, especially with his history of hemorrhagic stroke. He did have pleuritic chest pain earlier but currently denies any chest pain. He denies any shortness of breath. I did discuss the results with Dr. Crow stated that he would assess the patient and get a CT of the chest noncontrast and decide whether or not he needed anticoagulation. Medication Reconcilliation Current Medication List: was personally reviewed by me Blood Pressure Screening Patient's blood pressure: Elevated blood pressure Blood pressure disposition: Referred to PCP Consults Time Called: 1818 Consulting Physician: Dr. Adrián Zeng [facility] hospitalist I spoke with ALEXA Solorzano hospitalist. We discussed the patient's case. The patient will be evaluated by the [facility] for further management. Additional Consults: Time Called: 2022 Consulted Physician: Dr. Matthew [facility] hospitalist Additional Comments: I spoke with ALEXA Agee hospitalist. We discussed the patient's case. He will do a CT without contrast. Impression Primary Impression: Left sided chest pain Additional Impressions: Chronic kidney disease Deep vein thrombosis (DVT) of left lower extremity Scribe Attestation The scribe's documentation has been prepared under my direct and personally reviewed by me in its entirety. I confirm that the note above accurately reflects all work, treatment, procedures, and medical decision making performed by me. Departure Information Dispostion Being Evaluated By Hospitalist Referrals Tamiko Maier M.D. (PCP) Patient Instructions My [facility] Problem Qualifiers Additional Impressions: Chronic kidney disease Chronic kidney disease stage: unspecified stage Qualified Codes: N18.9 - Chronic kidney disease, unspecified Deep vein thrombosis (DVT) of left lower extremity Affected thrombotic vein of extremity: tibial Chronicity: acute Qualified Codes: I82.442 - Acute embolism and thrombosis of left tibial vein
[2017-11-24] MEDS: HEPARIN SOD 5000 UNIT/0.5 ML CARP SQ SCH (21:39)
[2017-11-24] MEDS ORDERED: IV FLUIDS COMPLETED PRN (21:45)
[2017-11-24 23:21] VITALS: BP 152/71; PULSE 52; TEMP 36.5; O2SAT 95
[2017-11-25 03:23] VITALS: BP 147/71; PULSE 58; TEMP 36.5; O2SAT 92
[2017-11-25] MEDS: HEPARIN SOD 5000 UNIT/0.5 ML CARP SQ SCH ×2 (05:23→12:28)
--- NOTE | 2017-11-25 06:35 | DIAGNOSTIC IMAGING REPORT ---
HEAD WITHOUT CONTRAST (CT) CLINICAL HISTORY: 72 years-old Male with Hx of intracranial bleed, will start heparin drip. Follow-up study in a patient with history of intracranial hemorrhage TECHNIQUE: Multiple axial CT images of the head were obtained without contrast. A dose lowering technique was utilized adhering to the principles of ALARA. CT DOSE: 1139.46 mGy.cm COMPARISON: Head CT 01/31/2017 FINDINGS: No acute intracranial hemorrhage, midline shift, intracranial mass, hydrocephalus, territorial ischemia or abnormal extra-axial collection. Motion degraded exam. Cerebral vascular calcifications are seen at the level of the skull base. Mild atrophy with ex vacuo ventriculomegaly. Remote lacunar infarction of the left lentiform nucleus. Encephalomalacia from remote infarction involving the right MCA territory, notably within the right parietal lobe. The calvarium is intact. The paranasal sinuses, mastoid air cells, and middle ear cavities are clear. Note is made of a metopic suture. Soft tissues and orbits are unremarkable. IMPRESSION: No acute intracranial abnormality. The above report was generated using voice recognition software. It may contain grammatical, syntax or spelling errors. Electronically signed by: Nico Cornell M.D. 11/25/2017 6:34 AM Dictated Date/Time: 11/25/2017 6:30 AM
[2017-11-25] MEDS: INSULIN ASPART 100 UNITS/ML 3 ML PEN SC SCH ×2 (07:00→12:27)
--- NOTE | 2017-11-25 07:18 | DIAGNOSTIC IMAGING REPORT ---
(CHEST) THORAX WITHOUT CT DOSE: 718.83 mGy.cm CLINICAL HISTORY: 72 years-old Male with pleuritic chest pain, R/O pneumonia. Acute pleuritic chest pain with concern for pneumonia TECHNIQUE: Multiaxial CT images of the chest were performed without contrast. A dose lowering technique was utilized adhering to the principles of ALARA. COMPARISON: Chest radiograph 11/24/2017, chest CT 06/08/2016. FINDINGS: Thyroid appears enlarged and heterogeneous, notably the left lower lobe is enlarged. Evaluation for adenopathy is limited without the use of IV contrast. Calcified mediastinal and right hilar lymph nodes are compatible with prior granulomatous disease. Prominent left hilar lymph nodes measure up to 8 mm, likely physiologic. Heart is mildly enlarged with coronary arterial disease. Calcifications of the aortic annulus are also noted. Prior median sternotomy and CABG. No aortic aneurysm identified. There is moderate atherosclerosis of the aorta. Dilation of the main pulmonary artery, 3.5 cm suggests pulmonary arterial hypertension within the appropriate clinical setting. Evaluation of the lung parenchyma is limited secondary to respiratory motion artifact. No pneumothorax or pleural effusion. Bibasilar subsegmental opacities suggest atelectasis is noted with hypoinflated lungs. No suspicious pulmonary nodules are identified. Central airways are patent. Small sliding-type hiatal hernia. Calcified granulomata of the spleen. Soft tissues are within normal limits. The bones appear intact.. IMPRESSION: 1. No acute intrathoracic abnormality identified, specifically no focal airspace consolidation to suggest pneumonia. 2. Low lung volumes with areas of subsegmental atelectasis. 3. Prior granulomatous disease. 4. Cardiomegaly with dilation of the main pulmonary artery suggesting pulmonary arterial hypertension. 5. Prior median sternotomy and CABG. Electronically signed by: Nico Cornell M.D. 11/25/2017 7:16 AM Dictated Date/Time: 11/25/2017 7:09 AM
[2017-11-25 07:35] VITALS: BP 179/78; PULSE 62; TEMP 37; O2SAT 94
[2017-11-25] MEDS: LEVETIRACETAM 500 MG TAB PO SCH (07:59)
[2017-11-25] MEDS: METOPROLOL TARTRATE 50 MG TAB PO SCH (08:01)
[2017-11-25 08:28] LABS: CHOLESTEROL 148 mg/dl (0-200); LDL CHOLESTEROL CALCULATED 66 mg/dl
[2017-11-25] MEDS ORDERED: PANTOprazole SOD 40 MG TAB PO SCH (09:00)
[2017-11-25] MEDS ORDERED: AMLODIPINE BESYLATE 5 MG TAB PO SCH (09:00)
[2017-11-25] MEDS ORDERED: FUROSEMIDE 20 MG TAB PO SCH (09:00)
[2017-11-25] MEDS ORDERED: COLCHICINE 0.6 MG TAB PO SCH (09:00)
[2017-11-25] MEDS ORDERED: ALLOPURINOL 300 MG TAB PO SCH (09:00)
[2017-11-25] MEDS ORDERED: DOCUSATE SODIUM/SENNA 50/8.6MG TAB PO SCH (09:00)
[2017-11-25] MEDS ORDERED: BENAZEPRIL HCL 10 MG TAB PO SCH (09:00)
[2017-11-25] MEDS ORDERED: ATORVASTATIN 10 MG TAB PO SCH (09:00)
[2017-11-25] MEDS ORDERED: PYRIDOXINE HCL 50 MG TAB PO SCH (09:00)
[2017-11-25] MEDS ORDERED: ASPIRIN 81 MG ECTAB PO SCH (09:00)
--- NOTE | 2017-11-25 09:31 | DIAGNOSTIC IMAGING REPORT ---
LUNG IMAGING VQ CLINICAL HISTORY: DVT with pleuritic chest pain, R/O PE. COMPARISON STUDY: Chest CT 11/25/2017. TECHNIQUE: Immediately following the inhalation of 33 mCi of technetium 99 M DTPA for the ventilation scan and the intravenous administration of 5.5 mCi of technetium 99 M MAA for the perfusion scan, anterior, oblique, lateral, and posterior views of the chest were obtained. FINDINGS: No segmental or mismatched defects identified within the lungs. Cardiac silhouette is enlarged. IMPRESSION: Above findings are consistent with a very low probability scan. Electronically signed by: Duke Farr M.D. 11/25/2017 9:30 AM Dictated Date/Time: 11/25/2017 9:28 AM
[2017-11-25 09:44] LABS: HEMATOCRIT 31.6 % (42-52); HEMOGLOBIN 10.4 g/dL (14.0-18.0); MEAN CELL VOLUME 85.9 fL (80-100); MEAN CORPUSCULAR HEMOGLOBIN 28.3 pg (25-34); MEAN CORPUSCULAR HGB CONC 32.9 g/dl (32-36); MEAN PLATELET VOLUME 10.3 fL (7.4-10.4); PLATELET COUNT 166 K/uL (130-400); RED CELL DISTRIBUTION WIDTH CV 15.6 % (11.5-14.5); RED CELL DISTRIBUTION WIDTH SD 48.7 fL (36.4-46.3); WHITE BLOOD COUNT 6.58 K/uL (4.8-10.8)
[2017-11-25] MEDS ORDERED: METOPROLOL TARTRATE 1 MG/ML VIAL ONE ×2 (09:48→09:49)
[2017-11-25] MEDS ORDERED: DOBUTamine HCL 12.5 MG/ML 20 ML VIAL ONE (09:48)
[2017-11-25] MEDS ORDERED: ATROPINE SULFATE 0.1 MG/ML 5ML SYR ONE ×2 (09:48→09:49)
[2017-11-25] MEDS ORDERED: PERFLUTREN LIPID MICROSPHERE (DEFINITY) IV ONE (10:41)
--- NOTE | 2017-11-25 11:40 | DOBUTAMINE ECHO ---
*NOTICE TO RECEIVING LIBERTARIAN AGENCY This information is strictly Confidential and protected under [place] law. [place] law prohibits you from making any further disclosure of this information unless further disclosure is expressly permitted by the written consent of the person to whom it pertains or is authorized by law. A general authorization for the release of medical or other information is not sufficient for this purpose. Hospital accepts no responsibility if the information is made available to any other person, INCLUDING THE PATIENT. Interpretation Summary * Name: REMIGIO WEATHERS Study Date: 11/25/2017 09:12 AM BP: 132/62 mmHg * Patient Location: C.2T\S\S229\S\1 HR: 51 * : 1945 (M/d/yyyy) Gender: Male Height: 62 in * Age: 72 yrs Ethnicity: [place] Weight: 210 lb * Ordering Physician: Chitra Bah * Referring Physician: Self, Referred * Performed By: Sade Grande RDCS * * Reason For Study: Chest Pain * BSA: 2.0 m2 * -- Conclusions -- * Dobutamine Stress Echo: * 1. Negative Dobutamine stress echo for ischemia at 88 % MPHR. * 2. Borderline Dobutamine ECG for ischemia at 88 % MPHR. * 3. Appropriate blood pressure response. * 4. No arrhythmia. * 5. No chest pain reported. * 6. Technically difficult study, enhanced with IV Definity. * ECHO: * 1. Mildly dilated left ventricle with normal systolic function. EF 60-65%. No regional wall motion abnormalities. No significant left ventricular hypertrophy. Type 2 diastolic dysfunction. * 2. Sclerotic aortic valve without significant stenosis. * 3. Normal estimated right ventricular systolic pressure. * 4. Technically difficult study, enhanced with IV Definity. Procedure Details * DOBUTAMINE ECHO, CPT#[id number] * ECHO DOPPLER, CPT #[id number] * ECHO COLOR FLOW, CPT #[id number] * The study was technically difficult with many images being suboptimal in quality. * A contrast injection of Definity was performed to improve assessment of LV function. * Contrast was injected into an intravenous site in the right arm. * One vial of Definity ultrasound contrast was diluted in normal saline to a total volume of 10 ml. A total of '8' ml of solution was administered during imaging. * Lot # [id number] of Definity utilized for procedure. * Expiration date . * The attending nurse who injected the contrast agent was Maria Guadalupe Lara RN. Left Ventricle * Mildly dilated left ventricle with normal systolic function. EF 60-65%. No regional wall motion abnormalities. No significant left ventricular hypertrophy. * Ejection Fraction = 60-65%. * The left ventricular ejection fraction increases normally with stress. The left ventricular end-systolic cavity size reduces post-stress (normal response). The left ventricular wall motion with stress is normal. * Resting wall motion: Normal. Stress wall motion: Appropriate increase in Left ventricular systolic function and decrease in cavity size. No stress induced segmental wall motion abnormalities. Right Ventricle * The right ventricle is not well visualized. * The right ventricle is grossly normal size. * The right ventricular systolic function is normal as assessed by tricuspid annular plane systolic excursion (TAPSE) (normal >1.5 cm). Atria * The left atrial size is normal. * Right atrium not well visualized. Mitral Valve * There is mild mitral annular calcification. * The mitral valve is not well visualized. * There is no mitral valve stenosis. * Significant mitral regurgitation is absent. Tricuspid Valve * The tricuspid valve is not well visualized. * There is no tricuspid stenosis. * Significant tricuspid regurgitation is absent. Aortic Valve * Sclerotic aortic valve without significant stenosis. * There is no significant aortic regurgitation. Pulmonic Valve * The pulmonic valve is not well visualized. Great Vessels * The aortic root is normal size. * Normal IVC size and inspiratory collapse. Pericardium * There is no pericardial effusion. Stress Parameters * Sinus bradycardia at 57 bpm. * 0.[address] depression in leads II and aVF noted in recovery. * No arrhythmia were noted with stress. * The stress portion of this study was personally supervised by the undersigned interpreting physician. * Rest heart rate was '51' BPM. * Rest blood pressure was '132/62' * Maximum heart rate achieved was 129 bpm. * Maximum heart rate was 88 % of maximum age-predicted heart rate. * Maximum blood pressure was '170/63' * Maximum Dobutamine infusion rate was '50' mcg/kg/min. * A total of 0.5 mg of intravenous Atropine was used to supplement Dobutamine for heart rate response. * Dobutamine infusion was terminated due to achieving target heart rate * A total of 5 mg of IV Metoprolol was administered to reverse Dobutamine-induced tachycardia. * The patient did not exhibit any symptoms during drug infusion. MMode 2D Measurements and Calculations IVSd 1.1 cm LVIDd 5.3 cm LVPWd 1.1 cm IVS/LVPW 1.0 EDV(Teich) 136.3 ml EDV(cubed) 150.2 ml LV mass(C)d 227.8 grams LV mass(C)dI 116.7 grams/m\S\2 Ao root diam 3.6 cm Ao root area 10.1 cm\S\2 ACS 1.8 cm LA dimension 4.2 cm LA/Ao 1.2 LVAd ap4 27.3 cm\S\2 LVLd ap4 7.0 cm EDV(MOD-sp4) 90.6 ml EDV(sp4-el) 90.0 ml LVAs ap4 15.4 cm\S\2 LVLs ap4 6.1 cm ESV(MOD-sp4) 35.2 ml ESV(sp4-el) 33.1 ml EF(MOD-sp4) 61.1 % EF(sp4-el) 63.3 % LVAd ap2 24.1 cm\S\2 LVLd ap2 7.6 cm EDV(MOD-sp2) 65.9 ml EDV(sp2-el) 65.1 ml LVAs ap2 12.1 cm\S\2 LVLs ap2 6.1 cm ESV(MOD-sp2) 22.5 ml ESV(sp2-el) 20.2 ml EF(MOD-sp2) 65.9 % EF(sp2-el) 68.9 % LVLd %diff 7.2 % EDV(MOD-bp) 79.9 ml LVLs %diff 0.50 % ESV(MOD-bp) 28.0 ml EF(MOD-bp) 65.0 % SV(MOD-sp4) 55.4 ml SI(MOD-sp4) 28.4 ml/m\S\2 SV(MOD-sp2) 43.5 ml SI(MOD-sp2) 22.3 ml/m\S\2 SV(MOD-bp) 51.9 ml SI(MOD-bp) 26.6 ml/m\S\2 SV(sp4-el) 56.9 ml SI(sp4-el) 29.2 ml/m\S\2 SV(sp2-el) 44.9 ml SI(sp2-el) 23.0 ml/m\S\2 Doppler Measurements and Calculations MV E max deepak 115.9 cm/sec MV A max deepak 97.0 cm/sec MV E/A 1.2 MV dec time 0.23 sec Ao V2 max 136.4 cm/sec Ao max PG 7.4 mmHg Ao max PG (full) 4.6 mmHg LV V1 max PG 2.8 mmHg LV V1 max 84.4 cm/sec TV E max deepak 60.1 cm/sec PA V2 max 78.2 cm/sec PA max PG 2.4 mmHg TR max deepak 218.9 cm/sec RVSP(TR) 22.2 mmHg RAP systole 3.0 mmHg
[2017-11-25 12:03] VITALS: BP 133/75; PULSE 70; TEMP 36.8; O2SAT 97
[2017-11-25 12:19] LABS: BLOOD UREA NITROGEN 35 mg/dl (7-18); CARBON DIOXIDE 25 mmol/L (21-32); CREATININE 1.68 mg/dl (0.60-1.40); GLUCOSE 218 mg/dl (70-99); POTASSIUM 4.6 mmol/L (3.5-5.1); SODIUM 142 mmol/L (136-145)
[2017-11-25 14:55] VITALS: BP 177/74; PULSE 60; TEMP 36.8; O2SAT 93
[2017-11-25] MEDS ORDERED: MTR/600 PO (15:02)
--- NOTE | 2017-11-25 15:11 | Discharge Instructions ---
Discharge Instructions Date of Service Nov 25, 2017. Admission Reason for Admission: Chest Pain Discharge Discharge Diagnosis / Problem: (1) Deep vein thrombosis (DVT) of left lower extremity VTE Date & Time Date of VTE Diagnosis: Nov 24, 2017 Time of VTE Diagnosis: 18:19 Discharge Goals Goal(s): Decrease discomfort, Diagnostic testing Activity Recommendations Activity Limitations: resume your previous activity (as tolerated) . Instructions / Follow-Up Instructions / Follow-Up You were admitted to the hospital presenting with left sided chest pain that is worse with coughing and deep breaths. This was concerning for a clot in the lungs (pulmonary embolus), which you have had in the past. Due to your kidney function, a CT of the chest could not be done with contrast to rule out a pulmonary embolus. Instead, another test called a VQ scan was done, which showed a low probability of clot. You were found, however, to have an acute clot in one of the deep veins of your left lower leg below the knee, called a deep vein thrombosis or DVT. This condition is usually treated with full dose anticoagulation, or blood thinner. Due to your history of a hemorrhagic stroke the last time you were on a full dose anticoagulant and due to the fact that there is a IVC filter in place, we will not be starting anticoagulation at this time. Instead you have been given a short course of a non-steroidal anti- inflammatory drug (NSAID) to take, which may help. You will also require a follow up ultrasound of the left leg in a few weeks. Due to your initial chest pain, you also underwent a cardiac work up, which was negative. You are now medically stable for discharge. Medications: *Please take ibuprofen 600 mg four times a day for the next 14 days. *Continue your other home medications as prescribed. Recommendations: *You may apply warm compresses to back of left lower leg. Follow up: *You will be scheduled to follow up with your primary care provider in about 1 week. You will need a repeat venous Doppler ultrasound of the left lower leg to reassess the clot in about 4 weeks. Please seek medical attention if you experience fevers, chills, sweats, dizziness/lightheadedness, loss of consciousness, chest pain, shortness of breath, nausea, vomiting, numbness or tingling. Call your Primary Care doctor if you experience any of the following: * Swelling or Pain in your leg * Sudden, continuous pain deep in a muscle * Pain that worsens when you are active or when you stand still for a long time * Chest Pain * Sudden Shortness of Breath * Rapid or pounding heart beat * Fainting * Dizziness * Cough with blood or bloody sputum * Sweating more than normal * Bruises * Heavy or uncontrolled bleeding * Blood in your urine, stool or vomit * Black or tarry stools Caring for Your Self at Home: * Avoid sitting, standing or lying down for long periods without moving your legs and feet * When traveling by car, stop to get out and move around at least once every 3 hours * On long airplane, train or bus rides, get up and move around when possible * If you can't get up, wiggle your toes and tighten your calves to keep your blood moving Current Hospital Diet Patient's current hospital diet: Diabetes Type 2 Diet, AHA Diet (Heart Healthy) Discharge Diet Recommended Diet: AHA Diet (Heart Healthy), Diabetes Type 2 Diet Procedures Procedures Performed: Stress echocardiogram Pending Studies Studies pending at discharge: no Laboratory Results Hemoglobin A1c Test 09/02/17 11:10 Range/Units Estimated Average Glucose 171 mg/dl Hemoglobin A1c 7.6 H 4.5-5.6 % Lipid Panel Test 11/25/17 07:36 Range/Units Triglycerides Level 269 H 0-150 mg/dl Cholesterol Level 148 0-200 mg/dl HDL Cholesterol 28 mg/dl Cholesterol/HDL Ratio 5.3 LDL Cholesterol, Calculated 66 mg/dl Medical Emergencies . Who to Call and When: Medical Emergencies: If at any time you feel your situation is an emergency, please call 911 immediately. . Non-Emergent Contact Non-Emergency issues call your: Primary Care Provider Call Non-Emergent contact if: you have a fever, your pain is not controlled, your pain is worsening, your pain is unusual for you, your pain is concerning you, you have any medication questions . Past History Medical & Surgical History: (1) Deep vein thrombosis (DVT) of left lower extremity . "Provider Documentation" section prepared by Karis Sung. .
[2017-11-25 15:17] VITALS: BP 177/74; PULSE 60; TEMP 36.8; O2SAT 93
--- NOTE | 2017-11-25 15:23 | Discharge Summary ---
Discharge Summary Date of Service Nov 25, 2017. 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, H/O DVT S/ P IVC Filter, CKD Stage III (Baseline 1.9-2), T2DM, Seizure D/O, GERD, Gout, and BPH Immunizations: Have You Had Influenza Vaccine: Yes History of Tetanus Vaccine?: Yes History of Pneumococcal: Yes Pneumococcal Date: Mar 17, 2008 History of Hepatitis B Vaccine: Unknown Procedures: Stress echo: Interpretation Summary * Name: REMIGIO WEATHERS Study Date: 11/25/2017 09:12 AM BP: 132/62 mmHg * Patient Location: 2\S\S229\S\1 HR: 51 * : 1945 (M/d/yyyy) Gender: Male Height: 62 in * Age: 72 yrs Ethnicity: [place] Weight: 210 lb * Ordering Physician: Chitra Bah * Referring Physician: Self, Referred * Performed By: Sade Grande RDCS * * Reason For Study: Chest Pain * BSA: 2.0 m2 * -- Conclusions -- * Dobutamine Stress Echo: * 1. Negative Dobutamine stress echo for ischemia at 88 % MPHR. * 2. Borderline Dobutamine ECG for ischemia at 88 % MPHR. * 3. Appropriate blood pressure response. * 4. No arrhythmia. * 5. No chest pain reported. * 6. Technically difficult study, enhanced with IV Definity. * ECHO: * 1. Mildly dilated left ventricle with normal systolic function. EF 60-65% . No regional wall motion abnormalities. No significant left ventricular hypertrophy. Type 2 diastolic dysfunction. * 2. Sclerotic aortic valve without significant stenosis. * 3. Normal estimated right ventricular systolic pressure. * 4. Technically difficult study, enhanced with IV Definity. Procedure Details * DOBUTAMINE ECHO, CPT#[id number] * ECHO DOPPLER, CPT #[id number] * ECHO COLOR FLOW, CPT #[id number] * The study was technically difficult with many images being suboptimal in quality. * A contrast injection of Definity was performed to improve assessment of LV function. * Contrast was injected into an intravenous site in the right arm. * One vial of Definity ultrasound contrast was diluted in normal saline to a total volume of 10 ml. A total of '8' ml of solution was administered during imaging. * Lot # [id number] of Definity utilized for procedure. * Expiration date . * The attending nurse who injected the contrast agent was Maria Guadalupe Lara RN. Left Ventricle * Mildly dilated left ventricle with normal systolic function. EF 60-65%. No regional wall motion abnormalities. No significant left ventricular hypertrophy. * Ejection Fraction = 60-65%. * The left ventricular ejection fraction increases normally with stress. The left ventricular end-systolic cavity size reduces post-stress (normal response). The left ventricular wall motion with stress is normal. * Resting wall motion: Normal. Stress wall motion: Appropriate increase in Left ventricular systolic function and decrease in cavity size. No stress induced segmental wall motion abnormalities. Right Ventricle * The right ventricle is not well visualized. * The right ventricle is grossly normal size. * The right ventricular systolic function is normal as assessed by tricuspid annular plane systolic excursion (TAPSE) (normal >1.5 cm). Atria * The left atrial size is normal. * Right atrium not well visualized. Mitral Valve * There is mild mitral annular calcification. * The mitral valve is not well visualized. * There is no mitral valve stenosis. * Significant mitral regurgitation is absent. Tricuspid Valve * The tricuspid valve is not well visualized. * There is no tricuspid stenosis. * Significant tricuspid regurgitation is absent. Aortic Valve * Sclerotic aortic valve without significant stenosis. * There is no significant aortic regurgitation. Pulmonic Valve * The pulmonic valve is not well visualized. Great Vessels * The aortic root is normal size. * Normal IVC size and inspiratory collapse. Pericardium * There is no pericardial effusion. [~ rep ct add3]] VENOUS DOPPLER LWR EXT BILA HISTORY: Pain. Edema. eval for dvt COMPARISON STUDY: None. FINDINGS: Normal venous Doppler right leg. Findings of acute deep venous thrombosis left leg] vein one of the 2. Posterior tibial veins. There is no involvement of the popliteal vein or any structures appear to the knee. IMPRESSION: 1. Normal venous Doppler right leg. 2. Focal acute deep venous thrombosis left posterior tibial vein inferior to the knee. No additional acute findings are present. LUNG IMAGING VQ CLINICAL HISTORY: DVT with pleuritic chest pain, R/O PE. COMPARISON STUDY: Chest CT 11/25/2017. TECHNIQUE: Immediately following the inhalation of 33 mCi of technetium 99 M DTPA for the ventilation scan and the intravenous administration of 5.5 mCi of technetium 99 M MAA for the perfusion scan, anterior, oblique, lateral, and posterior views of the chest were obtained. FINDINGS: No segmental or mismatched defects identified within the lungs. Cardiac silhouette is enlarged. IMPRESSION: Above findings are consistent with a very low probability scan. Medication Reconciliation New Medications: Ibuprofen (Ibuprofen) 600 Mg Tab 600 MG PO QID for 14 Days, #56 TABS Continued Medications: Allopurinol (Zyloprim) 300 Mg Tab 300 MG PO DAILY, TAB Amlodipine (Norvasc) 5 Mg Tab 10 MG PO DAILY, TAB Aspirin (Aspirin 81) 81 Mg Tab 81 MG PO DAILY Atorvastatin (Lipitor) 10 Mg Tab 20 MG PO DAILY, TAB Benazepril (Lotensin) 40 Mg Tab 40 MG PO DAILY, TAB Cholecalciferol (Vitamin D3) 1,000 Unit Tab 5000 UNITS PO DAILY for 90 Days, TAB 3 Refills Colchicine (Colchicine) 0.6 Mg Tab 0.6 MG PO DAILY, TAB Finasteride (Finasteride) 5 Mg Tab 5 MG PO HS, #30 TAB 3 Refills Furosemide (Furosemide) 20 Mg Tab 20 MG PO DAILY Insulin Aspart (Novolog) 100 Units/Ml Inj 18 UNIT SQ WM Insulin Detemir (Levemir) 100 Units/Ml Inj 65 UNITS SQ HS Levetiracetam (Keppra) 500 Mg Tab 500 MG PO Q12, TAB Metoprolol Tartrate (Metoprolol Tartrate) 50 Mg Tab 50 MG PO BID, #60 TAB 3 Refills Nitroglycerin (Nitrostat) 0.4 Mg Tab 1 TAB SL UD, #100 TAB 3 Refills Pantoprazole (Protonix) 40 Mg Tab 40 MG PO DAILY, TAB Pyridoxine Hcl (Vitamin B-6) 50 Mg Tab 100 MG PO DAILY Sennosides-Docusate Sodium (Senna S) 1 Tab Tab 1 TABLET PO AMPM Tamsulosin HCl (Tamsulosin HCl) 0.4 Mg Cap 0.4 MG PO HS, #30 CAP 3 Refills Discharge Exam Patient reports feeling well. He denies any more chest pain/pleuritic pain or SOB. He states he did not have any chest pain or shortness of breath during his stress test either. He denies any new pain, numbness or tingling in the left lower extremity. He is eager to return home. The patient denies fevers, chills, sweats, chest pain, palpitations, claudication, cough, wheezing, shortness of breath, nausea, vomiting, abdominal pain, dysuria, hematuria, urinary retention, paralysis, weakness, numbness and tingling. Constitutional: No fever, No chills, No sweats Eyes: No worsening of vision, No eye pain, No diplopia ENT: No hearing loss, No nasal symptoms, No trouble swallowing Respiratory: No cough, No wheezing, No shortness of breath Cardiovascular: No chest pain, No claudication, No palpitations Abdomen: No pain, No nausea, No vomiting Musculoskeletal: No joint pain, No muscle pain, No swelling Genitourinary - Male: No dysuria, No urinary retention, No hematuria Neurologic: No acute paralysis, No weakness, No acute numbness/tingling Integumentary: No rash, No itch, No color change General appearance: +Obese. Well-developed, well-nourished, no apparent distress Head: Normocephalic, atraumatic Eyes: Normal inspection, PERRL, EOMI ENT: Normal ENT inspection, hearing grossly normal, pharynx normal Neck: Supple, no JVD, trachea midline Respiratory/Chest: Lungs clear to auscultation, normal breath sounds, no respiratory distress Cardiovascular: Regular rate & rhythm, no gallop, no murmur Abdomen/GI: Normal bowel sounds, non-tender, soft Extremities/Musculoskeletal: +1+ pitting edema. Normal inspection, no calf tenderness Neurological/Psych: +Residual left sided weakness from previous CVA. Alert, normal mood/affect, oriented x 3 Skin: Normal color, warm/dry, no rash Hospital Course 72 y/o male with a history of CAD S/P CABG (2001), Ischemic CVA w/hemorrhagic conversion (2013) with L Residual Deficits, H/O PE S/P IVC Filter (2013), CKD Stage III, T2DM, Seizure D/O, GERD, Gout, and BPH who presents with pleuritic chest pain Atypical Chest Pain with CAD S/P CABG--resolved - Admit to tele for observation. No acute events overnight, pt in sinus bradycardia/sinus rhythm with HR 50s-60s - Continue ASA, statin, beta miguel, FRIDA inhibitor - Renewed nitroglycerin per pt request - Troponin negative x 3 - Stress echo negative for ischemia. EF 60-65%, no WMA. Type 2 diastolic dysfunction - Concern for PE. Unable to obtain CTA chest due to elevated creatinine. VQ scan low probability of PE Acute DVT of LLE, h/o PE s/p IVC filter -Acute DVT of left posterior tibial vein inferior to knee, no DVT in RLE -Reviewed outpatient records. Pt had originally an ischemic stroke in 2013 at [facility], received TPA. He then had a PE and was anticoagulated w/Lovenox and Coumadin. He was discharged to rehab and then developed stroke symptoms again, found to have hemorrhagic conversion of stroke. Anticoagulation stopped, IVC filter placed -Spoke to Dr. Pierre for anticoagulation recommendations. Given acute DVT is asymptomatic, isolated below the knee, IVC filter in place, and previous hemorrhagic stroke/complication for anticoagulation, she did NOT recommend pursuing full dose anticoagulation for treatment. Recommended short course of NSAIDs and follow up Doppler ultrasound in a few weeks -Ibuprofen 600 mg QID x 14 days, warm compresses -F/u venous Doppler ultrasound LLE 4 weeks H/o ischemic stroke w/hemorrhagic conversion w/residual left sided weakness-- stable -Head CT no acute disease -Continue ASA, statin, beta miguel, FRIDA Chronic B/L Lower Extremity Edema--stable - Norvasc may be contributing to his lower extremity edema - Continue Lasix 20 mg daily - was initially Q2D but was increased at last nephrology visit HTN, HLD--stable - Norvasc 10 mg daily, Lopressor 50 mg BID, Benazepril 40 mg daily, Atorvastatin 20 mg daily CKD stage III--stable -Creatinine 1.68 on 11/25, improved from 1.88, within baseline T2DM: A1c 7.6 - Reduce Levermir to 30 units SC HS given NPO status tomorrow morning and cover with SSI - Resume outpt regimen on discharge Gout: - Allopurinol 300 mg daily and Colchicine 0.6 mg daily BPH: - Proscar 5 mg HS and Flomax 0.4 mg HS Seizure Disorder--developed following stroke, no seizures since 2013 - Keppra 500 mg BID GERD: - Protonix 40 mg daily DVT Prophylaxis: Heparin, no therapeutic dosing due to h/o hemorrhagic stroke, see above Disposition: - PT/OT ok to return home w/family support PA Physician Supervision Note: I interviewed and examined the patient. Discussed with Karis GAR and agree with findings and plan as documented in the note. Any exceptions or clarifications are listed here: None Patient presented with with some chest pain he is a DVT below his knee however he had previous hemorrhagic conversion of a stroke and an IVC filter placed. As above after discussion with a coagulation specialist who felt the patient should be treated conservatively for [id number] DVT LB use, warm compression and NSAIDs he did have a low probability VQ scan a CT of his head which was unremarkable likewise he also had negative troponin trend Patient was stable time I visited and his is at the bedside he had no neurological deficits he was not short of breath his cardiac exam was regular his lungs were clear his lower extremities were without pain discomfort swelling or venous cords. Patient be discharged home with local care for his below the knee DVT and he was given direct instructions on what to look for to prompt him to return for evaluation Documented By: Leeroy Fernandes Total Time Spent: Greater than 30 minutes This includes examination of the patient, discharge planning, medication reconciliation, and communication with other providers. Discharge Instructions Please refer to the electronic Patient Visit Report (Discharge Instructions) for additional information. Additional Copies To Tamiko Maier M.D.
[2017-11-25] MEDS ORDERED: NTRGSL/4 SL (15:26)
== END 2017-11-25 16:04 | disposition home or self-care (01) ==
LOC: C.EDB 17:12 → C.2T 19:11 → ENRESERV 19:31
PROVIDERS: ADMIT Internal Medicine; ATTEND Internal Medicine
DX: I82.442 Acute embolism and thrombosis of left tibial vein (principal); I69.354 Hemiplegia and hemiparesis following cerebral infarction affecting left non-dominant side; I25.10 Atherosclerotic heart disease of native coronary artery without angina pectoris; N18.3 Chronic kidney disease, stage 3 (moderate); N40.0 Benign prostatic hyperplasia without lower urinary tract symptoms; G40.909 Epilepsy, unspecified, not intractable, without status epilepticus; M10.9 Gout, unspecified; E11.9 Type 2 diabetes mellitus without complications; I12.9 Hypertensive chronic kidney disease with stage 1 through stage 4 chronic kidney disease, or unspecified chronic kidney disease; Z86.711 Personal history of pulmonary embolism; Z95.1 Presence of aortocoronary bypass graft; Z83.3 Family history of diabetes mellitus; Z82.49 Family history of ischemic heart disease and other diseases of the circulatory system; Z84.1 Family history of disorders of kidney and ureter; Z87.891 Personal history of nicotine dependence; Z79.899 Other long term (current) drug therapy; Z79.82 Long term (current) use of aspirin; Z79.4 Long term (current) use of insulin

== ENCOUNTER → 2017-12-02 | Outpatient (CLI) | payer OTHER ==
[~2017-12-02] MED LIST changes: +LSX20 PO; +MTR/600 PO; -PHEN-1043 PO
[2017-12-02 18:02] LABS: BASO % 0.6 %; BASO ABS # 0.05 K/uL (0-0.2); EOS % 2.5 %; EOS ABS # 0.19 K/uL (0-0.5); HEMATOCRIT 35.2 % (42-52); HEMOGLOBIN 11.5 g/dL (14.0-18.0); IG# 0.02 K/uL (0.00-0.02); LYMPH % 27.3 %; MEAN CELL VOLUME 86.9 fL (80-100); MEAN CORPUSCULAR HEMOGLOBIN 28.4 pg (25-34); MEAN CORPUSCULAR HGB CONC 32.7 g/dl (32-36); MEAN PLATELET VOLUME 10.9 fL (7.4-10.4); MONO % 6.1 %; MONO ABS # 0.47 K/uL (0.11-0.59); NEUT % 63.2 %; NEUT ABS # 4.87 K/uL (1.4-6.5); PLATELET COUNT 176 K/uL (130-400); RED CELL DISTRIBUTION WIDTH CV 16.2 % (11.5-14.5); RED CELL DISTRIBUTION WIDTH SD 50.8 fL (36.4-46.3)
[2017-12-02 18:17] LABS: ALBUMIN 3.6 gm/dl (3.4-5.0); BLOOD UREA NITROGEN 34 mg/dl (7-18); CALCIUM 8.9 mg/dl (8.5-10.1); CARBON DIOXIDE 23 mmol/L (21-32); CREATININE 2.14 mg/dl (0.60-1.40); GLUCOSE 132 mg/dl (70-99); POTASSIUM 4.5 mmol/L (3.5-5.1); SODIUM 143 mmol/L (136-145)
[2017-12-02 18:18] LABS: PHOSPHORUS 4.2 mg/dl (2.5-4.9)
== END | disposition home or self-care (01) ==
LOC: C.LABMFLN 18:02
PROVIDERS: ATTEND Family Medicine
DX: N18.3 Chronic kidney disease, stage 3 (moderate) (principal)

== ENCOUNTER → 2017-12-09 | Outpatient (CLI) | payer OTHER ==
[2017-12-09 18:47] LABS: ALBUMIN 3.3 gm/dl (3.4-5.0); BLOOD UREA NITROGEN 32 mg/dl (7-18); CALCIUM 9.4 mg/dl (8.5-10.1); CARBON DIOXIDE 29 mmol/L (21-32); CREATININE 1.82 mg/dl (0.60-1.40); GLUCOSE 241 mg/dl (70-99); PHOSPHORUS 3.6 mg/dl (2.5-4.9); POTASSIUM 3.8 mmol/L (3.5-5.1); SODIUM 140 mmol/L (136-145)
== END | disposition home or self-care (01) ==
LOC: C.LABMFLN 10:55
PROVIDERS: ATTEND Family Medicine
DX: N17.9 Acute kidney failure, unspecified (principal)

== ENCOUNTER → 2018-03-24 | Outpatient (CLI) | payer OTHER ==
[~2018-03-24] MED LIST changes: -AMLO-110 PO; +AMLO5TAB3 PO
[2018-03-24 12:53] LABS: BASO % 0.9 %; BASO ABS # 0.07 K/uL (0-0.2); EOS % 3.1 %; EOS ABS # 0.25 K/uL (0-0.5); HEMATOCRIT 38.8 % (42-52); HEMOGLOBIN 12.3 g/dL (14.0-18.0); IG# 0.01 K/uL (0.00-0.02); LYMPH % 24.9 %; LYMPH ABS # 2.02 K/uL (1.2-3.4); MEAN CELL VOLUME 87.8 fL (80-100); MEAN CORPUSCULAR HEMOGLOBIN 27.8 pg (25-34); MEAN CORPUSCULAR HGB CONC 31.7 g/dl (32-36); MEAN PLATELET VOLUME 11.5 fL (7.4-10.4); MONO % 4.7 %; MONO ABS # 0.38 K/uL (0.11-0.59); NEUT % 66.3 %; NEUT ABS # 5.39 K/uL (1.4-6.5); PLATELET COUNT 202 K/uL (130-400); RED CELL DISTRIBUTION WIDTH CV 15.4 % (11.5-14.5); RED CELL DISTRIBUTION WIDTH SD 49.3 fL (36.4-46.3); WHITE BLOOD COUNT 8.12 K/uL (4.8-10.8)
[2018-03-24 13:11] LABS: HEMOGLOBIN A1C 9.4 % (4.5-5.6)
[2018-03-24 13:16] LABS: ALBUMIN 3.6 gm/dl (3.4-5.0); ALKALINE PHOSPHATASE 110 U/L (45-117); ALT/SGPT 65 U/L (12-78); AST/SGOT 65 U/L (15-37); BLOOD UREA NITROGEN 43 mg/dl (7-18); CALCIUM 9.5 mg/dl (8.5-10.1); CARBON DIOXIDE 27 mmol/L (21-32); CREATININE 1.95 mg/dl (0.60-1.40); GLUCOSE 148 mg/dl (70-99); PHOSPHORUS 3.5 mg/dl (2.5-4.9); POTASSIUM 4.3 mmol/L (3.5-5.1); SODIUM 142 mmol/L (136-145); TOTAL PROTEIN 7.9 gm/dl (6.4-8.2); URIC ACID 7.3 mg/dl (2.6-7.2)
== END | disposition home or self-care (01) ==
LOC: C.LABMFLN 10:51
PROVIDERS: ATTEND Family Medicine
DX: Z01.812 Encounter for preprocedural laboratory examination (principal); N52.9 Male erectile dysfunction, unspecified; E11.22 Type 2 diabetes mellitus with diabetic chronic kidney disease; N18.3 Chronic kidney disease, stage 3 (moderate); M10.9 Gout, unspecified

== ENCOUNTER → 2018-03-29 | Outpatient (CLI) | payer OTHER ==
--- NOTE | 2018-03-29 12:21 | DIAGNOSTIC IMAGING REPORT ---
CAROTID DOPPLER NECK ART HISTORY: Atherosclerotic change stenosis of right ICA COMPARISON: 10/22/2015. TECHNIQUE: Real-time, grayscale, and color Doppler sonography of the carotid arteries was performed. Imaging reviewed in the transverse and longitudinal planes. All measurements were calculated based on NASCET criteria. FINDINGS: Antegrade flow is seen in the bilateral vertebral arteries. The brachial pressures are hemodynamically similar. Moderate plaque formation bilaterally The peak systolic velocity within the right ICA is 145. The right systolic ratio is 2.5. The peak systolic velocity within the left ICA is 114. The left systolic ratio is 1.2. IMPRESSION: 1. Moderate to rather significant plaque formation bilaterally. 2. 50/60% stenosis right internal carotid artery. 3. No change from the prior exam. The above report was generated using voice recognition software. It may contain grammatical, syntax or spelling errors. Electronically signed by: Prashant Glasgow M.D. 03/29/2018 12:20 PM Dictated Date/Time: 03/29/2018 12:17 PM
== END | disposition home or self-care (01) ==
LOC: C.ULTR 11:00
PROVIDERS: ATTEND Family Medicine
DX: I65.23 Occlusion and stenosis of bilateral carotid arteries (principal)